=== PATIENT | female | born 1955 | race Caucasian/White ===

== ENCOUNTER 2020-12-21 21:24 | Emergency (ER) | payer OTHER, SELFPAY ==
[2020-12-21 21:35] VITALS: BP 163/69; PULSE 69; RESP 18; TEMP 36.6; O2SAT 100; BMI 36.1
[2020-12-21 22:44] LABS: COVID-19 Test Negative (Negative)
--- NOTE | 2020-12-22 01:25 | ED_ITS ---
HPI - URI/Sore Throat General Chief Complaint: Upper Respiratory Symptoms Stated Complaint: chest congestion,cough Time Seen by Provider: 12/22/20 01:17 Source: patient Mode of arrival: ambulatory Limitations: no limitations History of Present Illness HPI Narrative: Patient history of asthma using inhalers frequently gets sick post COVID-19 vaccinated complaining of increased cough and congestion for last 3 4 days no fever no chills no significant shortness of breath saturating 100% at room air on arrival Related Data Previous Rx's Medication Instructions Recorded doxycycline hyclate 100 mg tablet 100 mg PO BID #20 tab 12/22/20 prednisone 20 mg tablet 40 mg PO DAILY #10 tab 12/22/20 Allergies Allergy/AdvReac Type Severity Reaction Status Date / Time Penicillins Allergy Mild RASH Unverified 11/05/19 15:00 acetaminophen [From VICODIN] Allergy Unknown STOMACH Unverified 11/05/19 15:00 UPSET From VICODIN Allergy Unknown STOMACH Uncoded 11/05/19 15:00 UPSET Review of Systems Review of Systems: Yes all other systems are reviewed and are negative [facility] [place] Social History Social History Advance Directives: No Physical Exam Vital Signs: Vital Signs: Last Vital Signs Temp 97.8 F 12/21/20 21:35 Pulse 69 12/21/20 21:35 Resp 18 12/21/20 21:35 BP 163/69 H 12/21/20 21:35 Pulse Ox 100 12/21/20 21:35 Body Mass Index 36.1 Appearance: Alert. Oriented X3. No acute distress. Eyes: No pallor icterus ENT: Pharynx normal. Oral Mucosa moist Neck: Normal inspection. Neck supple. CVS: Normal heart rate and rhythm. Pulses normal. Respiratory: No respiratory distress. Equal air entry bilateral, no wheezing/rales/rhonchi prolonged expiration Abdomen: Soft and nontender. Bowel sounds are present, no mass palpable, no CVA tenderness Skin: Skin warm and dry. Normal skin color. Normal skin turgor. Extremities: No lower extremity edema. No calf tenderness Neuro: Oriented X 3. MDM - URI/Sore Throat MDM Narrative Medical decision making narrative: Patient has swelling bronchitis COVID-19 negative discharge patient home on prednisone doxycycline Lab Data Labs: Lab Results 12/21/20 Range/Units 22:25 COVID-19 ([facility]) Negative (Negative) COVID-19 Clin Com See Note Discharge Plan Discharge Clinical Impression: Bronchitis Patient Disposition: Home, Self-Care Instructions: Acute Bronchitis (ED) Additional Instructions: Continue your inhaler take prednisone antibiotic as prescribed follow with PCP Prescriptions: New doxycycline hyclate 100 mg tablet 100 mg PO BID Qty: 20 RF: 0 prednisone 20 mg tablet 40 mg PO DAILY Qty: 10 RF: 0
[2020-12-22] MEDS: predniSONE 20 MG TABLET 40 MG PO (01:36)
[2020-12-22 01:45] VITALS: BP 163/63; PULSE 66; RESP 18; O2SAT 99
== END 2020-12-22 01:47 | disposition home or self-care (01) ==
PROVIDERS: Emergency Provider Internal Medicine
DX: J40 Bronchitis, not specified as acute or chronic (principal); Z20.822 Contact with and (suspected) exposure to COVID-19
CPT/HCPCS: 36415; 87635; 99283; 99284

== ENCOUNTER 2021-02-21 19:41 | Emergency (ER) | payer OTHER, SELFPAY ==
--- NOTE | ~2021-02-21 | XR_ITS ---
EXAMINATION: XR CHEST CLINICAL INFORMATION: Covid 19 positive, cough, fever and chest pain. COMPARISON: Chest radiograph dated from 07/12/2012. TECHNIQUE: AP view of the chest was obtained. FINDINGS: Minimal interstitial prominence without focal airspace opacities, pleural effusions or pneumothorax. Unchanged appearance of the cardiomediastinal silhouette. No acute osseous abnormalities. Visualized upper abdomen is within normal limits. 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 XR/XR chest 1V IMPRESSION: Mild interstitial prominence, increased since 2012 which could be seen in the setting of asthma, bronchitis or atypical infections. No focal consolidation.
[2021-02-21 19:53] VITALS: BP 171/71; BP 187/64; PULSE 78; RESP 20; TEMP 37.4; O2SAT 97; O2SAT 98; BMI 36.2
--- NOTE | 2021-02-21 21:35 | ECG_ITS ---
Test Reason : NAUSEA Blood Pressure : / mmHG Vent. Rate : 085 BPM Atrial Rate : 085 BPM P-R Int : 146 ms QRS Dur : 098 ms QT Int : 352 ms P-R-T Axes : 023 -18 124 degrees QTc Int : 418 ms Normal sinus rhythm Left ventricular hypertrophy with repolarization abnormality ( R in aVL , [place] product ) Cannot rule out Septal infarct , age undetermined Abnormal ECG When compared with ECG of 12-JUL-2012 04:02, Minimal criteria for Septal infarct are now Present ST now depressed in Lateral leads Nonspecific T wave abnormality no longer evident in Inferior leads Referred By: Howard Bernard Electronically Signed By:JANET CHANG MD
--- NOTE | 2021-02-21 21:37 | ED.GENADULT ---
HPI - General Adult General Chief complaint: Nausea/Vomiting/Diarrhea Stated complaint: Chest pain/ Covid + Time Seen by Provider: 02/21/21 19:55 Source: patient Mode of arrival: EMS Limitations: no limitations History of Present Illness HPI narrative: 65-year-old female who presents emergency department for evaluation of worsening symptoms secondary to COVID-19 infection. The patient received the 2 shot Moderna COVID-19 vaccination. She states that she tested positive for COVID-19 on 02/13/2020, approximately 9 days prior to evaluation. She states that her symptoms have gotten worse over the past 3 days. She states that she has a constant, throbbing headache which is moderate to severe in intensity. She states that she has had a persistent nonproductive cough, fever and shortness of breath. She states that she has chest pain which she describes as pressure sensation located throughout her chest which is worse with coughing and with breathing. She complains of nausea and vomiting and has had multiple episodes of vomiting over the past 3 days. She has not been able to eat food she has been able to drink small amounts of fluid. She states she has severe myalgias and arthralgias. The patient states she is feeling very weak and dizzy. The patient is a kidney transplant patient. She states she had a kidney transplanted at [facility] approximately 9 years ago. Related Data Home Medications Medication Instructions Recorded Confirmed atorvastatin 40 mg tablet 1 tab PO BEDTIME 02/21/21 02/21/21 calcifediol 30 mcg capsule,24 1 cap PO DAILY 02/21/21 02/21/21 hr,extended release (Rayald) carvedilol 12.5 mg tablet 1 tab PO BID 02/21/21 02/21/21 dorzolamide 22.3 mg-timolol 6.8 1 drp OPHTHALMIC (EYE) BID 02/21/21 02/21/21 mg/mL eye drops gabapentin 100 mg capsule 100 - 300 mg PO TID PRN 02/21/21 02/21/21 insulin glargine 100 unit/mL (3 35 unit SUBCUT BEDTIME 02/21/21 02/21/21 mL) subcutaneous pen (Lantus Solostar U-100 Insulin) insulin lispro 100 unit/mL 16 unit SUBCUT TID 02/21/21 02/21/21 subcutaneous pen (Humalog KwikPen (U-100) Insulin) latanoprost 0.005 % eye drops 1 drp OPHTHALMIC (EYE) BEDTIME 02/21/21 02/21/21 losartan 50 mg tablet 1 tab PO DAILY 02/21/21 02/21/21 mycophenolate sodium 180 mg 2 tab PO BID 02/21/21 02/21/21 tablet,delayed release oxycodone-acetaminophen 5 mg-325 1 tab PO QID PRN 02/21/21 02/21/21 mg tablet pantoprazole 40 mg tablet,delayed 1 tab PO DAILY 02/21/21 02/21/21 release tacrolimus 1 mg capsule, 3 cap PO BID 02/21/21 02/21/21 immediate-release Previous Rx's Medication Instructions Recorded azithromycin 250 mg tablet See Rx Instructions .ROUTE 02/22/21 (Zithromax Z-Sunny) .COMPLEX #6 tab morphine 15 mg immediate release 15 mg PO Q4-6H PRN #10 tab 02/22/21 tablet ondansetron 4 mg disintegrating 4 mg PO Q6-8H PRN #14 tab 02/22/21 tablet Allergies Allergy/AdvReac Type Severity Reaction Status Date / Time Penicillins Allergy Mild RASH Unverified 11/05/19 15:00 acetaminophen [From VICODIN] Allergy Unknown STOMACH Unverified 11/05/19 15:00 UPSET From VICODIN Allergy Unknown STOMACH Uncoded 11/05/19 15:00 UPSET [facility] Past Medical History [facility] Narrative: Past medical history: Diabetes mellitus, hypertension, hyperlipidemia, coronary artery disease with stents placed 13 years ago, asthma, bronchitis, kidney transplant 9 years ago, diabetic neuropathy, glaucoma, pinched nerve in her neck and back. Past surgical history: Kidney transplant 9 years prior at [facility], x2. Social history: She denies tobacco alcohol and drug use. Social History Social History Advance Directives: No Advance Directives Information Provided: No Physical Exam Vital Signs: Vital Signs: Last Vital Signs Temp 99.4 F 02/21/21 19:53 Pulse 78 02/22/21 00:00 Resp 15 02/22/21 00:25 BP 172/58 H 02/22/21 00:00 Pulse Ox 96 02/22/21 00:00 BMI result Body Mass Index 36.2 Const: Other: Awake, alert, female patient, very pleasant and cooperative, very persistent dry nonproductive sending cough, appears to be in distress secondary to her cough and her body aches. Answers all questions appropriately. HENMT: Head: Yes normal to inspection, Yes normocephalic and Yes atraumatic Ears: external ears normal General nose exam: Normal external nose present Face and sinus: Yes normal facial exam Mouth: Normal oral and palatal mucosa present Throat: Yes posterior oropharynx normal Eyes: General: appearance normal, both eyes and all related structures Pupils: Equal, round and reactive pupils present Neck: Neck: Yes normal visual inspection, Yes no lymphadenopathy, Yes trachea midline and Yes supple Chest: Chest palpation & inspection: normal inspection of the chest and normal palpation of entire chest wall Resp: Effort & Inspection: normal respiratory effort and able to speak in complete sentences Auscultation: clear to auscultation bilaterally Cardio: Rate: regular rate Rhythm: regular rhythm Heart sounds: S1 normal heart sound present, S2 normal heart sound present and no murmurs GI: Inspection: Yes normal to inspection Palpation (GI): Soft to palpation, nontender and no guarding Auscultation: normal bowel sounds : General: Yes no CVA tenderness Back/Spine/Pelvis: Back: no CVA tenderness Skin: General skin exam: no rashes or lesions noted Neuro: Cranial nerves: Yes CN's II-XII intact bilaterally and Yes Equal, round and reactive pupils present Cognition (Neuro): normal cognition Motor exam (neuro): 5/5 motor strength present throughout Extrem: General: Yes normal to inspection Psych: Appearance: grossly normal Speech and movement: Normal speech and movement present Affect: normal affect Attitude: cooperative Thought process: Normal thought process present Thought content: Normal thought content present Course Course Course Narrative: 65-year-old female with multiple medical problems including renal transplant 9 years prior who tested positive for COVID-19 on 02/13/2020 (9 days prior to evaluation) who presents emergency department for evaluation of worsening symptoms including chest pain, shortness of breath, body aches, nausea, vomiting, diarrhea and increased fatigue. Initial vital signs revealed a temperature of 99.4?, pulse of 78, respiratory 20, O2 saturation of 97% on room air. The patient did have an elevated blood pressure of 187/64. Exam was otherwise unremarkable. The patient's symptoms are consistent with her COVID-19 infection. I ordered a CBC, CMP, BNP, ESR, ferritin, LDH, lactic acid, lipase, PT/INR, PTT, procalcitonin, troponin and urinalysis. I will also obtain an EKG and a chest x-ray. Patient was ordered to get morphine 4 mg IV, Zofran 4 mg IV, Tylenol 975 mg orally and normal saline x1 L. 0109: Laboratory evaluation: Anemia with an H&H of 11.3 and 34.7, this is chronic. Potassium was slightly elevated at 5.3. BUN was elevated at 25 with a normal creatinine of 1.2. Glucose was elevated 176. COVID-19 inflammatory markers were elevated (CRP 3.95, ferritin 1454, LDH 247). High sensitive troponin I was elevated at 25.7 however given the fact that she has had pain for 5 days I do not think that this represents myocardial infarction. Chest x-ray revealed very subtle increase in interstitial markings with no acute infiltrate. Twelve EKG revealed inverted T-waves in lead 1 and aVL with poor R-wave progression, the poor R-wave progression is old. At this time I believe the patient's symptoms are consistent with COVID-19 infection, she is not hypoxic and her chest x-ray revealed mild interstitial changes which could be consistent with early COVID pneumonia verses atypical pneumonia. Given fact that she is on immunosuppressant several start her on Zithromax Z-Sunny. Patient does take oxycodone at home but this is not controlling her pain. She was advised to stop taking her oxycodone she was prescribed morphine. She is also given prescription for Zofran. She was discharged home with printed and verbal instructions. Medical Decision Making Lab Data Result diagrams: 02/22/21 00:08 02/21/21 22:06 Labs: Lab Results 02/21/21 02/21/21 02/21/21 Range/Units 22:06 22:06 22:06 WBC (4.8-10.8) X10*3/uL RBC (4.20-5.50) X10*6/uL Hgb (12.0-16.0) g/dl Hct (37.0-47.0) % MCV (80.0-98.0) fL MCH (27.0-33.0) pg MCHC (31.0-35.0) g/dl RDW (11.0-16.0) % Plt Count (160-400) X10*3/uL MPV (9.4-12.3) fL Immature Gran % (Auto) (0.0-0.4) % Neut % (Auto) (45-73) % Lymph % (Auto) (20-40) % Bay % (Auto) (2-11) % Eos % (Auto) (0-4) % Baso % (Auto) (0-2) % Lymph # (Auto) (1.2-4.9) X10*3/uL Bay # (Auto) (0.1-1.2) X10*3/uL Eos # (Auto) (0.0-0.4) X10*3/uL Baso # (Auto) (0.0-0.2) X10*3/uL Abs Immat Gran (auto) (0.00-0.03) X10*3/uL Absolute Neuts (auto) (2.0-8.3) x10*3/uL Absolute Nucleated RBC (0.0-0.012) X10*3/uL Nucleated RBC % (auto) (0.0-0.2) /100WBC PT 13.5 H (9.9-13.0) SEC INR 1.2 H (0.9-1.1) APTT 32.9 (24.1-38.0) SEC Sodium 134 L (135-145) mmol/L Potassium 5.3 H (3.3-5.1) mmol/L Chloride 107 (96-108) mmol/L Carbon Dioxide 20 L (22-29) mmol/L Anion Gap 12 (12-20) BUN 25 H (9-16) mg/dL Creatinine 1.21 (0.5-1.4) mg/dL Estim Creat Clear Calc 47.7 Estimated GFR 45 Random Glucose 176 H (60-115) mg/dL Lactic Acid (0.5-2.0) mmol/L Calcium 9.9 (8.4-10.2) mg/dL Ferritin 1454 H (10-250) ng/mL Total Bilirubin 0.3 (0.0-1.0) mg/dL AST 21 (5-31) U/L ALT 24 (0-31) U/L Alkaline Phosphatase 140 H (39-117) U/L Lactate Dehydrogenase 247 H (122-220) U/L Troponin I High Sens (<3.5-17.0) ng/L C-Reactive Protein 3.95 H (< or = 0.50) mg/dL B-Natriuretic Peptide (<100) pg/mL Total Protein 7.9 (6.5-8.0) g/dL Albumin 4.6 (3.5-5.0) g/dL Lipase 23 (8-78) U/L Procalcitonin 0.07 ng/mL 02/22/21 02/22/21 02/22/21 Range/Units 00:08 00:08 00:08 WBC 5.3 (4.8-10.8) X10*3/uL RBC 3.78 L (4.20-5.50) X10*6/uL Hgb 11.3 L (12.0-16.0) g/dl Hct 34.1 L (37.0-47.0) % MCV 90.2 (80.0-98.0) fL MCH 29.9 (27.0-33.0) pg MCHC 33.1 (31.0-35.0) g/dl RDW 12.2 (11.0-16.0) % Plt Count 170 (160-400) X10*3/uL MPV 11.3 (9.4-12.3) fL Immature Gran % (Auto) 0.2 (0.0-0.4) % Neut % (Auto) 75.1 H (45-73) % Lymph % (Auto) 15.4 L (20-40) % Bay % (Auto) 9.1 (2-11) % Eos % (Auto) 0.2 (0-4) % Baso % (Auto) 0.0 (0-2) % Lymph # (Auto) 0.8 L (1.2-4.9) X10*3/uL Bay # (Auto) 0.5 (0.1-1.2) X10*3/uL Eos # (Auto) 0.0 (0.0-0.4) X10*3/uL Baso # (Auto) 0.0 (0.0-0.2) X10*3/uL Abs Immat Gran (auto) 0.01 (0.00-0.03) X10*3/uL Absolute Neuts (auto) 4.0 (2.0-8.3) x10*3/uL Absolute Nucleated RBC 0.000 (0.0-0.012) X10*3/uL Nucleated RBC % (auto) 0.0 (0.0-0.2) /100WBC PT (9.9-13.0) SEC INR (0.9-1.1) APTT (24.1-38.0) SEC Sodium (135-145) mmol/L Potassium (3.3-5.1) mmol/L Chloride (96-108) mmol/L Carbon Dioxide (22-29) mmol/L Anion Gap (12-20) BUN (9-16) mg/dL Creatinine (0.5-1.4) mg/dL Estim Creat Clear Calc Estimated GFR Random Glucose (60-115) mg/dL Lactic Acid 0.8 (0.5-2.0) mmol/L Calcium (8.4-10.2) mg/dL Ferritin (10-250) ng/mL Total Bilirubin (0.0-1.0) mg/dL AST (5-31) U/L ALT (0-31) U/L Alkaline Phosphatase (39-117) U/L Lactate Dehydrogenase (122-220) U/L Troponin I High Sens 25.7 H (<3.5-17.0) ng/L C-Reactive Protein (< or = 0.50) mg/dL B-Natriuretic Peptide 40 (<100) pg/mL Total Protein (6.5-8.0) g/dL Albumin (3.5-5.0) g/dL Lipase (8-78) U/L Procalcitonin ng/mL ECG Data Attestation: I personally reviewed and interpreted this ECG as follows: Interpretation: 03/09/2045: Normal sinus rhythm with a rate of 85, normal [place] interval, QRS duration and QTC interval, inverted T-wave in lead 1 and aVL, poor R-wave progression V2, V3 which I believe is lead placement. No ST segment elevation, no ST segment depression, no PACs, no PVCs. Discharge Plan Discharge Clinical Impression: COVID-19 virus infection, Acute dehydration, Vomiting Patient Disposition: Home, Self-Care Instructions: COVID-19 (Coronavirus Disease 2019) (ED) Additional Instructions: Your laboratory evaluation was unremarkable and your kidney function I believe his at your baseline and is normal. Your inflammatory markers are elevated but this is secondary to the COVID-19 infection. Your chest x-ray revealed very subtle early pneumonia which could be caused by the COVID-19 virus or may be secondary to a bacterial infection. I am treating you with an antibiotic called Zithromax Z-Sunny. You were given Zithromax 500 mg here in the emergency department. Take your next dose of Zithromax 250 mg, 2 pills on morning, 02/23/2021. Then take 1 pill each morning for the next 4 days. Take Tylenol (acetaminophen) 500 mg pills, 2 pills every 4-6 hours as needed for pain. For pain not relieved by Tylenol take morphine 15 mg pills, 1 pill every 4 hours as needed for pain. Do not drive or work while taking this medication since they can cause sleepiness. Morphine is a narcotic medication that can be addicting. If you are concerned about addiction you can ask the pharmacist for less pills or do not get this prescription filled. While you are taking morphine you need to stop taking your oxycodone. Do not take these 2 medications together. Follow-up with your doctor in 2 days. Please return to the emergency department if your symptoms get worse or if you develop any symptoms that are concerning to you. Prescriptions: New azithromycin [Zithromax Z-Sunny] 250 mg tablet See Rx Instructions .ROUTE .COMPLEX Qty: 6 RF: 0 morphine 15 mg tablet 15 mg PO Q4-6H PRN (Reason: pain) Qty: 10 RF: 0 ondansetron 4 mg tablet,disintegrating 4 mg PO Q6-8H PRN (Reason: nausea and vomiting) Qty: 14 RF: 0 No Action losartan 50 mg tablet 1 tab PO DAILY RF: 0 latanoprost 0.005 % drops 1 drp ophthalmic (eye) BEDTIME RF: 0 atorvastatin 40 mg tablet 1 tab PO BEDTIME RF: 0 carvedilol 12.5 mg tablet 1 tab PO BID RF: 0 oxycodone-acetaminophen 5-325 mg tablet 1 tab PO QID PRN (Reason: pain) RF: 0 pantoprazole 40 mg tablet,delayed release (DR/EC) 1 tab PO DAILY RF: 0 dorzolamide-timolol 22.3-6.8 mg/mL drops 1 drp ophthalmic (eye) BID RF: 0 gabapentin 100 mg capsule 100 - 300 mg PO TID PRN (Reason: Pain) RF: 0 tacrolimus 1 mg capsule 3 cap PO BID RF: 0 insulin lispro [Humalog KwikPen Insulin] 100 unit/mL insulin pen 16 unit subcut TID RF: 0 Lantus Solostar U-100 Insulin 100 unit/mL (3 mL) insulin pen 35 unit subcut BEDTIME RF: 0 Rayaldee 30 mcg capsule,extended release 24 hr 1 cap PO DAILY RF: 0 mycophenolate sodium 180 mg tablet,delayed release (DR/EC) 2 tab PO BID RF: 0
[2021-02-21 22:22] LABS: INTERNATIONAL NORM RATIO 1.2 (0.9-1.1); Prothrombin Time 13.5 SEC (9.9-13.0)
[2021-02-21 22:25] LABS: Partial Thromboplastin Time 32.9 SEC (24.1-38.0)
[2021-02-21] MEDS: Acetaminophen 325 MG TABLET 975 MG PO (22:28)
[2021-02-21] MEDS: 0.9 % Sodium Chloride 1,000 ML 999 ML IV (22:28)
[2021-02-21] MEDS: ondansetron HCL 4 MG/2 ML VIAL IVPUSH (22:30)
[2021-02-21] MEDS: Morphine Sulfate 4 MG/ML CARTRIDGE IVPUSH (22:32)
[2021-02-21 22:45] VITALS: PULSE 80; RESP 12; O2SAT 96
[2021-02-21 22:49] LABS: Alanine Aminotransferase 24 U/L (0-31); Albumin Level 4.6 g/dL (3.5-5.0); Alkaline Phosphatase 140 U/L (39-117); Anion Gap 12 (12-20); Aspartate Amino Transferase 21 U/L (5-31); Bilirubin Total 0.3 mg/dL (0.0-1.0); Blood Urea Nitrogen 25 mg/dL (9-16); C Reactive Protein 3.95 mg/dL (< or = 0.50); Calcium 9.9 mg/dL (8.4-10.2); Carbon Dioxide 20 mmol/L (22-29); Chloride 107 mmol/L (96-108); Creatinine Clr Calc Pharmacy 47.7; Estimated Glomerular Filt Rate 45; Glucose Random 176 mg/dL (60-115); Lipase 23 U/L (8-78); Potassium 5.3 mmol/L (3.3-5.1); Sodium 134 mmol/L (135-145); Total Protein 7.9 g/dL (6.5-8.0)
[2021-02-21 22:57] LABS: Lactate Dehydrogenase 247 U/L (122-220)
--- NOTE | 2021-02-21 23:07 | PC.NURSE ---
pt a difficult stick, phlebotomy called to obtain blood after tech and RN atttempted
[2021-02-21 23:21] LABS: Ferritin 1454 ng/mL (10-250)
[2021-02-21 23:25] LABS: Procalcitonin 0.07 ng/mL
[2021-02-22] VITALS: BP 172/58; PULSE 78; RESP 16; O2SAT 96
[2021-02-22 00:18] LABS: MANUAL DIFF FLAG NO
[2021-02-22 00:21] LABS: Eosinophils Percent Auto 0.2 % (0-4); Hematocrit 34.1 % (37.0-47.0); Hemoglobin 11.3 g/dl (12.0-16.0); Imm Gran Abs Auto 0.01 X10*3/uL (0.00-0.03); Imm Gran Pct Auto 0.2 % (0.0-0.4); Lymphocytes Absolute Auto 0.8 X10*3/uL (1.2-4.9); Lymphocytes Percent Auto 15.4 % (20-40); Mean Corpuscular HGB Conc 33.1 g/dl (31.0-35.0); Mean Corpuscular Hemoglobin 29.9 pg (27.0-33.0); Mean Corpuscular Volume 90.2 fL (80.0-98.0); Mean Platelet Volume 11.3 fL (9.4-12.3); Monocytes Absolute Auto 0.5 X10*3/uL (0.1-1.2); Monocytes Percent Auto 9.1 % (2-11); Neutrophils Percent Auto 75.1 % (45-73); Platelet Count 170 X10*3/uL (160-400); Red Blood Count 3.78 X10*6/uL (4.20-5.50); Red Cell Distribution Width 12.2 % (11.0-16.0); White Blood Count 5.3 X10*3/uL (4.8-10.8)
[2021-02-22 00:25] VITALS: RESP 15
[2021-02-22] MEDS: Morphine Sulfate 4 MG/ML CARTRIDGE IVPUSH (00:25)
[2021-02-22] MEDS: Gabapentin 300 MG CAPSULE PO (00:26)
[2021-02-22] MEDS: carvediloL 12.5 MG TABLET PO (00:26)
[2021-02-22 00:29] LABS: Lactic Acid 0.8 mmol/L (0.5-2.0)
[2021-02-22 00:40] LABS: B Type Natriuretic Peptide 40 pg/mL (<100); Troponin-I High Sensitivity 25.7 ng/L (<3.5-17.0)
[2021-02-22 01:17] LABS: Erythrocyte Sedimentation Rate 34 MM/HR (0-20)
[2021-02-22] MEDS: Azithromycin 500 MG TABLET PO (01:45)
== END 2021-02-22 01:32 | disposition home or self-care (01) ==
PROVIDERS: Emergency Provider Emergency Medicine Emergency Medical Services; PCP Internal Medicine
DX: U07.1 COVID-19 (principal); E86.0 Dehydration; R11.10 Vomiting, unspecified; R06.02 Shortness of breath
CPT/HCPCS: 36415; 71045; 80053; 82728; 83605; 83615; 83690; 83880; 84145; 84484; 85025; 85610; 85652; 85730; 86140; 87040; 93005; 96361; 96374; 96375; 96376; 99284; 99285; J2270; J2405

== ENCOUNTER 2021-03-07 15:33 | Emergency (ER) | payer OTHER, SELFPAY ==
--- NOTE | ~2021-03-07 | XR_ITS ---
EXAMINATION: XR CHEST CLINICAL INFORMATION: Chest pressure COMPARISON: 02/21/2021 and 07/12/2012 TECHNIQUE: Frontal view of the chest was obtained. FINDINGS: Compared to the prior study, there's been some worsening in appearances with some increased interstitial/nodular density seen in both lungs.. Groundglass infiltrates cannot be entirely excluded. Heart size normal. No evidence of CHF. No pleural effusions are seen. XR/XR chest 1V IMPRESSION: Increased interstitial/nodular consistent both lungs and subtle groundglass infiltrates cannot be excluded. Findings may be secondary to infection. Please correlate clinically.
--- NOTE | 2021-03-07 16:06 | ECG_ITS ---
Test Reason : cp Blood Pressure : / mmHG Vent. Rate : 079 BPM Atrial Rate : 079 BPM P-R Int : 160 ms QRS Dur : 096 ms QT Int : 376 ms P-R-T Axes : 065 -17 127 degrees QTc Int : 431 ms Normal sinus rhythm Left ventricular hypertrophy with repolarization abnormality ( R in aVL , [place] product ) Cannot rule out Septal infarct (cited on or before 21-FEB-2021) Abnormal ECG When compared with ECG of 21-FEB-2021 21:46, No significant change was found Referred By: Generic ED Physician Electronically Signed By:Bill Anders
[2021-03-07 16:43] VITALS: BP 185/53; PULSE 79; RESP 18; TEMP 36.9; O2SAT 97; BMI 38.3
== END 2021-03-07 19:20 | disposition left against medical advice (07) ==
PROVIDERS: Emergency Provider Emergency Medicine; PCP Internal Medicine
DX: R07.9 Chest pain, unspecified (principal); Z86.16 Personal history of COVID-19; I10 Essential (primary) hypertension; E78.5 Hyperlipidemia, unspecified; E11.9 Type 2 diabetes mellitus without complications; J45.909 Unspecified asthma, uncomplicated
CPT/HCPCS: 71045; 93005; 99283

== ENCOUNTER 2021-03-14 13:22 | Emergency (ER) | payer OTHER, SELFPAY ==
--- NOTE | ~2021-03-14 | XR_ITS ---
EXAMINATION: XR CHEST CLINICAL INFORMATION: Cough COMPARISON: Previous chest x-rays most recent February 21 and 03/07/2021 TECHNIQUE: 2 views of the chest were obtained. FINDINGS: The cardiac and mediastinal contours are stable. The lung volumes are low. There is increasing reticular nodular disease. This is greatest in the lower lungs, left greater than right. Findings are questionable for atypical interstitial pneumonia or interstitial lung disease. This is new from prior exam from June 2012. There is no pleural effusion or pneumothorax. There are degenerative changes of the spine. 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 XR/XR chest 2V IMPRESSION: Low lung volumes and increased reticular nodular markings. Appearance is questionable for an atypical interstitial pneumonia versus interstitial lung disease. Clinical correlation is recommended. Chest CT may be helpful.
[2021-03-14 14:02] VITALS: BP 174/68; PULSE 70; RESP 22; TEMP 37.2; O2SAT 99; BMI 33.8
[2021-03-14 14:28] LABS: COVID-19 Test Negative (Negative)
--- NOTE | 2021-03-14 14:56 | ED.URI ---
HPI - URI/Sore Throat General Chief Complaint: Upper Respiratory Symptoms Stated Complaint: cough Time Seen by Provider: 03/14/21 14:48 Source: patient Mode of arrival: ambulatory Limitations: no limitations History of Present Illness HPI Narrative: Patient comes to the emergency room complaining of cough for 2 weeks. Patient states that she is not getting any better. Patient has history of asthma, has been using her inhaler, which does help. She denies fever chills. Related Data Home Medications Medication Instructions Recorded Confirmed atorvastatin 40 mg tablet 1 tab PO BEDTIME 02/21/21 02/21/21 calcifediol 30 mcg capsule,24 1 cap PO DAILY 02/21/21 02/21/21 hr,extended release (Rayaldee) carvedilol 12.5 mg tablet 1 tab PO BID 02/21/21 02/21/21 dorzolamide 22.3 mg-timolol 6.8 1 drp OPHTHALMIC (EYE) BID 02/21/21 02/21/21 mg/mL eye drops gabapentin 100 mg capsule 100 - 300 mg PO TID PRN 02/21/21 02/21/21 insulin glargine 100 unit/mL (3 35 unit SUBCUT BEDTIME 02/21/21 02/21/21 mL) subcutaneous pen (Lantus Solostar U-100 Insulin) insulin lispro 100 unit/mL 16 unit SUBCUT TID 02/21/21 02/21/21 subcutaneous pen (Humalog KwikPen (U-100) Insulin) latanoprost 0.005 % eye drops 1 drp OPHTHALMIC (EYE) BEDTIME 02/21/21 02/21/21 losartan 50 mg tablet 1 tab PO DAILY 02/21/21 02/21/21 mycophenolate sodium 180 mg 2 tab PO BID 02/21/21 02/21/21 tablet,delayed release oxycodone-acetaminophen 5 mg-325 1 tab PO QID PRN 02/21/21 02/21/21 mg tablet pantoprazole 40 mg tablet,delayed 1 tab PO DAILY 02/21/21 02/21/21 release tacrolimus 1 mg capsule, 3 cap PO BID 02/21/21 02/21/21 immediate-release Previous Rx's Medication Instructions Recorded azithromycin 250 mg tablet See Rx Instructions .ROUTE 02/22/21 (Zithromax Z-Sunny) .COMPLEX #6 tab morphine 15 mg immediate release 15 mg PO Q4-6H PRN #10 tab 02/22/21 tablet ondansetron 4 mg disintegrating 4 mg PO Q6-8H PRN #14 tab 02/22/21 tablet albuterol sulfate 90 mcg/actuation 2 puff INHALATION Q4-6H PRN #8.5 g 03/14/21 aerosol inhaler azithromycin 250 mg tablet See Rx Instructions .ROUTE 03/14/21 .COMPLEX #6 tab prednisone 50 mg tablet 50 mg PO DAILY #5 tab 03/14/21 Allergies Allergy/AdvReac Type Severity Reaction Status Date / Time Penicillins Allergy Mild RASH Unverified 11/05/19 15:00 acetaminophen [From VICODIN] Allergy Unknown STOMACH Unverified 11/05/19 15:00 UPSET From VICODIN Allergy Unknown STOMACH Uncoded 11/05/19 15:00 UPSET Review of Systems Review of Systems: Constitutional : No Weight loss, No Fever, No Chills, No Night Sweats, No Fatigue, No Malaise ENT/Mouth : No Hearing loss, No Ear Pain, No Nasal Congestion, No Sinus Pain, No Hoarseness, No sore throat, No Rhinorrhea, No Swallowing Difficulty Eyes: No Eye Pain, No Swelling, No Redness, No Foreign Body, No Discharge, No Vision Changes Cardiovascular : No Chest Pain, No SOB, No Dyspnea on Exertion, No Orthopnea, No Edema, No Palpitations Respiratory : Complaining of dry Cough, No Sputum, intermittent Wheezing, No Smoke Exposure, No Dyspnea Gastrointestinal : No Nausea, No Vomiting, No Diarrhea, No Constipation, No abdominal Pain, No Hematochezia, No Melena Genitourinary : no irregular bleeding, No Dysuria, No Urinary Frequency, No Hematuria, No Urinary Incontinence, No Urgency, No Flank Pain, No Urinary Flow Changes, No Hesitancy Musculoskeletal : No joint pain, No Myalgias, No Joint Swelling Skin : No Skin Lesions, No rash Neuro : No Weakness, No Numbness, No Paresthesias, No Loss of Consciousness, No Dizziness, No Headache Psych : No Anxiety/Panic, No Depression, No SI/HI/AH/VH, No Social Issues, Heme/Lymph: No Bruising, No Bleeding,No Lymphadenopathy Endocrine : No Polyuria, No Polydipsia, No Temperature Intolerance [facility] Past Medical History Medical History (Updated 03/14/21 @ 14:59 by Ally Rey MD) Asthma exacerbation Bronchitis Diabetes High cholesterol HTN (hypertension) Surgical History (Updated 03/14/21 @ 14:05 by Luke Carcamo) Kidney transplant recipient Social History Social History Advance Directives: No Advance Directives Information Provided: No Patient : No Physical Exam Vital Signs: Vital Signs: Last Vital Signs Temp 99 F 03/14/21 14:02 Pulse 70 03/14/21 14:02 Resp 22 H 03/14/21 14:02 BP 174/68 H 03/14/21 14:02 Pulse Ox 99 03/14/21 14:02 BMI result Body Mass Index 33.8 Const: Other: Appearance: Alert. Oriented X3. No acute distress. Eyes: Pupils equal, round and reactive to light. ENT: Pharynx normal. Neck: Normal inspection. Neck supple. No lymph nodes noted. No crepitus CVS: Normal heart rate and rhythm. Pulses normal. Normal S1 and S2 Respiratory: No respiratory distress. Breath sounds normal. No Wheezing. Bilateral rhonchi Abdomen: Soft and nontender. No rigidity. No distention. Skin: Skin warm and dry. Normal skin color. Normal skin turgor. Extremities: No lower extremity edema. No lower extremity edema. No Lacerations. No Rash Neuro: Oriented X 3. No motor deficit. No sensory deficit. Moving all extermities. No slurred speech. Course Course Course Narrative: I discussed the physical exam and x-rays with the patient. Patient may be developing pneumonia. Patient will be started on antibiotic. COVID test negative MDM - URI/Sore Throat Lab Data Labs: Lab Results 03/14/21 Range/Units 14:09 COVID-19 ([facility]) Negative (Negative) COVID-19 Clin Com See Note Imaging Data Chest x-ray: Radiologist's impression: The cardiac and mediastinal contours are stable. The lung volumes are low. There is increasing reticular nodular disease. This is greatest in the lower lungs, left greater than right. Findings are questionable for atypical interstitial pneumonia or interstitial lung disease. This is new from prior exam from June 2012. There is no pleural effusion or pneumothorax. There are degenerative changes of the spine. 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 XR/XR chest 2V IMPRESSION: Low lung volumes and increased reticular nodular markings. Appearance is questionable for an atypical interstitial pneumonia versus interstitial lung disease. Clinical correlation is recommended. Chest CT may be helpful. Discharge Plan Discharge Clinical Impression: Pneumonia Patient Disposition: Home, Self-Care Instructions: Pneumonia (ED) Additional Instructions: Please follow-up with your primary care physician tomorrow. If you have any worsening or new symptoms, please return to the emergency room or call 911 Prescriptions: New azithromycin 250 mg tablet See Rx Instructions .ROUTE .COMPLEX Qty: 6 RF: 0 albuterol sulfate 90 mcg/actuation HFA aerosol inhaler 2 puff inhalation Q4-6H PRN (Reason: shortness of breath or wheezing) Qty: 8.5 RF: 0 prednisone 50 mg tablet 50 mg PO DAILY Qty: 5 RF: 0 No Action losartan 50 mg tablet 1 tab PO DAILY RF: 0 latanoprost 0.005 % drops 1 drp ophthalmic (eye) BEDTIME RF: 0 atorvastatin 40 mg tablet 1 tab PO BEDTIME RF: 0 carvedilol 12.5 mg tablet 1 tab PO BID RF: 0 oxycodone-acetaminophen 5-325 mg tablet 1 tab PO QID PRN (Reason: pain) RF: 0 pantoprazole 40 mg tablet,delayed release (DR/EC) 1 tab PO DAILY RF: 0 dorzolamide-timolol 22.3-6.8 mg/mL drops 1 drp ophthalmic (eye) BID RF: 0 gabapentin 100 mg capsule 100 - 300 mg PO TID PRN (Reason: Pain) RF: 0 tacrolimus 1 mg capsule 3 cap PO BID RF: 0 insulin lispro [Humalog KwikPen Insulin] 100 unit/mL insulin pen 16 unit subcut TID RF: 0 Lantus Solostar U-100 Insulin 100 unit/mL (3 mL) insulin pen 35 unit subcut BEDTIME RF: 0 Rayaldee 30 mcg capsule,extended release 24 hr 1 cap PO DAILY RF: 0 mycophenolate sodium 180 mg tablet,delayed release (DR/EC) 2 tab PO BID RF: 0 azithromycin [Zithromax Z-Sunny] 250 mg tablet See Rx Instructions .ROUTE .COMPLEX Qty: 6 RF: 0 morphine 15 mg tablet 15 mg PO Q4-6H PRN (Reason: pain) Qty: 10 RF: 0 ondansetron 4 mg tablet,disintegrating 4 mg PO Q6-8H PRN (Reason: nausea and vomiting) Qty: 14 RF: 0
== END 2021-03-14 15:05 | disposition home or self-care (01) ==
PROVIDERS: Emergency Provider Emergency Medicine; PCP Internal Medicine
DX: J18.9 Pneumonia, unspecified organism (principal); R05.9 Cough, unspecified; Z20.822 Contact with and (suspected) exposure to COVID-19; Z79.899 Other long term (current) drug therapy
CPT/HCPCS: 71046; 87635; 99283

== ENCOUNTER 2021-05-11 22:37 | Emergency (ER) | payer OTHER, SELFPAY ==
[2021-05-11 22:56] VITALS: BP 156/54; PULSE 71; RESP 16; TEMP 36.5; O2SAT 100; BMI 36.4
--- NOTE | 2021-05-12 03:50 | ED_ITS ---
HPI - General Adult General Chief complaint: General Medical Stated complaint: Ear ache/sore throat Time Seen by Provider: 05/12/21 03:30 Source: patient Mode of arrival: ambulatory Limitations: no limitations History of Present Illness HPI narrative: Patient comes emergency room complaining of a vesicular rash popping on the left side of her face. Patient states it started out very itchy but now it is very tender to touch. Patient denies fever or chills Related Data Home Medications Medication Instructions Recorded Confirmed atorvastatin 40 mg tablet 1 tab PO BEDTIME 02/21/21 02/21/21 calcifediol 30 mcg capsule,24 1 cap PO DAILY 02/21/21 02/21/21 hr,extended release (Rayaldee) carvedilol 12.5 mg tablet 1 tab PO BID 02/21/21 02/21/21 dorzolamide 22.3 mg-timolol 6.8 1 drp OPHTHALMIC (EYE) BID 02/21/21 02/21/21 mg/mL eye drops gabapentin 100 mg capsule 100 - 300 mg PO TID PRN 02/21/21 02/21/21 insulin glargine 100 unit/mL (3 35 unit SUBCUT BEDTIME 02/21/21 02/21/21 mL) subcutaneous pen (Lantus Solostar U-100 Insulin) insulin lispro 100 unit/mL 16 unit SUBCUT TID 02/21/21 02/21/21 subcutaneous pen (Humalog KwikPen (U-100) Insulin) latanoprost 0.005 % eye drops 1 drp OPHTHALMIC (EYE) BEDTIME 02/21/21 02/21/21 losartan 50 mg tablet 1 tab PO DAILY 02/21/21 02/21/21 mycophenolate sodium 180 mg 2 tab PO BID 02/21/21 02/21/21 tablet,delayed release oxycodone-acetaminophen 5 mg-325 1 tab PO QID PRN 02/21/21 02/21/21 mg tablet pantoprazole 40 mg tablet,delayed 1 tab PO DAILY 02/21/21 02/21/21 release tacrolimus 1 mg capsule, 3 cap PO BID 02/21/21 02/21/21 immediate-release Previous Rx's Medication Instructions Recorded azithromycin 250 mg tablet See Rx Instructions .ROUTE 02/22/21 (Zithromax Z-Sunny) .COMPLEX #6 tab morphine 15 mg immediate release 15 mg PO Q4-6H PRN #10 tab 02/22/21 tablet ondansetron 4 mg disintegrating 4 mg PO Q6-8H PRN #14 tab 02/22/21 tablet albuterol sulfate 90 mcg/actuation 2 puff INHALATION Q4-6H PRN #8.5 g 03/14/21 aerosol inhaler azithromycin 250 mg tablet See Rx Instructions .ROUTE 03/14/21 .COMPLEX #6 tab prednisone 50 mg tablet 50 mg PO DAILY #5 tab 03/14/21 tramadol 50 mg tablet 50 mg PO TID PRN #10 tab 05/12/21 valacyclovir 1 gram tablet 1,000 mg PO TID 7 Days #21 tab 05/12/21 Allergies Allergy/AdvReac Type Severity Reaction Status Date / Time Penicillins Allergy Mild RASH Verified 05/11/21 22:55 acetaminophen [From VICODIN] Allergy Unknown STOMACH Verified 05/11/21 22:55 UPSET From VICODIN Allergy Unknown STOMACH Uncoded 05/11/21 22:55 UPSET Review of Systems Review of Systems: Constitutional : No Weight loss, No Fever, No Chills, No Night Sweats, No Fatigue, No Malaise ENT/Mouth : No Hearing loss, No Ear Pain, No Nasal Congestion, No Sinus Pain, No Hoarseness, No sore throat, No Rhinorrhea, No Swallowing Difficulty Eyes: No Eye Pain, No Swelling, No Redness, No Foreign Body, No Discharge, No Vision Changes Cardiovascular : No Chest Pain, No SOB, No Dyspnea on Exertion, No Orthopnea, No Edema, No Palpitations Respiratory : No Cough, No Sputum, No Wheezing, No Smoke Exposure, No Dyspnea Gastrointestinal : No Nausea, No Vomiting, No Diarrhea, No Constipation, No abdominal Pain, No Hematochezia, No Melena Genitourinary : no irregular bleeding, No Dysuria, No Urinary Frequency, No Hematuria, No Urinary Incontinence, No Urgency, No Flank Pain, No Urinary Flow Changes, No Hesitancy Musculoskeletal : No joint pain, No Myalgias, No Joint Swelling Skin : Vesicular itchy and painful rash to the left side of the face Neuro : No Weakness, No Numbness, No Paresthesias, No Loss of Consciousness, No Dizziness, No Headache Psych : No Anxiety/Panic, No Depression, No SI/HI/AH/VH, No Social Issues, Heme/Lymph: No Bruising, No Bleeding,No Lymphadenopathy Endocrine : No Polyuria, No Polydipsia, No Temperature Intolerance [facility] Past Medical History Medical History Asthma exacerbation Bronchitis Diabetes High cholesterol HTN (hypertension) Surgical History (Updated 03/14/21 @ 14:05 by Luke Carcamo) Kidney transplant recipient Social History Social History Advance Directives: No Patient : No Physical Exam ED Vital Signs: Vital Signs - 24 hr 05/11/21 22:56 Temperature 97.7 F Pulse Rate 71 Respiratory Rate 16 Blood Pressure 156/54 H Pulse Oximetry 100 BMI result Body Mass Index 36.4 Const Other: Appearance: Alert. Oriented X3. No acute distress. Eyes: Pupils equal, round and reactive to light. ENT: Pharynx normal. Bilateral tympanic membranes and ear canals within normal limits. No oropharyngeal vesicles, rash Neck: Normal inspection. Neck supple. No lymph nodes noted. No crepitus CVS: Normal heart rate and rhythm. Pulses normal. Normal S1 and S2 Respiratory: No respiratory distress. Breath sounds normal. No Wheezing. No rales Abdomen: Soft and nontender. No rigidity. No distention. Skin: Skin warm and dry. Normal skin color. Normal skin turgor. Patient has vesicular rash tender to touch on the left side of the face, not involving the nose or the eye Extremities: No lower extremity edema. No Lacerations. No Rash Neuro: Oriented X 3. No motor deficit. No sensory deficit. Moving all extremities. No slurred speech. CN 2 through 12 grossly intact Psych: calm, cooperative, normal affect Course Course Course Narrative: I discussed with the patient that she likely has shingles. Patient states that she has had shingles in the past. She has not been immunized. Patient was given 1 dose of 1000 mg valacyclovir and tramadol Discharge Plan Discharge Clinical Impression: Shingles Patient Disposition: Home, Self-Care Instructions: Shingles (ED) Additional Instructions: Please follow-up with your primary care physician tomorrow. If you have any worsening or new symptoms, please return to the emergency room or call 911 Prescriptions: New valacyclovir 1 gram tablet 1,000 mg PO TID 7 Days Qty: 21 0RF tramadol 50 mg tablet 50 mg PO TID PRN (Reason: pain) Qty: 10 0RF No Action losartan 50 mg tablet 1 tab PO DAILY 0RF latanoprost 0.005 % drops 1 drp ophthalmic (eye) BEDTIME 0RF atorvastatin 40 mg tablet 1 tab PO BEDTIME 0RF carvedilol 12.5 mg tablet 1 tab PO BID 0RF oxycodone-acetaminophen 5-325 mg tablet 1 tab PO QID PRN (Reason: pain) 0RF pantoprazole 40 mg tablet,delayed release (DR/EC) 1 tab PO DAILY 0RF dorzolamide-timolol 22.3-6.8 mg/mL drops 1 drp ophthalmic (eye) BID 0RF gabapentin 100 mg capsule 100 - 300 mg PO TID PRN (Reason: Pain) 0RF tacrolimus 1 mg capsule 3 cap PO BID 0RF insulin lispro [Humalog KwikPen Insulin] 100 unit/mL insulin pen 16 unit subcut TID 0RF Lantus Solostar U-100 Insulin 100 unit/mL (3 mL) insulin pen 35 unit subcut BEDTIME 0RF Rayaldee 30 mcg capsule,extended release 24 hr 1 cap PO DAILY 0RF mycophenolate sodium 180 mg tablet,delayed release (DR/EC) 2 tab PO BID 0RF azithromycin [Zithromax Z-Sunny] 250 mg tablet See Rx Instructions .ROUTE .COMPLEX Qty: 6 0RF Rx Instructions: take 500 mg today (day 1), then 250 mg for 4 days (days 2-5) morphine 15 mg tablet 15 mg PO Q4-6H PRN (Reason: pain) Qty: 10 0RF Rx Instructions: The patient may ask for partial fill ondansetron 4 mg tablet,disintegrating 4 mg PO Q6-8H PRN (Reason: nausea and vomiting) Qty: 14 0RF azithromycin 250 mg tablet See Rx Instructions .ROUTE .COMPLEX Qty: 6 0RF Rx Instructions: For 250 mg dose pack: take 500 mg today (day 1), then 250 mg for 4 days (days 2-5) albuterol sulfate 90 mcg/actuation HFA aerosol inhaler 2 puff inhalation Q4-6H PRN (Reason: shortness of breath or wheezing) Qty: 8.5 0RF prednisone 50 mg tablet 50 mg PO DAILY Qty: 5 0RF
[2021-05-12 04:00] VITALS: BP 179/71; PULSE 63; RESP 18; O2SAT 100
[2021-05-12] MEDS: traMADoL HCL 50 MG TABLET PO (04:14)
[2021-05-12] MEDS: valACYclovir HCL 1,000 MG TABLET 1000 MG PO (04:14)
== END 2021-05-12 04:24 | disposition home or self-care (01) ==
PROVIDERS: Emergency Provider Emergency Medicine; PCP Internal Medicine
DX: B02.9 Zoster without complications (principal); E11.9 Type 2 diabetes mellitus without complications; I10 Essential (primary) hypertension; E78.5 Hyperlipidemia, unspecified; Z79.02 Long term (current) use of antithrombotics/antiplatelets; Z79.4 Long term (current) use of insulin
CPT/HCPCS: 99283; 99284

== ENCOUNTER 2021-08-30 08:49 | Outpatient (REF) | payer OTHER, SELFPAY ==
[2021-08-30 09:20] LABS: COVID-19 Test Negative (Negative)
== END 2021-08-30 08:50 | disposition home or self-care (01) ==
LOC: HO.LAB 08:49
PROVIDERS: Visit Provider Internal Medicine
DX: Z20.822 Contact with and (suspected) exposure to COVID-19 (principal)
CPT/HCPCS: 87635; C9803

== ENCOUNTER 2021-11-23 18:09 | Emergency (ER) | payer OTHER, SELFPAY ==
[2021-11-23 19:11] VITALS: BP 164/60; PULSE 69; RESP 20; TEMP 36.6; O2SAT 98; BMI 37.2
== END 2021-11-24 00:54 | disposition left against medical advice (07) ==
LOC: HO.ED 11-24 00:43
PROVIDERS: Emergency Provider Emergency Medicine; PCP Internal Medicine
DX: M79.604 Pain in right leg (principal); E11.22 Type 2 diabetes mellitus with diabetic chronic kidney disease; I12.9 Hypertensive chronic kidney disease with stage 1 through stage 4 chronic kidney disease, or unspecified chronic kidney disease; N18.9 Chronic kidney disease, unspecified; Z94.0 Kidney transplant status
CPT/HCPCS: 99281

== ENCOUNTER 2021-12-03 02:45 | Inpatient (IN) | payer OTHER, SELFPAY ==
[2021-12-03] VITALS (8 sets, daily range): BP systolic 119–180; BP diastolic 56–79; PULSE 58–78; RESP 13–18; TEMP 36.2–37.1; O2SAT 96–100; BMI 35.9
--- NOTE | 2021-12-03 | ECG_ITS ---
Test Reason : hyperk Blood Pressure : / mmHG Vent. Rate : 061 BPM Atrial Rate : 061 BPM P-R Int : 162 ms QRS Dur : 114 ms QT Int : 400 ms P-R-T Axes : 006 -20 117 degrees QTc Int : 402 ms Normal sinus rhythm Left ventricular hypertrophy with repolarization abnormality ( R in aVL , Geoffrey product ) Intra-ventricular conduction delay Abnormal ECG When compared with ECG of 03-DEC-2021 03:39, Premature atrial complexes are no longer Present Referred By: Shakir Alejandro Electronically Signed By:WARREN ESQUIVEL MD
--- NOTE | ~2021-12-03 | CT_ITS ---
EXAMINATION: CT ABDOMEN AND PELVIS WITHOUT CONTRAST CLINICAL INFORMATION: Left lower quadrant pain COMPARISON: 10/14/2009 TECHNIQUE: Multidetector volumetric imaging was performed from the superior aspect of the liver through the pubic symphysis. Sagittal and coronal reformatted images were obtained on the technologist's workstation. This CT examination was performed using dose optimization techniques as appropriate, variously including the following: *Automated exposure control *Adjustment of mA and/or kV according to patient size (this includes techniques or standardized protocols for targeted exams where dose is matched to indication/reason for exam; i.e. extremities or head) *Use of iterative reconstruction technique DLP: 661 mGy-cm FINDINGS: LUNG BASES: The visualized lung bases are unremarkable. LIVER, GALLBLADDER, AND BILIARY TREE: The liver is normal in size, shape, and attenuation. No focal hepatic lesion or biliary ductal dilatation is identified. The gallbladder is unremarkable with no evidence of radiopaque gallstones, gallbladder wall thickening, or obvious pericholecystic inflammatory changes. PANCREAS: Unremarkable. SPLEEN: Unremarkable. ADRENAL GLANDS: Unremarkable. KIDNEYS AND URETERS: [place] kidneys are atrophic without hydronephrosis. Lateral right renal cyst noted; no follow-up recommended. There is a right lower quadrant transplant kidney without hydronephrosis. A couple renal transplant cysts are present; no follow-up recommended. BLADDER: Unremarkable. GASTROINTESTINAL TRACT: No evidence of bowel obstruction or significant wall thickening. Moderate to large volume of stool throughout the colon. No free fluid or free air is seen. ABDOMINAL WALL: No significant hernia is appreciated. LYMPH NODES: Normal. VASCULAR: Extensive vascular calcifications. PELVIC VISCERA: Unremarkable. OSSEOUS STRUCTURES: Degenerative changes are noted in the spine. CT/CT abdomen pelvis wo IV con IMPRESSION: No acute findings identified in the abdomen/pelvis. Moderate to large volume of stool. Transplant kidney in the right lower quadrant.
--- NOTE | 2021-12-03 03:15 | ECG_ITS ---
Test Reason : abd pain Blood Pressure : / mmHG Vent. Rate : 062 BPM Atrial Rate : 062 BPM P-R Int : 170 ms QRS Dur : 114 ms QT Int : 412 ms P-R-T Axes : 018 -16 120 degrees QTc Int : 418 ms Sinus rhythm with Premature atrial complexes Left ventricular hypertrophy with repolarization abnormality ( R in aVL , Geoffrey product ) Intra-ventricular conduction delay Abnormal ECG When compared with ECG of 07-MAR-2021 16:38, Premature atrial complexes are now Present Minimal criteria for Septal infarct are no longer Present Referred By: Leilani Kern Electronically Signed By:WARREN ESQUIVEL MD
--- NOTE | 2021-12-03 03:21 | ED.ABDPAIN ---
HPI - Abdominal Pain General Chief Complaint: Abdominal Pain Stated Complaint: extremity pain Time Seen by Provider: 12/03/21 03:04 Source: patient and family Mode of arrival: ambulatory Limitations: no limitations History of Present Illness HPI narrative: 66 yo female with hx of DM, asthma, HLD, HTN, GERD, s/p renal transplant 10 years ago recently treated for UTI on 11/27 with bactrim comes in with LLQ pain x 5 days with mild nausea. She denies any other symptoms with it. MD elicited complaint: abdominal pain Pertinent past history: past UTI Onset (ago): day(s) (5) Pain Consistency: constant Location: LLQ Severity: moderate Quality: aching Radiation: none Migration to: no migration Exacerbating factors: movement Relieving factors: nothing Associated symptoms: nausea Related Data Home Medications Medication Instructions Recorded Confirmed atorvastatin 40 mg tablet 1 tab PO BEDTIME 02/21/21 02/21/21 calcifediol 30 mcg capsule,24 1 cap PO DAILY 02/21/21 02/21/21 hr,extended release (Rayaldee) carvedilol 12.5 mg tablet 1 tab PO BID 02/21/21 02/21/21 dorzolamide 22.3 mg-timolol 6.8 1 drp ophthalmic (eye) BID 02/21/21 02/21/21 mg/mL eye drops gabapentin 100 mg capsule 100 - 300 mg PO TID PRN Pain 02/21/21 02/21/21 insulin glargine 100 unit/mL (3 35 unit subcut BEDTIME 02/21/21 02/21/21 mL) subcutaneous pen (Lantus Solostar U-100 Insulin) insulin lispro 100 unit/mL 16 unit subcut TID 02/21/21 02/21/21 subcutaneous pen (Humalog KwikPen (U-100) Insulin) latanoprost 0.005 % eye drops 1 drp ophthalmic (eye) BEDTIME 02/21/21 02/21/21 losartan 50 mg tablet 1 tab PO DAILY 02/21/21 02/21/21 mycophenolate sodium 180 mg 2 tab PO BID 02/21/21 02/21/21 tablet,delayed release oxycodone-acetaminophen 5 mg-325 1 tab PO QID PRN pain 02/21/21 02/21/21 mg tablet pantoprazole 40 mg tablet,delayed 1 tab PO DAILY 02/21/21 02/21/21 release tacrolimus 1 mg capsule, 3 cap PO BID 02/21/21 02/21/21 immediate-release Previous Rx's Medication Instructions Recorded azithromycin 250 mg tablet See Rx Instructions PO .COMPLEX #6 02/22/21 (Zithromax Z-Sunny) tabs morphine 15 mg immediate release 15 mg PO Q4-6H PRN pain #10 tabs 02/22/21 tablet ondansetron 4 mg disintegrating 4 mg PO Q6-8H PRN nausea and 02/22/21 tablet vomiting #14 tabs albuterol sulfate 90 mcg/actuation 2 puff inhalation Q4-6H PRN 03/14/21 aerosol inhaler shortness of breath or wheezing #8.5 grams azithromycin 250 mg tablet See Rx Instructions PO .COMPLEX #6 03/14/21 tabs prednisone 50 mg tablet 50 mg PO DAILY #5 tabs 03/14/21 tramadol 50 mg tablet 50 mg PO TID PRN pain #10 tabs 05/12/21 valacyclovir 1 gram tablet 1,000 mg PO TID 7 days #21 tabs 05/12/21 Allergies Allergy/AdvReac Type Severity Reaction Status Date / Time Penicillins Allergy Mild RASH Verified 12/03/21 03:08 hydrocodone [From Vicodin] Allergy Stomach Verified 12/03/21 03:08 Upset Review of Systems Review of Systems Constitutional : No Weight loss, No Fever, No Chills ENT/Mouth : No sore throat, No Rhinorrhea Eyes: No Swelling, No Redness Cardiovascular : No Chest Pain, No SOB, NoEdema Respiratory : No Cough, No Sputum, No Wheezing Gastrointestinal : Positive Nausea, no Vomiting, no Diarrhea, positive abdominal Pain, No Hematochezia, No Melena Genitourinary : No Dysuria, No Urinary Frequency, No Hematuria, No Urgency Musculoskeletal : No joint pain, No Myalgias, No Joint Swelling Skin : No Skin Lesions, No rash Neuro : No Weakness, No Numbness, No Dizziness, No Headache Psych : No Anxiety/Panic, No Depression Heme/Lymph: No Bruising, No Lymphadenopathy Endocrine : No Polyuria, No Polydipsia All other systems reviewed and are negative. [facility] Past Medical History Attestation statement: The following information was validated with the patient. Medical History (Updated 12/03/21 @ 06:36 by Suhas Tovar MD) Asthma exacerbation Bronchitis Diabetes High cholesterol HTN (hypertension) Surgical History (Updated 12/03/21 @ 06:36 by Suhas Tovar MD) Kidney transplant recipient Social History Social History Alcohol intake: never Patient Tobacco Use Status: Never used Tobacco Use of substances other than those prescribed or required for medical reasons: No Advance Directives: No Patient : No Physical Exam ED Vital Signs: Vital Signs - 24 hr 12/03/21 03:08 12/03/21 04:51 12/03/21 05:24 Temperature 98.8 F 98.3 F Pulse Rate 66 78 62 Respiratory Rate 17 18 17 Blood Pressure 170/57 H 179/65 H 180/65 H Pulse Oximetry 100 100 Oxygen Delivery Method Room Air Room Air Room Air BMI result Body Mass Index 35.9 Appearance: Alert. Oriented X3. No acute distress. Eyes: Pupils equal, round and reactive to light. ENT: Pharynx normal. Neck: Normal inspection. Neck supple. CVS: Normal heart rate and rhythm. Pulses normal. Respiratory: No respiratory distress. Breath sounds normal. Abdomen: Soft and mild LLQ ttp no rebound or guarding Skin: Skin warm and dry. pale skin color. Normal skin turgor. Extremities: 1+ pitting bilateral lower extremity edema. No calf ttp Neuro: Oriented X 3. No motor deficit. No sensory deficit. Course Course Course Narrative: Cr 1.4 on 11/21 today's is much higher Dr. Acevedo personal investment adviser for nephrology 630AM. - pending call back Dr. Conner to speak to Dr. Acevedo 735am. MDM - Abdominal Pain MDM Narrative Medical decision making narrative: 66 yo female with hx of DM, asthma, HLD, HTN, GERD, s/p renal transplant 10 years ago recently treated for UTI on 11/27 with bactrim comes in with c/o LLQ pain x 5 days recent treatment for UTI - at this time will need labs, repeat UA, CT scan for renal colic/diverticulitis, IV Morphine for pain. Dispo per results and findings. Lab Data Result diagrams: 12/03/21 03:30 12/03/21 03:30 Labs: Lab Results 12/03/21 12/03/2122 Range/Units 03:25 03:30 03:30 WBC 4.7 L (4.8-10.8) X10*3/uL RBC 3.60 L (4.20-5.50) X10*6/uL Hgb 10.5 L (12.0-16.0) g/dl Hct 32.8 L (37.0-47.0) % MCV 91.1 (80.0-98.0) fL MCH 29.2 (27.0-33.0) pg MCHC 32.0 (31.0-35.0) g/dl RDW 12.3 (11.0-16.0) % Plt Count 178 (160-400) X10*3/uL MPV 11.5 (9.4-12.3) fL Immature Gran % (Auto) 0.2 (0.0-0.4) % Neut % (Auto) 51.1 (45-73) % Lymph % (Auto) 33.9 (20-40) % [place] % (Auto) 12.0 H (2-11) % Eos % (Auto) 2.4 (0-4) % Baso % (Auto) 0.4 (0-2) % Lymph # (Auto) 1.6 (1.2-4.9) X10*3/uL [place] # (Auto) 0.6 (0.1-1.2) X10*3/uL Eos # (Auto) 0.1 (0.0-0.4) X10*3/uL Baso # (Auto) 0.0 (0.0-0.2) X10*3/uL Abs Immat Gran (auto) 0.01 (0.00-0.03) X10*3/uL Absolute Neuts (auto) 2.4 (2.0-8.3) x10*3/uL Absolute Nucleated RBC 0.000 (0.0-0.012) X10*3/uL Nucleated RBC % (auto) 0.0 (0.0-0.2) /100WBC Sodium 137 (135-145) mmol/L Potassium 5.5 H (3.3-5.1) mmol/L Chloride 107 (96-108) mmol/L Carbon Dioxide 20 L (22-29) mmol/L Anion Gap 16 (12-20) BUN 43 H D (9-16) mg/dL Creatinine 2.36 H (0.5-1.4) mg/dL Estim Creat Clear Calc 24.0 Estimated GFR 21 Random Glucose 144 H (60-115) mg/dL Calcium 9.8 (8.4-10.2) mg/dL Magnesium 2.1 (1.6-2.6) mg/dL Total Bilirubin 0.2 (0.0-1.0) mg/dL Direct Bilirubin < 0.2 (0.0-0.5) mg/dL AST 19 (5-31) U/L ALT 16 (0-31) U/L Alkaline Phosphatase 103 D (39-117) U/L Total Creatine Kinase 573 H (26-140) U/L B-Natriuretic Peptide (<100) pg/mL Total Protein 7.6 (6.5-8.0) g/dL Albumin 4.5 (3.5-5.0) g/dL Lipase 28 (8-78) U/L Urine Color Urine Appearance Urine pH (5.0-9.0) Ur Specific [place] (1.005-1.025) Urine Protein (Neg-Trace) mg/dL Urine Glucose (UA) (Negative) mg/dL Urine Ketones (Negative) mg/dL Urine Blood (Negative) Urine Nitrite (Negative) Ur Leukocyte Esterase (Negative) Ur Random Sodium mmol/L Urine Creatinine mg/dL COVID-19 (VICTORIANO) Negative (Negative) COVID-19 Clin Com See Note 12/03/21 12/03/21 12/03/21 Range/Units 03:30 04:53 04:53 WBC (4.8-10.8) X10*3/uL RBC (4.20-5.50) X10*6/uL Hgb (12.0-16.0) g/dl Hct (37.0-47.0) % MCV (80.0-98.0) fL MCH (27.0-33.0) pg MCHC (31.0-35.0) g/dl RDW (11.0-16.0) % Plt Count (160-400) X10*3/uL MPV (9.4-12.3) fL Immature Gran % (Auto) (0.0-0.4) % Neut % (Auto) (45-73) % Lymph % (Auto) (20-40) % [place] % (Auto) (2-11) % Eos % (Auto) (0-4) % Baso % (Auto) (0-2) % Lymph # (Auto) (1.2-4.9) X10*3/uL [place] # (Auto) (0.1-1.2) X10*3/uL Eos # (Auto) (0.0-0.4) X10*3/uL Baso # (Auto) (0.0-0.2) X10*3/uL Abs Immat Gran (auto) (0.00-0.03) X10*3/uL Absolute Neuts (auto) (2.0-8.3) x10*3/uL Absolute Nucleated RBC (0.0-0.012) X10*3/uL Nucleated RBC % (auto) (0.0-0.2) /100WBC Sodium (135-145) mmol/L Potassium (3.3-5.1) mmol/L Chloride (96-108) mmol/L Carbon Dioxide (22-29) mmol/L Anion Gap (12-20) BUN (9-16) mg/dL Creatinine (0.5-1.4) mg/dL Estim Creat Clear Calc Estimated GFR Random Glucose (60-115) mg/dL Calcium (8.4-10.2) mg/dL Magnesium (1.6-2.6) mg/dL Total Bilirubin (0.0-1.0) mg/dL Direct Bilirubin (0.0-0.5) mg/dL AST (5-31) U/L ALT (0-31) U/L Alkaline Phosphatase (39-117) U/L Total Creatine Kinase (26-140) U/L B-Natriuretic Peptide 123 H (<100) pg/mL Total Protein (6.5-8.0) g/dL Albumin (3.5-5.0) g/dL Lipase (8-78) U/L Urine Color Yellow Urine Appearance Clear Urine pH 7.5 (5.0-9.0) Ur Specific [place] 1.010 (1.005-1.025) Urine Protein Negative (Neg-Trace) mg/dL Urine Glucose (UA) 500 H (Negative) mg/dL Urine Ketones Negative (Negative) mg/dL Urine Blood Negative (Negative) Urine Nitrite Negative (Negative) Ur Leukocyte Esterase Negative (Negative) Ur Random Sodium 64.0 mmol/L Urine Creatinine 34.01 mg/dL COVID-19 (VICTORIANO) (Negative) COVID-19 Clin Com ECG Data Attestation: I personally reviewed and interpreted this ECG as follows: ECG interpretation date: 12/03/21 ECG interpretation time: 03:47 Interpretation: Rate: 62 Rhythm: NSR with PACS [place]: left, LVH Normal P waves. Normal SUDHEER. Normal QRS complex. ST T wave : inverted in I and aVL (LVH) no INÉS qTC: normal prior studies: unchanged from priors The study has been interpreted contemporaneously by me. . Discharge Plan Discharge Clinical Impression: MARIAM (acute kidney injury) Abdominal pain Qualifiers: Abdominal location: left lower quadrant Qualified Code(s): R10.32 - Left lower quadrant pain Constipation Qualifiers: Constipation type: unspecified constipation type Qualified Code(s): K59.00 - Constipation, unspecified Patient Disposition: Admitted As Inpatient
[2021-12-03] MEDS: Morphine Sulfate 4 MG/ML CARTRIDGE IVPUSH (03:32)
[2021-12-03] MEDS: ondansetron HCL 4 MG/2 ML VIAL IVPUSH (03:32)
[2021-12-03 03:40] LABS: MANUAL DIFF FLAG NO
[2021-12-03 03:42] LABS: Basophils Percent Auto 0.4 % (0-2); Eosinophils Absolute Auto 0.1 X10*3/uL (0.0-0.4); Eosinophils Percent Auto 2.4 % (0-4); Hematocrit 32.8 % (37.0-47.0); Hemoglobin 10.5 g/dl (12.0-16.0); Imm Gran Abs Auto 0.01 X10*3/uL (0.00-0.03); Imm Gran Pct Auto 0.2 % (0.0-0.4); Lymphocytes Absolute Auto 1.6 X10*3/uL (1.2-4.9); Lymphocytes Percent Auto 33.9 % (20-40); Mean Corpuscular Hemoglobin 29.2 pg (27.0-33.0); Mean Corpuscular Volume 91.1 fL (80.0-98.0); Mean Platelet Volume 11.5 fL (9.4-12.3); Monocytes Absolute Auto 0.6 X10*3/uL (0.1-1.2); Neutrophils Absolute Auto 2.4 x10*3/uL (2.0-8.3); Neutrophils Percent Auto 51.1 % (45-73); Platelet Count 178 X10*3/uL (160-400); Red Cell Distribution Width 12.3 % (11.0-16.0); White Blood Count 4.7 X10*3/uL (4.8-10.8)
[2021-12-03 03:59] LABS: COVID-19 Test Negative (Negative)
[2021-12-03 04:02] LABS: Alanine Aminotransferase 16 U/L (0-31); Albumin Level 4.5 g/dL (3.5-5.0); Alkaline Phosphatase 103 U/L (39-117); Anion Gap 16 (12-20); Aspartate Amino Transferase 19 U/L (5-31); Bilirubin Direct < 0.2 mg/dL (0.0-0.5); Bilirubin Total 0.2 mg/dL (0.0-1.0); Blood Urea Nitrogen 43 mg/dL (9-16); Calcium 9.8 mg/dL (8.4-10.2); Carbon Dioxide 20 mmol/L (22-29); Chloride 107 mmol/L (96-108); Estimated Glomerular Filt Rate 21; Glucose Random 144 mg/dL (60-115); Lipase 28 U/L (8-78); Magnesium 2.1 mg/dL (1.6-2.6); Potassium 5.5 mmol/L (3.3-5.1); Sodium 137 mmol/L (135-145); Total Protein 7.6 g/dL (6.5-8.0)
[2021-12-03 04:05] LABS: B Type Natriuretic Peptide 123 pg/mL (<100)
[2021-12-03 04:59] LABS: Appearance Urine Clear; Color Urine Yellow; Glucose Urine UA 500 mg/dL (Negative); Leukocyte Esterase Urine Negative (Negative); Nitrite Urine Negative (Negative); PH 7.5 (5.0-9.0); Urine Blood Negative (Negative); Urine Ketones Negative (Negative); Urine Protein Negative (Neg-Trace)
[2021-12-03] MEDS: Sodium Zirconium Cyclosilicate 5 GM POWD.PACK PO (05:13)
[2021-12-03] MEDS: Calcium Gluconate/NaCl,Iso-Osm 2 GM/100 ML PLAST..BAG IV (05:14)
[2021-12-03] MEDS: 0.9 % Sodium Chloride 1,000 ML 100 ML IVCONT ×2 (05:15→23:29)
--- NOTE | 2021-12-03 06:31 | PM.IMHP ---
History of Present Illness Date of Service: 12/03/21 Chief Complaint: Abdominal pain This is a 66-year-old female with pertinent history of insulin-dependent diabetes mellitus, essential hypertension, gastroesophageal reflux disease, status post renal transplant, asthma presents to the emergency department for evaluation of abdominal pain and was found to have MARIAM. Patient states she had been having increasing urinary frequency and was recently treated with Bactrim. Presents today for evaluation of left-sided abdominal pain which comes in waves, nonprogressive, nonradiating and without any relieving or aggravating factors. Patient denies fever, chills, chest discomfort, palpitations, changes in urinary habits. In the emergency department, CT abdomen/pelvis was without any acute abnormalities however she was found to have an acute kidney injury. Nephrology was consulted from the ER. Review of Systems Review of Systems: All 13 review of systems are negative except as noted in [facility] Medical History (Updated 12/03/21 @ 06:36 by Suhas Tovar MD) Asthma exacerbation Bronchitis Diabetes High cholesterol HTN (hypertension) Surgical History (Updated 12/03/21 @ 06:36 by Suhas Tovar MD) Kidney transplant recipient Social History Alcohol intake: never Patient Tobacco Use Status: Never used Tobacco Use of substances other than those prescribed or required for medical reasons: No Advance Directives: No Patient : No Meds Allergies Allergy/AdvReac Type Severity Reaction Status Date / Time Penicillins Allergy Mild RASH Verified 12/03/21 03:08 hydrocodone [From Vicodin] Allergy Stomach Verified 12/03/21 03:08 Upset Active Medications: Current Medications Acetaminophen (Acetaminophen 325 Mg Tablet) 650 mg PO Q6H PRN PRN Reason: Pain, Mild (Pain Scale 1-3) Dextrose (Dextrose 50 % 25 Gm/50 Ml Syringe) 25 gm IVPUSH Q15M PRN; Protocol PRN Reason: per Hypoglycemia Standing Ord. Enoxaparin Sodium (Enoxaparin Sodium 30 Mg/0.3 Ml Syringe) 30 mg SUBCUT Q24H HENRIQUE Glucose (Glucose Gel 15 Gm Gel..Gram.) 15 gm PO Q15M PRN; Protocol PRN Reason: per Hypoglycemia Standing Ord. Sodium Chloride (Ns) 1,000 mls @ 100 mls/hr IVCONT .Q10H HENRIQUE Last Admin: 12/03/21 05:15 Dose: 100 mls/hr Insulin Human Lispro (Insulin Lispro 100 Unit/Ml 3 Ml Vial) 0 unit SUBCUT QIDACHS REPLACED BY [facility]; Protocol Stop: 12/04/21 06:30 Melatonin (Melatonin 3 Mg Tablet) 6 mg PO BEDTIME PRN PRN Reason: Insomnia Ondansetron HCl (Ondansetron Hcl 4 Mg/2 Ml Vial) 4 mg IVPUSH Q8H PRN PRN Reason: Nausea and Vomiting Sodium Chloride (0.9 % Sodium Chloride Flush 3 Ml Syringe) 3 ml IVFLUSH QSHIFT REPLACED BY [facility] Home Medications Medication Instructions Recorded Confirmed Last Taken Type atorvastatin 40 mg tablet 1 tab PO BEDTIME 02/21/21 02/21/21 Unknown History calcifediol 30 mcg capsule,24 1 cap PO DAILY 02/21/21 02/21/21 Unknown History hr,extended release (Rayaldee) carvedilol 12.5 mg tablet 1 tab PO BID 02/21/21 02/21/21 Unknown History dorzolamide 22.3 mg-timolol 6.8 1 drp ophthalmic (eye) BID 02/21/21 02/21/21 Unknown History mg/mL eye drops gabapentin 100 mg capsule 100 - 300 mg PO TID PRN Pain 02/21/21 02/21/21 Unknown History insulin glargine 100 unit/mL (3 35 unit subcut BEDTIME 02/21/21 02/21/21 Unknown History mL) subcutaneous pen (Lantus Solostar U-100 Insulin) insulin lispro 100 unit/mL 16 unit subcut TID 02/21/21 02/21/21 Unknown History subcutaneous pen (Humalog KwikPen (U-100) Insulin) latanoprost 0.005 % eye drops 1 drp ophthalmic (eye) BEDTIME 02/21/21 02/21/21 Unknown History losartan 50 mg tablet 1 tab PO DAILY 02/21/21 02/21/21 Unknown History mycophenolate sodium 180 mg 2 tab PO BID 02/21/21 02/21/21 Unknown History tablet,delayed release oxycodone-acetaminophen 5 mg-325 1 tab PO QID PRN pain 02/21/21 02/21/21 Unknown History mg tablet pantoprazole 40 mg tablet,delayed 1 tab PO DAILY 02/21/21 02/21/21 Unknown History release tacrolimus 1 mg capsule, 3 cap PO BID 02/21/21 02/21/21 Unknown History immediate-release Physical Exam Vital Signs and Narrative: Vital Signs: Last Vital Signs Temp 98.3 F 12/03/21 04:51 Pulse 62 12/03/21 05:24 Resp 17 12/03/21 05:24 BP 180/65 H 12/03/21 05:24 Pulse Ox 100 12/03/21 05:24 O2 Del Method 12/03/21 05:24 BMI result Body Mass Index 35.9 Middle-aged female lying in bed in no distress Neck supple, no JVD Regular rate and rhythm, S1-S2 heard Regular breath sounds bilaterally, no wheezing or crackles appreciated Abdomen soft nontender, no guarding, no rigidity, no rebound tenderness, no CVA tenderness Patient is awake, alert and oriented to self, place, time and person ; no focal motor deficit Psych: Normal mood No pedal edema Results Labs CBC and Chem 7: 12/03/21 03:30 12/03/21 03:30 Labs: Laboratory Results - last 24 hr 12/03/21 12/03/21 12/03/21 03:25 03:30 03:30 MCV 91.1 MCH 29.2 MCHC 32.0 RDW 12.3 Plt Count 178 MPV 11.5 Immature Gran % (Auto) 0.2 Neut % (Auto) 51.1 Lymph % (Auto) 33.9 [place] % (Auto) 12.0 H Eos % (Auto) 2.4 Baso % (Auto) 0.4 Lymph # (Auto) 1.6 [place] # (Auto) 0.6 Eos # (Auto) 0.1 Baso # (Auto) 0.0 Abs Immat Gran (auto) 0.01 Absolute Neuts (auto) 2.4 Absolute Nucleated RBC 0.000 Nucleated RBC % (auto) 0.0 Anion Gap 16 Estim Creat Clear Calc 24.0 Estimated GFR 21 Random Glucose 144 H Calcium 9.8 Magnesium 2.1 Total Bilirubin 0.2 Direct Bilirubin < 0.2 AST 19 ALT 16 Alkaline Phosphatase 103 D Total Creatine Kinase 573 H B-Natriuretic Peptide Total Protein 7.6 Albumin 4.5 Lipase 28 Urine Color Urine Appearance Urine pH Ur Specific [place] Urine Protein Urine Glucose (UA) Urine Ketones Urine Blood Urine Nitrite Ur Leukocyte Esterase COVID-19 ([facility]IANO) Negative COVID-19 Clin Com See Note 12/03/21 12/03/21 03:30 04:53 MCV MCH MCHC RDW Plt Count MPV Immature Gran % (Auto) Neut % (Auto) Lymph % (Auto) [place] % (Auto) Eos % (Auto) Baso % (Auto) Lymph # (Auto) [place] # (Auto) Eos # (Auto) Baso # (Auto) Abs Immat Gran (auto) Absolute Neuts (auto) Absolute Nucleated RBC Nucleated RBC % (auto) Anion Gap Estim Creat Clear Calc Estimated GFR Random Glucose Calcium Magnesium Total Bilirubin Direct Bilirubin AST ALT Alkaline Phosphatase Total Creatine Kinase B-Natriuretic Peptide 123 H Total Protein Albumin Lipase Urine Color Yellow Urine Appearance Clear Urine pH 7.5 Ur Specific [place] 1.010 Urine Protein Negative Urine Glucose (UA) 500 H Urine Ketones Negative Urine Blood Negative Urine Nitrite Negative Ur Leukocyte Esterase Negative COVID-19 (VICTORIANO) COVID-19 Clin Com Imaging Radiologist's Impressions: Impressions Abdomen/Pelvis CT 12/03/21 04:05 IMPRESSION: No acute findings identified in the abdomen/pelvis. Moderate to large volume of stool. Transplant kidney in the right lower quadrant. Assessment and Plan (1) MARIAM (acute kidney injury): Status: Acute (2) Constipation: Qualifiers: Constipation type: unspecified constipation type Qualified Code(s): K59.00 - Constipation, unspecified Status: Acute (3) Abdominal pain: Qualifiers: Abdominal location: left lower quadrant Qualified Code(s): R10.32 - Left lower quadrant pain Status: Acute (4) Renal transplant recipient: Status: Acute (5) HTN (hypertension): Status: Acute (6) Diabetes: Status: Acute Plan This is a 66-year-old female with pertinent history of insulin-dependent diabetes mellitus, essential hypertension, gastroesophageal reflux disease, status post renal transplant, asthma presents to the emergency department for evaluation of abdominal pain and was found to have MARIAM. #. Acute kidney injury, nonoliguric in a patient with: #. Renal transplant -unclear etiology, does have recent Bactrim use. Obtaining urine sodium/urea and urine creatinine. Kidney without hydronephrosis on imaging. Patient received crystalloid in the ER. Nephrology was consulted from the ER, appreciate assistance. Avoid nephrotoxins -continue immunosuppressants. Tacrolimus levels pending #. Hyperkalemia due to acute kidney injury -received lokelma and calcium gluconate in the ER. #. Left-sided abdominal pain, intermittent -CT abdomen without acute findings however does show moderate to large amount of stool which may be ?contributing to discomfort. Initiate stool motility agents and osmotic laxative #. Elevated blood pressure in a patient with hypertension -hold losartan in the setting of MARIAM. Continue Coreg #. Insulin-dependent diabetes mellitus -reduce basal bolus regimen while in the hospital. #. Chronic normocytic anemia DVT prophylaxis: Lovenox 30 mg daily Diet: Diabetic diet Full code Patient will require two night minimum hospital stay for evaluation and management of acute kidney injury in a patient with renal transplant on immunosuppressive therapy. Quality Stroke Does the patient have a stroke diagnosis?: No VTE Prior VTE?: No VTE Risk Level:: Medical - moderate - high VTE Device Contraindication: Treatment Not Indicated VTE Drug Contraindication: N/A - Med Ordered
[2021-12-03 06:59] LABS: Creatinine Urine 34.01 mg/dL
[2021-12-03 07:05] LABS: Glucose, Whole Blood 132 mg/dL (60-115)
[2021-12-03 07:32] LABS: Estimated Average Glucose 126 mg/dL
[2021-12-03 07:46] LABS: Blood Urea Nitrogen 43 mg/dL (9-16); Calcium 10.4 mg/dL (8.4-10.2); Creatinine Clr Calc Pharmacy 26.8; Estimated Glomerular Filt Rate 24; Glucose Random 140 mg/dL (60-115)
[2021-12-03] MEDS: Acetaminophen 325 MG TABLET 650 MG PO ×2 (07:51→17:29)
--- NOTE | 2021-12-03 07:56 | PC.NURSE ---
PT AWAKENS EASILY TO VOICE, ADMITTED FOR INCREASED RENAL FUNCTION/PAIN. HAS BACK PAIN, STS CHRONIC BACK PAIN. GIVEN PRN TYLENOL W PENDING EFFECT, PT REQUESTING PRN OXYCODONE, HOSPITALIST AWARE.
[2021-12-03 08:17] LABS: Anion Gap 17 (12-20); Carbon Dioxide 18 mmol/L (22-29); Chloride 111 mmol/L (96-108); Potassium 6.2 mmol/L (3.3-5.1); Sodium 140 mmol/L (135-145)
--- NOTE | 2021-12-03 09:33 | PC.NURSE ---
CONTINUING TO AWAIT MEDICATION ORDERS TO BE VERIFIED BY PHARMACY, PHARMACIST DOWN IN ED TO COMPLETE MED REC W PT.
[2021-12-03] MEDS: Albuterol Sulfate 7.5 MG, Albuterol Sulfate (0.083%) 2.5 MG 10 MG INHALE (09:46)
[2021-12-03] MEDS: Lactulose 20 GM/30 ML SOLUTION PO (10:21)
[2021-12-03] MEDS: bisacodyL 10 MG SUPP.RECT PR (10:21)
[2021-12-03] MEDS: Dextrose 50 % 25 GM/50 ML SYRINGE IVPUSH (10:21)
[2021-12-03] MEDS: Insulin Regular, Human 100 UNIT/ML 3 ML VIAL 10 UNIT IVPUSH (10:21)
[2021-12-03] MEDS: hydrALAZINE HCl 20 MG/ML VIAL 10 MG IVPUSH (10:23)
[2021-12-03] MEDS: Calcium Gluconate/NaCl,Iso-Osm 1 GM/50 ML PLAST..BAG IV (10:41)
[2021-12-03] MEDS: oxyCODONE HCl Immed Release 5 MG TABLET PO ×2 (10:41→21:35)
--- NOTE | 2021-12-03 10:43 | PC.NURSE ---
PT MEDICATED PER EMAR, PT STILL HAS UNVERIFIED MEDICATION ORDERS. PHARMACY AWARE. PT GIVEN MEDICATIONS FOR POTASSIUM SHIFT WELL MEDICATION FOR PAIN. TOLERATING PO.
--- NOTE | 2021-12-03 11:01 | PM.PNNEP ---
Subjective Subjective Date of Service: 12/03/21 Interval history: seen and examined Physical Exam Vital Signs: Vital Signs: Last Vital Signs Temp 98.3 F 12/03/21 04:51 Pulse 63 12/03/21 09:47 Resp 16 12/03/21 09:47 BP 167/59 H 12/03/21 06:46 Pulse Ox 100 12/03/21 06:46 O2 Del Method 12/03/21 06:46 BMI result Body Mass Index 35.9 Objective Data Labs CBC & Chem 7: 12/03/21 03:30 12/03/21 07:08 Labs: Laboratory Results - last 24 hr 12/03/21 12/03/21 12/03/21 03:25 03:30 03:30 WBC 4.7 L RBC 3.60 L Hgb 10.5 L Hct 32.8 L MCV 91.1 MCH 29.2 MCHC 32.0 RDW 12.3 Plt Count 178 MPV 11.5 Immature Gran % (Auto) 0.2 Neut % (Auto) 51.1 Lymph % (Auto) 33.9 [place] % (Auto) 12.0 H Eos % (Auto) 2.4 Baso % (Auto) 0.4 Lymph # (Auto) 1.6 [place] # (Auto) 0.6 Eos # (Auto) 0.1 Baso # (Auto) 0.0 Abs Immat Gran (auto) 0.01 Absolute Neuts (auto) 2.4 Absolute Nucleated RBC 0.000 Nucleated RBC % (auto) 0.0 Sodium 137 Potassium 5.5 H Chloride 107 Carbon Dioxide 20 L Anion Gap 16 BUN 43 H D Creatinine 2.36 H Estim Creat Clear Calc 24.0 Estimated GFR 21 POC Glucose Random Glucose 144 H Estimat Average Glucose Hemoglobin A1c % Calcium 9.8 Magnesium 2.1 Total Bilirubin 0.2 Direct Bilirubin < 0.2 AST 19 ALT 16 Alkaline Phosphatase 103 D Total Creatine Kinase 573 H B-Natriuretic Peptide Total Protein 7.6 Albumin 4.5 Lipase 28 Urine Color Urine Appearance Urine pH Ur Specific [place] Urine Protein Urine Glucose (UA) Urine Ketones Urine Blood Urine Nitrite Ur Leukocyte Esterase Ur Random Sodium Urine Creatinine COVID-19 ([facility]) Negative COVID-19 Clin Com See Note 12/03/21 12/03/21 12/03/21 03:30 04:53 04:53 WBC RBC Hgb Hct MCV MCH MCHC RDW Plt Count MPV Immature Gran % (Auto) Neut % (Auto) Lymph % (Auto) [place] % (Auto) Eos % (Auto) Baso % (Auto) Lymph # (Auto) [place] # (Auto) Eos # (Auto) Baso # (Auto) Abs Immat Gran (auto) Absolute Neuts (auto) Absolute Nucleated RBC Nucleated RBC % (auto) Sodium Potassium Chloride Carbon Dioxide Anion Gap BUN Creatinine Estim Creat Clear Calc Estimated GFR POC Glucose Random Glucose Estimat Average Glucose Hemoglobin A1c % Calcium Magnesium Total Bilirubin Direct Bilirubin AST ALT Alkaline Phosphatase Total Creatine Kinase B-Natriuretic Peptide 123 H Total Protein Albumin Lipase Urine Color Yellow Urine Appearance Clear Urine pH 7.5 Ur Specific [place] 1.010 Urine Protein Negative Urine Glucose (UA) 500 H Urine Ketones Negative Urine Blood Negative Urine Nitrite Negative Ur Leukocyte Esterase Negative Ur Random Sodium 64.0 Urine Creatinine 34.01 COVID-19 ([facility]) COVIDWhitevector 12/03/21 12/03/21 12/03/21 06:45 07:08 07:08 WBC RBC Hgb Hct MCV MCH MCHC RDW Plt Count MPV Immature Gran % (Auto) Neut % (Auto) Lymph % (Auto) [place] % (Auto) Eos % (Auto) Baso % (Auto) Lymph # (Auto) [place] # (Auto) Eos # (Auto) Baso # (Auto) Abs Immat Gran (auto) Absolute Neuts (auto) Absolute Nucleated RBC Nucleated RBC % (auto) Sodium 140 Potassium 6.2 H* Chloride 111 H Carbon Dioxide 18 L Anion Gap 17 BUN 43 H Creatinine 2.11 H Estim Creat Clear Calc 26.8 Estimated GFR 24 POC Glucose 132 H Random Glucose 140 H Estimat Average Glucose 126 Hemoglobin A1c % 6.0 Calcium 10.4 H D Magnesium Total Bilirubin Direct Bilirubin AST ALT Alkaline Phosphatase Total Creatine Kinase B-Natriuretic Peptide Total Protein Albumin Lipase Urine Color Urine Appearance Urine pH Ur Specific [place] Urine Protein Urine Glucose (UA) Urine Ketones Urine Blood Urine Nitrite Ur Leukocyte Esterase Ur Random Sodium Urine Creatinine COVID-19 ([facility]) COVID-19 [facility] Procedures Date of Service Date of Service: 12/03/21 Assessment & Plan Assessment and plan (1) MARIAM (acute kidney injury): Status: Acute (2) Hyperkalemia: Status: Acute (3) Renal transplant recipient: Status: Acute (4) CKD (chronic kidney disease): Status: Acute Plan MARIAM due to renal hypoperfusion and Bactrim effect other less likely CT scan abdomen negative for obstruction elevated potassium due to MARIAM and Bactrim h/o LUKT known CKD baseline Scr 1.6 mg/dl REC IVF sodium zirconium 10 g bid avoid Bactrim continue mycophenolate 360 mg bid continue tacrolimus 3 mg bid follow tacrolimus level follow OMNIGRAF at office follow kidney function and electrolytes Time Spent With Patient Time: Total time spent is greater than 50% in coordination of care (as documented) at patient's floor/unit and/or counseling patient: Progress Note: Quality Stroke Does the patient have a stroke diagnosis?: No
[2021-12-03 11:39] LABS: Glucose, Whole Blood 159 mg/dL (60-115)
--- NOTE | 2021-12-03 12:43 | PHA.MEDREC ---
Pharmacy Consult ? Medication Reconciliation Pharmacy has completed the medication reconciliation. Patient does not take losartan (reports dizziness and headaches when taking). Patient admits that they take omega 3, however they cannot remember the name for it
--- NOTE | 2021-12-03 13:00 | PHA.MEDREC ---
med rec complete, no issues Pharmacy Consult ? Medication Reconciliation Pharmacy has completed the medication reconciliation.
--- NOTE | 2021-12-03 13:02 | PM.EVENT ---
Event Note Date of Service: 12/03/21 Event Note: day hospitalist update S abd pain improved O Temp Pulse Resp BP Pulse Ox O2 Del Method 98.3 F 63 16 167/59 H 100 12/03/21 04:51 12/03/21 09:47 12/03/21 09:47 12/03/21 06:46 12/03/21 06:46 12/03/21 06:46 gen- NAD lungs- CTAB CV- RRR no m/r/g abd- soft, obese, NT ext- no edema neuro- nonfocal labs: K 5.5->6.2, SCr 2.36->2.11, FENa 3.2% CT A/P: No acute findings identified in the abdomen/pelvis. Moderate to large volume of stool. Transplant kidney in the right lower quadrant.? A/P d#1 66yo F s/p renal transplant with DM2, HTN presenting with abd pain and found to have MARIAM + hyperK # hyperK - Ca gluconate x1g, insulin/D50, albuterol 10 mg, SZC 10 mg bid, recheck BMP at 13:00 today - due to MARIAM + TMP/SMX # MARIAM - due to TMP/SMX + hypoperfusion, Nephrology consulted, continue IV fluids, avoid nephrotoxins, d/c TMP/SMX, hold losartan, repeat BMP in AM # renal transplant - continue MMF + tacrolimus [level pending] # LLQ pain - suspected constipation- will give MiraLax # HTN - hold losartan, continue carvedilol # DM2 - basal/bolus insulin # VTE ppx: LMWH In my clinical judgment, the patient requires continued hospitalization for the following reasons: MARIAM, hyperK
[2021-12-03 13:59] LABS: Anion Gap 16 (12-20); Blood Urea Nitrogen 41 mg/dL (9-16); Calcium 10.8 mg/dL (8.4-10.2); Carbon Dioxide 20 mmol/L (22-29); Chloride 109 mmol/L (96-108); Creatinine Clr Calc Pharmacy 28.7; Estimated Glomerular Filt Rate 26; Glucose Random 169 mg/dL (60-115); Potassium 5.7 mmol/L (3.3-5.1); Sodium 139 mmol/L (135-145)
[2021-12-03] MEDS: Sodium Zirconium Cyclosilicate 10 GM POWD.PACK PO ×2 (14:01→21:22)
[2021-12-03] MEDS: Insulin Lispro 100 UNIT/ML 3 ML VIAL SUBCUT ×3 (14:01→21:24)
[2021-12-03] MEDS: Insulin Lispro 100 UNIT/ML 3 ML VIAL 10 UNIT SUBCUT ×3 (14:01→21:23)
[2021-12-03] MEDS: Tacrolimus 1 MG CAPSULE 3 MG PO ×2 (14:45→21:21)
[2021-12-03] MEDS: Brimonidine Tartrate 0.2% Oph 5 ML BOTTLE 1 DROP EYE-RIGHT ×2 (14:47→21:19)
[2021-12-03 17:18] LABS: Glucose, Whole Blood 180 mg/dL (60-115)
[2021-12-03 19:08] LABS: Creatinine Urine 28.36 mg/dL
[2021-12-03 20:10] LABS: Glucose, Whole Blood 160 mg/dL (60-115)
[2021-12-03] MEDS: Dorzolamide/Timolo 2.23%/0.68% 10 ML DRBTL 1 DROP EYE-BOTH (21:20)
[2021-12-03] MEDS: Pregabalin 150 MG CAPSULE PO (21:21)
[2021-12-03] MEDS: Mycophenolate Sodium 180 MG TABLET.DR 360 MG PO (21:21)
[2021-12-03] MEDS: carvediloL 25 MG TABLET PO (21:21)
[2021-12-03] MEDS: Insulin Glargine,Hum.rec.anlog 100 UNIT/ML 10 ML VIAL 25 UNIT SUBCUT (21:23)
[2021-12-03] MEDS: 0.9 % Sodium Chloride Flush 3 ML SYRINGE IVFLUSH (21:24)
[2021-12-03] MEDS: Latanoprost 0.005 % Ophth Sol 2.5 ML DROPS 1 DROP EYE-BOTH (22:31)
[2021-12-03] MEDS: diphenhydrAMINE HCL 25 MG TABLET 12.5 MG PO (22:31)
[2021-12-04 03:12] VITALS: BP 127/62; PULSE 60; RESP 16; TEMP 36; O2SAT 98
--- NOTE | 2021-12-04 03:36 | CONS_ITS ---
DATE OF SERVICE: HISTORY OF PRESENT ILLNESS: This is a 66-year-old patient with a history of living unrelated kidney transplant, who presented to the hospital with abdominal pain, noted to have elevated serum creatinine above her baseline. The patient presented with abdominal pain, stating also that she has been having an increasing urinary frequency. The patient was treated apparently with Bactrim as well. She denies any chest pain or shortness of breath. There is no report of fever or chills. No vomiting or diarrhea, although she has been complaining of nausea. She had a CT scan of the abdomen, which showed no acute abnormality, although she had moderate to large amount of stools. PAST MEDICAL HISTORY: Remarkable for chronic kidney disease, diabetes mellitus, hypertension, asthma, bronchitis, GERD. PAST SURGICAL HISTORY: Notable for kidney transplant. MEDICATIONS: As an outpatient reviewed and included tacrolimus 3 mg twice a day, mycophenolate 180 mg 2 tablets twice a day, losartan 50 mg daily, pantoprazole, insulin, gabapentin, carvedilol, atorvastatin. ALLERGIES: SHE IS ALLERGIC TO HYDROCODONE. SOCIAL HISTORY: Does not smoke. FAMILY HISTORY: Negative for kidney disease. REVIEW OF SYSTEMS: 10-point review of systems negative except pertinent in the History Of Present Illness. PHYSICAL EXAMINATION: VITAL SIGNS: Blood pressure is 167/59, heart rate 61, respiratory rate 14, and temperature 98.3. CONSTITUTIONAL: Looks her stated age, in no acute distress. NEUROLOGIC: Alert and awake. HEENT: Head is atraumatic and normocephalic. NECK: Supple. LUNGS: Good air entry bilaterally. CARDIOVASCULAR: S1 and S2. No rub. ABDOMEN: Soft, obese, and nontender. EXTREMITIES: No peripheral edema. LABORATORY DATA: Showed white count 4.7, hemoglobin 10.5, platelet count is 178. Sodium 140, potassium 6.2, chloride 111, CO2 of 18, BUN 43, creatinine 2.11, and calcium 10.4. Tacrolimus level is pending. Urinalysis, negative leukocyte esterase. Urine sodium of 54. IMPRESSION: 1. Acute kidney injury. 2. Hyperkalemia. 3. History of kidney transplant. 4. Chronic kidney disease. This patient's acute kidney injury is most likely due to renal hypoperfusion and also due to recent administration of Bactrim which can block tubular secretion of creatinine resulting in worsening kidney function. Other causes are less likely but will still need to be ruled out. She has a history of living unrelated kidney transplant and recently had OmniGraf test. The serum potassium is elevated due to Bactrim effect. She has underlying chronic kidney disease with baseline serum creatinine ratio of 1.6 mg/dL. RECOMMENDATIONS: 1. Urine sodium. 2. Tacrolimus level. 3. Continue tacrolimus 3 mg twice a day. 4. Continue mycophenolate 360 mg twice a day. 5. Avoid Bactrim. 6. Sodium zirconium 10 g. 7. IV fluid. 8. Follow OmniGraf test. 9. Follow kidney function. Thank you for allowing me to participate in the care of the patient. Leonie Jansen MD GF/MODL / [phone]
[2021-12-04] MEDS: diphenhydrAMINE HCL 25 MG CAPSULE 50 MG PO (03:37)
[2021-12-04 07:07] LABS: Anion Gap 15 (12-20); Blood Urea Nitrogen 39 mg/dL (9-16); Calcium 9.5 mg/dL (8.4-10.2); Carbon Dioxide 18 mmol/L (22-29); Chloride 111 mmol/L (96-108); Creatinine Clr Calc Pharmacy 35.2; Estimated Glomerular Filt Rate 32; Glucose Random 109 mg/dL (60-115); Sodium 139 mmol/L (135-145)
[2021-12-04 07:30] LABS: EOS Counted 0 CELLS; EOS QC POS YES; EOS Stain Quality OK YES; WBC, Counted 0 CELLS
[2021-12-04 07:36] LABS: Glucose, Whole Blood 93 mg/dL (60-115)
[2021-12-04 07:42] VITALS: BP 170/74; PULSE 59; RESP 17; TEMP 36.3; O2SAT 97
[2021-12-04 08:05] VITALS: PULSE 63
[2021-12-04] MEDS: 0.9 % Sodium Chloride 1,000 ML 100 ML IVCONT ×2 (08:11→20:15)
[2021-12-04] MEDS: Sodium Zirconium Cyclosilicate 10 GM POWD.PACK PO ×2 (08:12→20:17)
[2021-12-04] MEDS: Aspirin Enteric Coated 81 MG TABLET.DR PO (08:12)
[2021-12-04] MEDS: carvediloL 25 MG TABLET PO ×2 (08:12→20:16)
[2021-12-04] MEDS: Tacrolimus 1 MG CAPSULE 3 MG PO ×2 (08:12→20:16)
[2021-12-04] MEDS: Mycophenolate Sodium 180 MG TABLET.DR 360 MG PO ×2 (08:12→20:16)
[2021-12-04] MEDS: Famotidine 20 MG TABLET PO (08:12)
[2021-12-04] MEDS: Pregabalin 150 MG CAPSULE PO ×2 (08:12→20:16)
[2021-12-04] MEDS: Brimonidine Tartrate 0.2% Oph 5 ML BOTTLE 1 DROP EYE-RIGHT ×3 (08:16→20:15)
[2021-12-04] MEDS: Dorzolamide/Timolo 2.23%/0.68% 10 ML DRBTL 1 DROP EYE-BOTH ×2 (08:16→20:15)
--- NOTE | 2021-12-04 09:39 | MHC.CM.PN ---
Meet with patient for CM assessment. Lives @ home, has [facility] services 2.5 hours daily. PCP Verified. Vax'd w/ Moderna & 1 booster. Has transportation @ D/C from family. Open to VNA as appropriate. D/C plan- home w/ resumption of [employer].
--- NOTE | 2021-12-04 10:08 | HO.PM.IMPN ---
Subjective Subjective Date of Service: 12/04/21 Interval History: This history was taken in [place] from the patient. c/o itching/no rash abd pain resolved no N/V Review of Systems Review of Systems: Yes all other systems are reviewed and are negative Physical Exam Vital Signs: Vital Signs: Last Vital Signs Temp 97.4 F 12/04/21 07:42 Pulse 63 12/04/21 08:05 Resp 17 12/04/21 07:42 BP 170/74 H 12/04/21 07:42 Pulse Ox 97 12/04/21 07:42 O2 Del Method 12/04/21 07:42 BMI result Body Mass Index 35.9 Gen: in no acute distress HEENT: sclera anicteric, moist mucus membranes Neck: supple Lungs: clear to auscultation bilaterally Heart: regular rate and rhythm, no murmurs Abd: soft, non-tender, non-distended, obese Ext: no edema Skin: warm/well-perfused Neuro: alert and oriented x3, no focal findings Psych: appropriate affect Objective Data Active Medications Acetaminophen (Acetaminophen 325 Mg Tablet) 650 mg PO Q6H PRN PRN Reason: Pain, Mild (Pain Scale 1-3) Last Admin: 12/03/21 17:29 Dose: 650 mg Documented By: JENNIFER Albuterol Sulfate (Albuterol Sulfate 90 Mcg 8 Gm Inhaler) 2 puff INHALE Q4H PRN PRN Reason: shortness of breath or wheezing Aspirin (Aspirin Enteric Coated 81 Mg Tablet.Dr) 81 mg PO DAILY [facility] Last Admin: 12/04/21 08:12 Dose: 81 mg Documented By: KAROLINE Brimonidine Tartrate (Brimonidine Tartrate 0.2% Oph 5 Ml Bottle) 1 drop EYE-RIGHT TID [facility] Last Admin: 12/04/21 08:16 Dose: 1 drop Documented By: KAROLINE Carvedilol (Carvedilol 25 Mg Tablet) 25 mg PO BID [facility]; Protocol Last Admin: 12/04/21 08:12 Dose: 25 mg Documented By: KAROLINE Dextrose (Dextrose 50 % 25 Gm/50 Ml Syringe) 25 gm IVPUSH Q15M PRN; Protocol PRN Reason: per Hypoglycemia Standing Ord. Dorzolamide/Timolol (Dorzolamide/Timolo 2.23%/0.68% 10 Ml Drbtl) 1 drop EYE-BOTH BID [facility] Last Admin: 12/04/21 08:16 Dose: 1 drop Documented By: KAROLINE Enoxaparin Sodium (Enoxaparin Sodium 30 Mg/0.3 Ml Syringe) 30 mg SUBCUT Q24H [facility] Last Admin: 12/04/21 08:16 Dose: Not Given Documented By: KAROLINE Non-Admin Reason: Patient Refused Famotidine (Famotidine 20 Mg Tablet) 20 mg PO DAILY [facility] Last Admin: 12/04/21 08:12 Dose: 20 mg Documented By: KAROLINE Glucose (Glucose Gel 15 Gm Gel..Gram.) 15 gm PO Q15M PRN; Protocol PRN Reason: per Hypoglycemia Standing Ord. Sodium Chloride (Ns) 1,000 mls @ 100 mls/hr IVCONT .Q10H [facility] Last Admin: 12/04/21 09:28 Dose: Not Given Documented By: KAROLINE Non-Admin Reason: IV Running Insulin Glargine (Insulin Glargine,Hum.Rec.Anlog 100 Unit/Ml 10 Ml Vial) 25 unit SUBCUT BEDTIME [facility] Last Admin: 12/03/21 21:23 Dose: 25 unit Documented By: MARGARETH Insulin Human Lispro (Insulin Lispro 100 Unit/Ml 3 Ml Vial) 0 unit SUBCUT QIDACHS [facility]; Protocol Latanoprost (Latanoprost 0.005 % Ophth [place] 2.5 Ml Drops) 1 drop EYE-BOTH BEDTIME [facility] Last Admin: 12/03/21 22:31 Dose: 1 drop Documented By: MARGARETH Melatonin (Melatonin 3 Mg Tablet) 6 mg PO BEDTIME PRN PRN Reason: Insomnia Mycophenolate Sodium (Mycophenolate Sodium 180 Mg Tablet.Dr) 360 mg PO BID [facility] Last Admin: 12/04/21 08:12 Dose: 360 mg Documented By: KAROLINE Ondansetron HCl (Ondansetron Hcl 4 Mg/2 Ml Vial) 4 mg IVPUSH Q8H PRN PRN Reason: Nausea and Vomiting Oxycodone HCl (Oxycodone Hcl Immed Release 5 Mg Tablet) 5 mg PO Q6H PRN PRN Reason: severe pain Last Admin: 12/03/21 21:35 Dose: 5 mg Documented By: MARGARETH Polyethylene Glycol (Polyethylene Glycol 3350 17 Gm Powd.Pack) 17 gm PO DAILY [facility] Last Admin: 12/04/21 08:17 Dose: Not Given Documented By: KAROLINE Non-Admin Reason: Patient Refused Pregabalin (Pregabalin 150 Mg Capsule) 150 mg PO BID [facility] Last Admin: 12/04/21 08:12 Dose: 150 mg Documented By: KAROLINE Sodium Chloride (0.9 % Sodium Chloride Flush 3 Ml Syringe) 3 ml IVFLUSH QSHIFT [facility] Last Admin: 12/04/21 08:07 Dose: Not Given Documented By: KAROLINE Non-Admin Reason: IV Running Sodium Zirconium Cyclosilicate (Sodium Zirconium Cyclosilicate 10 Gm Powd.Pack) 10 gm PO BID [facility] Stop: 12/05/21 21:01 Last Admin: 12/04/21 08:12 Dose: 10 gm Documented By: KAROLINE Tacrolimus (Tacrolimus 1 Mg Capsule) 3 mg PO BEDTIME [facility] Last Admin: 12/03/21 21:21 Dose: 3 mg Documented By: MARGARETH Tacrolimus (Tacrolimus 1 Mg Capsule) 3 mg PO DAILY [facility] Last Admin: 12/04/21 08:12 Dose: 3 mg Documented By: KAROLINE Labs CBC & Chem 7: 12/03/21 03:30 12/04/21 06:01 Labs: Laboratory Results - last 24 hr 12/03/21 12/03/21 12/03/21 11:33 13:32 17:10 Anion Gap 16 Estim Creat Clear Calc 28.7 Estimated GFR 26 POC Glucose 159 H 180 H Random Glucose 169 H Calcium 10.8 H Urine Eosinophils % Ur Random Sodium Urine Creatinine 12/03/21 12/03/21 12/03/21 18:10 18:10 20:05 Anion Gap Estim Creat Clear Calc Estimated GFR POC Glucose 160 H Random Glucose Calcium Urine Eosinophils % 0.0 Ur Random Sodium 94.0 Urine Creatinine 28.36 12/04/21 12/04/21 06:01 07:20 Anion Gap 15 Estim Creat Clear Calc 35.2 Estimated GFR 32 POC Glucose 93 Random Glucose 109 Calcium 9.5 D Urine Eosinophils % Ur Random Sodium Urine Creatinine Assessment and Plan (1) MARIAM (acute kidney injury): Status: Acute (2) CKD (chronic kidney disease): Status: Acute (3) Hyperkalemia: Status: Acute Plan d#2 66yo F s/p renal transplant with DM2, HTN presenting with abd pain and found to have MARIAM + hyperK after recent course of SMX/TMP # hyperK - resolved s/p Ca gluconate x1g, insulin/D50, albuterol 10 mg, on SZC 10 mg bid, recheck BMP tomorrow - due to MARIAM + TMP/SMX # MARIAM - due to TMP/SMX + hypoperfusion; FENa 3.4%;; Nephrology consulted, continue IV fluids, avoid nephrotoxins, d/c'edTMP/SMX, held losartan, repeat BMP in AM # renal transplant - continue MMF + tacrolimus [level pending] #? LLQ pain - likely constipation; continue MiraLax # HTN - hold losartan, continue carvedilol # DM2 - basal/bolus insulin # VTE ppx: LMWH In my clinical judgment, the patient requires continued hospitalization for the following reasons: MARIAM requiring IV fluids + monitoring Quality Stroke Does the patient have a stroke diagnosis?: No VTE Prior VTE?: No VTE Risk Level:: Medical - moderate - high VTE Device Contraindication: Treatment Not Indicated VTE Drug Contraindication: N/A - Med Ordered
[2021-12-04] MEDS: diphenhydrAMINE HCL 25 MG CAPSULE PO ×2 (10:29→20:16)
[2021-12-04 11:27] VITALS: BP 150/65; PULSE 58; RESP 17; TEMP 36.1; O2SAT 98
[2021-12-04 11:28] LABS: Glucose, Whole Blood 265 mg/dL (60-115)
[2021-12-04] MEDS: oxyCODONE HCl Immed Release 5 MG TABLET PO ×2 (12:01→20:16)
[2021-12-04] MEDS: Insulin Lispro 100 UNIT/ML 3 ML VIAL SUBCUT ×2 (12:01→16:33)
--- NOTE | 2021-12-04 14:27 | P.CDIC_ITS ---
CDI Concurrent Query Documentation Clarification: PHYSICIAN'S DOCUMENTATION REQUEST Date of Query: 12/04/21 1428 Patient Name: Marjorie Hensley Admit Date: 12/03/21 Dear Doctor, A review of the medical record indicates additional documentation may be needed. Please review below and update the documentation accordingly. Clinical Indicators: Is there a diagnosis that correlates with the findings below: Risk Factors/Clinical Indicators/Treatments -Nephrology note on 12/03: known CKD baseline Scr 1.6 mg/dl -LABS: GFR on admission 12/03: 21 GFR on 12/04: 32 Creatinine on admission 12/03: 2.36 Creatinine on 12/04: 1.61 Please clarify which of the following accurately represents the patient's renal status: * CKD, please provide stage - see criteria * Other (please specify) * Unable to determine Stages of Chronic Kidney Disease* Level Description GFR G1 Normal or High > 90 G2 Mildly decreased 60 ? 89 G3a Mildly to moderately decreased 45 ? 59 G3b Moderately to severely decreased 30 - 44 G4 Severely decreased 15 ? 29 G5 Kidney failure < 15 *Source: Kidney Disease: Improving Global Outcomes (KDIGO) 2012 Use of terms such as suspected, likely, concern for, or probable (associated with a specific diagnosis that is being evaluated, monitored, or treated as if it exists) are acceptable and can be coded in the inpatient setting, when documented at the time of discharge. Thank you, Kia Wilson MS, RN, CCRN Extension: [phone] Please use your independent medical judgment in providing your response. THIS QUERY IS PART OF THE PERMANENT MEDICAL RECORD Provider Response: Other Other Diagnosis: [id number]
[2021-12-04 14:43] LABS: Tacrolimus Prograf 8.5 mcg/L
[2021-12-04 15:21] VITALS: BP 160/82; PULSE 56; RESP 18; TEMP 37; O2SAT 95
[2021-12-04 16:17] LABS: Glucose, Whole Blood 164 mg/dL (60-115)
[2021-12-04 20:00] VITALS: BP 156/67; PULSE 62; RESP 17; TEMP 36; O2SAT 98
[2021-12-04 20:13] LABS: Glucose, Whole Blood 142 mg/dL (60-115)
[2021-12-04] MEDS: Latanoprost 0.005 % Ophth Sol 2.5 ML DROPS 1 DROP EYE-BOTH (20:15)
[2021-12-04] MEDS: Insulin Glargine,Hum.rec.anlog 100 UNIT/ML 10 ML VIAL 25 UNIT SUBCUT (20:17)
[2021-12-05] VITALS (7 sets, daily range): BP systolic 124–180; BP diastolic 60–78; PULSE 58–65; RESP 16–20; TEMP 36–36.5; O2SAT 97–100
[2021-12-05] MEDS: diphenhydrAMINE HCL 25 MG CAPSULE PO ×4 (00:43→23:47)
[2021-12-05 06:49] LABS: Anion Gap 16 (12-20); Blood Urea Nitrogen 38 mg/dL (9-16); Calcium 9.2 mg/dL (8.4-10.2); Carbon Dioxide 17 mmol/L (22-29); Chloride 111 mmol/L (96-108); Creatinine Clr Calc Pharmacy 38.8; Estimated Glomerular Filt Rate 36; Glucose Random 158 mg/dL (60-115); Potassium 4.9 mmol/L (3.3-5.1); Sodium 139 mmol/L (135-145)
[2021-12-05 07:41] LABS: Glucose, Whole Blood 146 mg/dL (60-115)
[2021-12-05] MEDS: Mycophenolate Sodium 180 MG TABLET.DR 360 MG PO ×2 (07:52→21:32)
[2021-12-05] MEDS: polyethylene glycoL 3350 17 GM POWD.PACK PO (07:52)
[2021-12-05] MEDS: Tacrolimus 1 MG CAPSULE 3 MG PO ×2 (07:52→21:34)
[2021-12-05] MEDS: 0.9 % Sodium Chloride Flush 3 ML SYRINGE IVFLUSH ×2 (07:52→21:35)
[2021-12-05] MEDS: Pregabalin 150 MG CAPSULE PO ×2 (07:52→21:33)
[2021-12-05] MEDS: Sodium Zirconium Cyclosilicate 10 GM POWD.PACK PO ×2 (07:52→21:34)
[2021-12-05] MEDS: carvediloL 25 MG TABLET PO ×2 (07:53→21:33)
[2021-12-05] MEDS: Aspirin Enteric Coated 81 MG TABLET.DR PO (07:53)
[2021-12-05] MEDS: Famotidine 20 MG TABLET PO (07:54)
[2021-12-05] MEDS: Brimonidine Tartrate 0.2% Oph 5 ML BOTTLE 1 DROP EYE-RIGHT ×3 (07:54→21:36)
[2021-12-05] MEDS: Dorzolamide/Timolo 2.23%/0.68% 10 ML DRBTL 1 DROP EYE-BOTH ×2 (07:54→21:36)
[2021-12-05] MEDS: 0.9 % Sodium Chloride 1,000 ML 125 ML IVCONT ×2 (08:02→15:45)
--- NOTE | 2021-12-05 11:16 | P.PNIM_ITS ---
Subjective Subjective Date of Service: 12/05/21 Interval History: no abd pain no N/V SCr improving Review of Systems Review of Systems: Yes all other systems are reviewed and are negative Physical Exam Vital Signs: Vital Signs: Last Vital Signs Temp 96.8 F 12/05/21 07:28 Pulse 60 12/05/21 07:28 Resp 20 12/05/21 07:28 BP 155/60 H 12/05/21 07:42 Pulse Ox 99 12/05/21 07:28 O2 Del Method 12/05/21 07:28 BMI result Body Mass Index 35.9 Gen: in no acute distress HEENT: sclera anicteric, moist mucus membranes Neck: supple Lungs: clear to auscultation bilaterally Heart: regular rate and rhythm, no murmurs Abd: soft, non-tender, non-distended, obese Ext: no edema Skin: warm/well-perfused Neuro: alert and oriented x3, no focal findings Psych: appropriate affect Objective Data Active Medications Acetaminophen (Acetaminophen 325 Mg Tablet) 650 mg PO Q6H PRN PRN Reason: Pain, Mild (Pain Scale 1-3) Last Admin: 12/03/21 17:29 Dose: 650 mg Documented By: JENNIFER Albuterol Sulfate (Albuterol Sulfate 90 Mcg 8 Gm Inhaler) 2 puff INHALE Q4H PRN PRN Reason: shortness of breath or wheezing Aspirin (Aspirin Enteric Coated 81 Mg Tablet.Dr) 81 mg PO DAILY [facility] Last Admin: 12/05/21 07:53 Dose: 81 mg Documented By: KAROLINE Brimonidine Tartrate (Brimonidine Tartrate 0.2% Oph 5 Ml Bottle) 1 drop EYE- RIGHT TID [facility] Last Admin: 12/05/21 07:54 Dose: 1 drop Documented By: KAROLINE Carvedilol (Carvedilol 25 Mg Tablet) 25 mg PO BID [facility]; Protocol Last Admin: 12/05/21 07:53 Dose: 25 mg Documented By: KAROLINE Dextrose (Dextrose 50 % 25 Gm/50 Ml Syringe) 25 gm IVPUSH Q15M PRN; Protocol PRN Reason: per Hypoglycemia Standing Ord. Diphenhydramine HCl (Diphenhydramine Hcl 25 Mg Capsule) 25 mg PO Q4H PRN PRN Reason: itching Last Admin: 12/05/21 00:43 Dose: 25 mg Documented By: MARGARETH Dorzolamide/Timolol (Dorzolamide/Timolo 2.23%/0.68% 10 Ml Drbtl) 1 drop EYE- BOTH BID [facility] Last Admin: 12/05/21 07:54 Dose: 1 drop Documented By: KAROLINE Enoxaparin Sodium (Enoxaparin Sodium 30 Mg/0.3 Ml Syringe) 30 mg SUBCUT Q24H [facility] Last Admin: 12/05/21 07:45 Dose: Not Given Documented By: KAROLINE Non-Admin Reason: Patient Refused Famotidine (Famotidine 20 Mg Tablet) 20 mg PO DAILY [facility] Last Admin: 12/05/21 07:54 Dose: 20 mg Documented By: KAROLINE Glucose (Glucose Gel 15 Gm Gel..Gram.) 15 gm PO Q15M PRN; Protocol PRN Reason: per Hypoglycemia Standing Ord. Sodium Chloride (Ns) 1,000 mls @ 125 mls/hr IVCONT .Q8H [facility] Stop: 12/05/21 23:59 Last Admin: 12/05/21 08:02 Dose: 125 mls/hr Documented By: KAROLINE Insulin Glargine (Insulin Glargine,Hum.Rec.Anlog 100 Unit/Ml 10 Ml Vial) 25 unit SUBCUT BEDTIME [facility] Last Admin: 12/04/21 20:17 Dose: 25 unit Documented By: MARGARETH Insulin Human Lispro (Insulin Lispro 100 Unit/Ml 3 Ml Vial) 0 unit SUBCUT QIDACHS [facility]; Protocol Last Admin: 12/05/21 07:44 Dose: Not Given Documented By: KAROLINE Non-Admin Reason: No Insulin Coverage Latanoprost (Latanoprost 0.005 % Ophth [place] 2.5 Ml Drops) 1 drop EYE-BOTH BEDTIME [facility] Last Admin: 12/04/21 20:15 Dose: 1 drop Documented By: MARGARETH Melatonin (Melatonin 3 Mg Tablet) 6 mg PO BEDTIME PRN PRN Reason: Insomnia Mycophenolate Sodium (Mycophenolate Sodium 180 Mg Tablet.Dr) 360 mg PO BID [facility] Last Admin: 12/05/21 07:52 Dose: 360 mg Documented By: KAROLINE Ondansetron HCl (Ondansetron Hcl 4 Mg/2 Ml Vial) 4 mg IVPUSH Q8H PRN PRN Reason: Nausea and Vomiting Oxycodone HCl (Oxycodone Hcl Immed Release 5 Mg Tablet) 5 mg PO Q6H PRN PRN Reason: severe pain Last Admin: 12/04/21 20:16 Dose: 5 mg Documented By: MARGARETH Polyethylene Glycol (Polyethylene Glycol 3350 17 Gm Powd.Pack) 17 gm PO DAILY [facility] Last Admin: 12/05/21 07:52 Dose: 17 gm Documented By: KAROLINE Pregabalin (Pregabalin 150 Mg Capsule) 150 mg PO BID [facility] Last Admin: 12/05/21 07:52 Dose: 150 mg Documented By: KAROLINE Sodium Chloride (0.9 % Sodium Chloride Flush 3 Ml Syringe) 3 ml IVFLUSH QSHIFT [facility] Last Admin: 12/05/21 07:52 Dose: 3 ml Documented By: KAROLINE Sodium Zirconium Cyclosilicate (Sodium Zirconium Cyclosilicate 10 Gm Powd.Pack) 10 gm PO BID [facility] Stop: 12/05/21 21:01 Last Admin: 12/05/21 07:52 Dose: 10 gm Documented By: KAROLINE Tacrolimus (Tacrolimus 1 Mg Capsule) 3 mg PO BEDTIME [facility] Last Admin: 12/04/21 20:16 Dose: 3 mg Documented By: MARGARETH Tacrolimus (Tacrolimus 1 Mg Capsule) 3 mg PO DAILY [facility] Last Admin: 12/05/21 07:52 Dose: 3 mg Documented By: KAROLINE Labs CBC & Chem 7: 12/03/21 03:30 12/05/21 05:04 Labs: Laboratory Results - last 24 hr 12/03/21 12/04/21 12/04/21 07:08 11:12 15:23 Anion Gap Estim Creat Clear Calc Estimated GFR POC Glucose 265 H 164 H Random Glucose Calcium Tacrolimus 8.5 12/04/21 12/05/21 12/05/21 20:09 05:04 07:33 Anion Gap 16 Estim Creat Clear Calc 38.8 Estimated GFR 36 POC Glucose 142 H 146 H Random Glucose 158 H Calcium 9.2 Tacrolimus Assessment and Plan (1) MARIAM (acute kidney injury): Status: Acute (2) CKD (chronic kidney disease): Status: Acute (3) Hyperkalemia: Status: Acute Plan d#3 66yo F s/p renal transplant with DM2, HTN presenting with abd pain and found to have MARIAM + hyperK after recent course of SMX/TMP # hyperK - resolved s/p Ca gluconate x1g, insulin/D50, albuterol 10 mg, on SZC 10 mg bid, recheck BMP tomorrow - due to MARIAM + TMP/SMX # MARIAM-CKD3 - due to TMP/SMX + hypoperfusion; FENa 3.4%;; Nephrology consulted, continue IV fluids, avoid nephrotoxins, d/c'edTMP/SMX, held losartan, repeat BMP in AM, SCr improving # renal transplant - continue MMF + tacrolimus #?LLQ pain - resolved, was likely constipation; continue MiraLax # HTN - hold losartan, continue carvedilol # DM2 - basal/bolus insulin # VTE ppx: LMWH In my clinical judgment, the patient requires continued hospitalization for the following reasons: MARIAM requiring IV fluids + monitoring Quality Stroke Does the patient have a stroke diagnosis?: No VTE Prior VTE?: No VTE Risk Level:: Medical - moderate - high VTE Device Contraindication: Treatment Not Indicated VTE Drug Contraindication: N/A - Med Ordered
[2021-12-05 11:24] LABS: Glucose, Whole Blood 202 mg/dL (60-115)
[2021-12-05] MEDS: Insulin Lispro 100 UNIT/ML 3 ML VIAL SUBCUT ×2 (11:45→16:45)
[2021-12-05 16:12] LABS: Glucose, Whole Blood 183 mg/dL (60-115)
[2021-12-05 16:51] LABS: Urea, Random Urine 327 mg/dL
[2021-12-05] MEDS: oxyCODONE HCl Immed Release 5 MG TABLET PO (18:22)
[2021-12-05 20:05] LABS: Glucose, Whole Blood 142 mg/dL (60-115)
[2021-12-05] MEDS: Insulin Glargine,Hum.rec.anlog 100 UNIT/ML 10 ML VIAL 25 UNIT SUBCUT (21:33)
[2021-12-05] MEDS: Latanoprost 0.005 % Ophth Sol 2.5 ML DROPS 1 DROP EYE-BOTH (21:43)
[2021-12-06] VITALS: BP 160/56
[2021-12-06 00:49] VITALS: BP 160/56; PULSE 73; RESP 18; TEMP 36.8; O2SAT 99
[2021-12-06 03:28] VITALS: BP 164/52; PULSE 59; RESP 18; TEMP 36.3; O2SAT 98
[2021-12-06 06:07] LABS: Anion Gap 14 (12-20); Blood Urea Nitrogen 26 mg/dL (9-16); Calcium 9.2 mg/dL (8.4-10.2); Carbon Dioxide 19 mmol/L (22-29); Chloride 114 mmol/L (96-108); Creatinine Clr Calc Pharmacy 48.4; Estimated Glomerular Filt Rate 47; Glucose Random 126 mg/dL (60-115); Potassium 4.5 mmol/L (3.3-5.1); Sodium 142 mmol/L (135-145)
[2021-12-06 07:31] LABS: Glucose, Whole Blood 117 mg/dL (60-115)
[2021-12-06 07:34] VITALS: BP 178/76; PULSE 63; RESP 17; TEMP 36.3; O2SAT 98
[2021-12-06] MEDS: 0.9 % Sodium Chloride Flush 3 ML SYRINGE IVFLUSH (08:11)
[2021-12-06] MEDS: Pregabalin 150 MG CAPSULE PO (08:12)
[2021-12-06] MEDS: polyethylene glycoL 3350 17 GM POWD.PACK PO (08:12)
[2021-12-06] MEDS: Tacrolimus 1 MG CAPSULE 3 MG PO (08:12)
[2021-12-06] MEDS: carvediloL 25 MG TABLET PO (08:12)
[2021-12-06] MEDS: Famotidine 20 MG TABLET PO (08:12)
[2021-12-06] MEDS: Mycophenolate Sodium 180 MG TABLET.DR 360 MG PO (08:12)
[2021-12-06] MEDS: Aspirin Enteric Coated 81 MG TABLET.DR PO (08:12)
[2021-12-06] MEDS: Dorzolamide/Timolo 2.23%/0.68% 10 ML DRBTL 1 DROP EYE-BOTH (08:13)
[2021-12-06] MEDS: Brimonidine Tartrate 0.2% Oph 5 ML BOTTLE 1 DROP EYE-RIGHT (08:14)
--- NOTE | 2021-12-06 10:36 | PM.DS ---
DS: Providers Provider Date of Service: 12/06/21 Date of admission: 12/03/21 06:27 Date of discharge: 12/06/21 Primary care physician: Alvaro Augustine III, MD Consults: 12/03/21 06:13 Consult to Nephrology Routine Consulting Provider: Thao Acevedo Reason for consultation: MARIAM with renal transplant Has provider been notified: Yes DS: Diagnosis Discharge Diagnosis (1) MARIAM (acute kidney injury): Status: Acute (2) Hyperkalemia: Status: Acute (3) CKD (chronic kidney disease) stage 3, GFR 30-59 ml/min: Status: Acute (4) Abdominal pain: Status: Acute (5) Constipation: Status: Acute DS: Summary Hospital Course Hospital Course: from admission H+P by hospitalist Eleuterio Tovar, 12/03/21: This is a 66-year-old female with pertinent history of insulin-dependent diabetes mellitus, essential hypertension, gastroesophageal reflux disease, status post renal transplant, asthma presents to the emergency department for evaluation of abdominal pain and was found to have MARIAM.? Patient states she had been having increasing urinary frequency and was recently treated with Bactrim.? Presents today for evaluation of left-sided abdominal pain which comes in waves, nonprogressive, nonradiating and without any relieving or aggravating factors.? Patient denies fever, chills, chest discomfort, palpitations, changes in urinary habits. In the emergency department, CT abdomen/pelvis was without any acute abnormalities however she was found to have an acute kidney injury.? Nephrology was consulted from the ER. 66yo F s/p renal transplant with DM2 and HTN presenting with abd pain and found to have MARIAM + hyperK after a recent course of SMX/TMP. FENa 3.4%. MARIAM attributed to SMX/TMP and hypoperfusion. Given IV fluids and losartan held. Creatinine returned to baseline. Hyperkalemia was treated with calcium gluconate, insulin, albuterol, and SZC; K normalized as MARIAM resolved. Abdominal pain resolved with treatment of constipation. She was discharged home and instructed to repeat BMP in 1 week and to follow-up with Nephrology and Primary Care in 1-2 weeks. Time Spent with Patient Time attestation: Total time spent providing and/or coordinating discharge services: 35 Discharge coordination time: Greater than 30 minutes Quality: Safe Use of Opioids Does Pt have an Active Cancer Diagnosis on the Problem List?: No Quality: Stroke Does the patient have a stroke diagnosis?: No Physical Exam Vital Signs: Vital Signs: Last Vital Signs Temp 97.4 F 12/06/21 07:34 Pulse 63 12/06/21 07:34 Resp 17 12/06/21 07:34 BP 178/76 H 12/06/21 07:34 Pulse Ox 98 12/06/21 07:34 O2 Del Method 12/06/21 07:34 O2 Flow Rate 98 12/06/21 00:49 FiO2 91 12/05/21 16:00 BMI result Body Mass Index 35.9 Gen: in no acute distress HEENT: sclera anicteric, moist mucus membranes Neck: supple Lungs: clear to auscultation bilaterally Heart: regular rate and rhythm, no murmurs Abd: soft, non-tender, non-distended, obese Ext: no edema Skin: warm/well-perfused Neuro: alert and oriented x3, no focal findings Psych: appropriate affect DS: Data Data Completed and Pending Completed studies during hospitalization [Text1]: Laboratory Results WBC 4.7 X10*3/uL (4.8-10.8) L 12/03/21 03:30 RBC 3.60 X10*6/uL (4.20-5.50) L 12/03/21 03:30 Hgb 10.5 g/dl (12.0-16.0) L 12/03/21 03:30 Hct 32.8 % (37.0-47.0) L 12/03/21 03:30 MCV 91.1 fL (80.0-98.0) 12/03/21 03:30 MCH 29.2 pg (27.0-33.0) 12/03/21 03:30 MCHC 32.0 g/dl (31.0-35.0) 12/03/21 03:30 RDW 12.3 % (11.0-16.0) 12/03/21 03:30 Plt Count 178 X10*3/uL (160-400) 12/03/21 03:30 MPV 11.5 fL (9.4-12.3) 12/03/21 03:30 Immature Gran % (Auto) 0.2 % (0.0-0.4) 12/03/21 03:30 Neut % (Auto) 51.1 % (45-73) 12/03/21 03:30 Lymph % (Auto) 33.9 % (20-40) 12/03/21 03:30 [place] % (Auto) 12.0 % (2-11) H 12/03/21 03:30 Eos % (Auto) 2.4 % (0-4) 12/03/21 03:30 Baso % (Auto) 0.4 % (0-2) 12/03/21 03:30 Lymph # (Auto) 1.6 X10*3/uL (1.2-4.9) 12/03/21 03:30 [place] # (Auto) 0.6 X10*3/uL (0.1-1.2) 12/03/21 03:30 Eos # (Auto) 0.1 X10*3/uL (0.0-0.4) 12/03/21 03:30 Baso # (Auto) 0.0 X10*3/uL (0.0-0.2) 12/03/21 03:30 Abs Immat Gran (auto) 0.01 X10*3/uL (0.00-0.03) 12/03/21 03:30 Absolute Neuts (auto) 2.4 x10*3/uL (2.0-8.3) 12/03/21 03:30 Absolute Nucleated RBC 0.000 X10*3/uL (0.0-0.012) 12/03/21 03:30 Nucleated RBC % (auto) 0.0 /100WBC (0.0-0.2) 12/03/21 03:30 Sodium 142 mmol/L (135-145) 12/06/21 05:36 Potassium 4.5 mmol/L (3.3-5.1) 12/06/21 05:36 Chloride 114 mmol/L (96-108) H 12/06/21 05:36 Carbon Dioxide 19 mmol/L (22-29) L 12/06/21 05:36 Anion Gap 14 (12-20) 12/06/21 05:36 BUN 26 mg/dL (9-16) H 12/06/21 05:36 Creatinine 1.17 mg/dL (0.5-1.4) 12/06/21 05:36 Estim Creat Clear Calc 48.4 12/06/21 05:36 Estimated GFR 47 12/06/21 05:36 POC Glucose 117 mg/dL (60-115) H 12/06/21 07:20 Random Glucose 126 mg/dL (60-115) H 12/06/21 05:36 Estimat Average Glucose 126 mg/dL 12/03/21 07:08 Hemoglobin A1c % 6.0 % 12/03/21 07:08 Calcium 9.2 mg/dL (8.4-10.2) 12/06/21 05:36 Magnesium 2.1 mg/dL (1.6-2.6) 12/03/21 03:30 Total Bilirubin 0.2 mg/dL (0.0-1.0) 12/03/21 03:30 Direct Bilirubin < 0.2 mg/dL (0.0-0.5) 12/03/21 03:30 AST 19 U/L (5-31) 12/03/21 03:30 ALT 16 U/L (0-31) 12/03/21 03:30 Alkaline Phosphatase 103 U/L (39-117) D 12/03/21 03:30 Total Creatine Kinase 573 U/L (26-140) H 12/03/21 03:30 B-Natriuretic Peptide 123 pg/mL (<100) H 12/03/21 03:30 Total Protein 7.6 g/dL (6.5-8.0) 12/03/21 03:30 Albumin 4.5 g/dL (3.5-5.0) 12/03/21 03:30 Lipase 28 U/L (8-78) 12/03/21 03:30 Urine Color Yellow 12/03/21 04:53 Urine Appearance Clear 12/03/21 04:53 Urine pH 7.5 (5.0-9.0) 12/03/21 04:53 Ur Specific [place] 1.010 (1.005-1.025) 12/03/21 04:53 Urine Protein Negative mg/dL (Neg-Trace) 12/03/21 04:53 Urine Glucose (UA) 500 mg/dL (Negative) H 12/03/21 04:53 Urine Ketones Negative mg/dL (Negative) 12/03/21 04:53 Urine Blood Negative (Negative) 12/03/21 04:53 Urine Nitrite Negative (Negative) 12/03/21 04:53 Ur Leukocyte Esterase Negative (Negative) 12/03/21 04:53 Urine Eosinophils % 0.0 % 12/03/21 18:10 Ur Random Sodium 94.0 mmol/L 12/03/21 18:10 Ur Random Urea 327 mg/dL 12/03/21 18:10 Urine Creatinine 28.36 mg/dL 12/03/21 18:10 Tacrolimus 8.5 mcg/L 12/03/21 07:08 COVID-19 ([facility]) Negative (Negative) 12/03/21 03:25 COVID-19 Clin Com See Note 12/03/21 03:25 Impressions Abdomen/Pelvis CT 12/03/21 04:05 IMPRESSION: No acute findings identified in the abdomen/pelvis. Moderate to large volume of stool. Transplant kidney in the right lower quadrant. Discharge Plan Discharge Anticipated Discharge Date/Time: 12/06/21 10:28 Patient Disposition: Home, Self-Care Discharge Diagnosis: # hyperK # MARIAM-CKD3 Referrals: Alvaro Augustine III, MD [Primary Care Provider] - 1 Week Thao Acevedo MD [Physician] - 1 Week Discharge Medications: Continued latanoprost 0.005 % drops 1 drp ophthalmic (eye) BEDTIME atorvastatin 40 mg tablet 1 tab PO BEDTIME oxycodone-acetaminophen 5-325 mg tablet 1 tab PO QID PRN (Reason: pain) dorzolamide-timolol 22.3-6.8 mg/mL drops 1 drp ophthalmic (eye) BID tacrolimus 1 mg capsule 3 cap PO BEDTIME insulin lispro [Humalog KwikPen Insulin] 100 unit/mL insulin pen 16 unit subcut TID Rx Instructions: with meals insulin glargine [Lantus Solostar U-100 Insulin] 100 unit/mL (3 mL) insulin pen 35 unit subcut DAILY mycophenolate sodium 180 mg tablet,delayed release (DR/EC) 2 tab PO BID albuterol sulfate 90 mcg/actuation HFA aerosol inhaler 2 puff inhalation Q4-6H PRN (Reason: shortness of breath or wheezing) Qty: 8.5 0RF carvedilol 25 mg tablet 1 tab PO BID Rx Instructions: administer with meals famotidine 40 mg tablet 1 tab PO BID brimonidine 0.2 % drops 1 drp ophthalmic-Right TID tacrolimus 1 mg capsule 3 mg PO DAILY pregabalin 150 mg capsule 1 cap PO BID Jardiance 25 mg tablet 1 tab PO DAILY furosemide 40 mg tablet 1 tab PO DAILY aspirin 81 mg Tablet,Delayed Release (Dr/Ec) 81 mg PO DAILY omega-3 fatty acids Capsule 1,000 mg PO DAILY Discontinued sulfamethoxazole-trimethoprim 400-80 mg tablet 1 tab PO BID Discharge Orders: Discharge Order (Routine); Ordered 12/06/21 Ordered By: Shakir Alejandro Diet: Diabetic diet Activity on Discharge: As tolerated Stand Alone Forms: Patient Portal Discharge page Other Ambulatory Orders: Basic Metabolic Panel (Routine) Timeframe: 1 Week Facility: [facility] - Location: Laboratory Ordered By: Shakir Alejandro Care Plan Goals: renal health Health Concerns: # hyperK # MARIAM-CKD3 Plan of Treatment: resume prior medications avoid Bactrim [Septra, TMP-SMX] recheck labs on 12/11/21: basic metabolic panel see your kidney doctor within 1-2 weeks Please follow up with your primary care doctor within 1 week. Return to the hospital if you experience recurrent or worsening symptoms. Assessment: See Discharge Summary.
[2021-12-06 11:15] LABS: Glucose, Whole Blood 249 mg/dL (60-115)
[2021-12-06 11:16] VITALS: BP 188/79; PULSE 63; RESP 17; TEMP 36; O2SAT 98
[2021-12-06] MEDS: Insulin Lispro 100 UNIT/ML 3 ML VIAL SUBCUT (11:47)
--- NOTE | 2021-12-06 12:37 | MHC.CM.PN ---
HOME - SELF CARE RN AWARE OF PLAN
== END 2021-12-06 12:46 | disposition home or self-care (01) | DRG 466 ==
LOC: HO.ED 06:13 → HO.EDOVER 06:31 → HO.S3 15:22
PROVIDERS: Admitting Provider Student in an Organized Health Care Education/Training Program; Emergency Provider Emergency Medicine; PCP Internal Medicine; Visit Provider Family Medicine
DX: T86.12 Kidney transplant failure (principal); N17.9 Acute kidney failure, unspecified; D63.1 Anemia in chronic kidney disease; D84.821 Immunodeficiency due to drugs; E11.22 Type 2 diabetes mellitus with diabetic chronic kidney disease; E87.5 Hyperkalemia; K59.00 Constipation, unspecified; I12.9 Hypertensive chronic kidney disease with stage 1 through stage 4 chronic kidney disease, or unspecified chronic kidney disease; N18.30 Chronic kidney disease, stage 3 unspecified; J45.909 Unspecified asthma, uncomplicated; T36.8X5A Adverse effect of other systemic antibiotics, initial encounter; Z20.822 Contact with and (suspected) exposure to COVID-19; Z87.440 Personal history of urinary (tract) infections; Z88.0 Allergy status to penicillin; Z88.8 Allergy status to other drugs, medicaments and biological substances; Z79.4 Long term (current) use of insulin; Z79.82 Long term (current) use of aspirin; Z79.621 Long term (current) use of calcineurin inhibitor; Z79.899 Other long term (current) drug therapy
CPT/HCPCS: 36415; 74176; 80048; 80076; 80197; 81003; 82550; 82947; 83036; 83690; 83735; 83880; 84300; 84540; 85025; 87635; 89190; 93005; 94640; 99285; J0610; J1650; J2270; J2405; Q0163

== ENCOUNTER 2021-12-13 10:41 | Outpatient (REF) | payer OTHER, SELFPAY ==
[2021-12-13 12:17] LABS: Anion Gap 15 (12-20); Blood Urea Nitrogen 28 mg/dL (9-16); Calcium 9.8 mg/dL (8.4-10.2); Carbon Dioxide 21 mmol/L (22-29); Chloride 109 mmol/L (96-108); Estimated Glomerular Filt Rate 39; Glucose Random 126 mg/dL (60-115); Potassium 5.2 mmol/L (3.3-5.1); Sodium 140 mmol/L (135-145)
== END 2021-12-13 10:42 | disposition home or self-care (01) ==
LOC: HO.LAB 10:41
PROVIDERS: PCP Internal Medicine; Visit Provider Family Medicine
DX: N17.9 Acute kidney failure, unspecified (principal); N18.9 Chronic kidney disease, unspecified
CPT/HCPCS: 36415; 80048

== ENCOUNTER 2023-08-14 14:34 | Emergency (ER) | payer MEDICARE, MEDICAID, SELFPAY ==
--- NOTE | ~2023-08-14 | CT_ITS ---
EXAMINATION: CT ABDOMEN AND PELVIS WITHOUT CONTRAST CLINICAL INFORMATION: Right lower quadrant pain and tenderness for 6 days. Renal transplant. COMPARISON: 12/03/2021 TECHNIQUE: Multidetector volumetric imaging was performed from the superior aspect of the liver through the pubic symphysis. Sagittal and coronal reformatted images were obtained on the technologist's workstation. This CT examination was performed using dose optimization techniques as appropriate, variously including the following: *Automated exposure control *Adjustment of mA and/or kV according to patient size (this includes techniques or standardized protocols for targeted exams where dose is matched to indication/reason for exam; i.e. extremities or head) *Use of iterative reconstruction technique DLP: 826 mGy-cm FINDINGS: LUNG BASES: The visualized lung bases are unremarkable. Coronary artery calcifications present LIVER, GALLBLADDER, AND BILIARY TREE: The liver is of low attenuation due to hepatic steatosis and heterogeneous. The gallbladder is unremarkable with no evidence of radiopaque gallstones, gallbladder wall thickening, or obvious pericholecystic inflammatory changes. PANCREAS: Unremarkable. SPLEEN: Unremarkable. ADRENAL GLANDS: Unremarkable. KIDNEYS AND URETERS: Negative kidneys are atrophic with vascular calcifications and there is an exophytic low-attenuation lesion most likely cyst in right kidney, measured 2.6 x 2.1 cm. Transplanted kidney in the right iliac fossa revealed cortical cysts stable since previous study and measured 1.6 x 2.1 cm, 2.2 x 2.0 cm. There is no perinephric stranding or hydronephrosis. BLADDER: Unremarkable. GASTROINTESTINAL TRACT: The small and large bowel are unremarkable. The appendix is unremarkable. ABDOMINAL WALL: There is fat-containing small umbilical hernia LYMPH NODES: Normal. VASCULAR: Extensive vascular calcifications present PELVIC VISCERA: Unremarkable. OSSEOUS STRUCTURES: There is diffuse osteopenia and multilevel degenerative changes in lumbar spine without compression deformities or fractures CT/CT abdomen pelvis wo IV con IMPRESSION: 1. No explanation for right lower quadrant pain. 2. Hepatic steatosis. 3. Atrophic [facility] kidneys and transplanted kidney in the right iliac fossa. 4. Extensive vascular calcifications. 5. Small fat-containing umbilical hernia. Fleischner guidelines were followed.
[2023-08-14 15:00] VITALS: BP 142/55; PULSE 63; RESP 18; TEMP 36.9; O2SAT 97; BMI 35.9
--- NOTE | 2023-08-14 15:00 | ED.GENADULT ---
[facility] - General Adult General Chief complaint: Abdominal Pain Stated complaint: Pain R side down to leg Time Seen by Provider: 08/14/23 15:31 History of Present Illness ED Provider: Nelson CORDOBA narrative: The patient is a 67-year-old woman who has a kidney transplant. She has had a kidney transplant for approximately 11 years. She comes to the emergency room for evaluation of pain in her right lower abdomen. Apparently the patient has had the pain for about 6 or 7 days. She says it was gradual in onset. She indicates the pain is in her very right lower quadrant near the right groin. She says that she also feels it in her lower back, her buttock and down her right leg. She denies any injury. She says that she is felt chilled but has had no definite fever. She says that she saw her kidney doctor 5 days ago on Saturday when she was having the onset of this pain. She says that she had blood work and urine done on Saturday that she was told was unremarkable. She was advised that if she is worse she should come to the emergency room. No dysuria. No vomiting. No diarrhea. Related Data Home Medications ?Medication ?Instructions ?Recorded ?Confirmed atorvastatin 40 mg tablet 1 tab PO BEDTIME 02/21/21 12/03/21 dorzolamide 22.3 mg-timolol 6.8 1 drp ophthalmic (eye) BID 02/21/21 12/03/21 mg/mL eye drops insulin glargine 100 unit/mL (3 35 unit subcut DAILY 02/21/21 12/03/21 mL) subcutaneous pen (Lantus Solostar U-100 Insulin) insulin lispro 100 unit/mL 16 unit subcut TID 02/21/21 12/03/21 subcutaneous pen (Humalog KwikPen (U-100) Insulin) latanoprost 0.005 % eye drops 1 drp ophthalmic (eye) BEDTIME 02/21/21 12/03/21 mycophenolate sodium 180 mg 2 tab PO BID 02/21/21 12/03/21 tablet,delayed release oxycodone-acetaminophen 5 mg-325 1 tab PO QID PRN pain 02/21/21 12/03/21 mg tablet tacrolimus 1 mg capsule, 3 cap PO BEDTIME 02/21/21 12/03/21 immediate-release aspirin 81 mg tablet,delayed 81 mg PO DAILY 12/03/21 12/03/21 release brimonidine 0.2 % eye drops 1 drp ophthalmic-Right TID 12/03/21 12/03/21 carvedilol 25 mg tablet 1 tab PO BID 12/03/21 12/03/21 empagliflozin 25 mg tablet 1 tab PO DAILY 12/03/21 12/03/21 (Jardiance) famotidine 40 mg tablet 1 tab PO BID 12/03/21 12/03/21 furosemide 40 mg tablet 1 tab PO DAILY 12/03/21 12/03/21 omega-3 fatty acids 1,000 mg PO DAILY 12/03/21 12/03/21 pregabalin 150 mg capsule 1 cap PO BID 12/03/21 12/03/21 tacrolimus 1 mg capsule, 3 mg PO DAILY 12/03/21 12/03/21 immediate-release Previous Rx's ?Medication ?Instructions ?Recorded albuterol sulfate 90 mcg/actuation 2 puff inhalation Q4-6H PRN 03/14/21 aerosol inhaler shortness of breath or wheezing #8.5 grams Allergies Allergy/AdvReac Type Severity Reaction Status Date / Time Penicillins Allergy Mild RASH Verified 08/14/23 15:04 hydrocodone [From Vicodin] Allergy Stomach Verified 08/14/23 15:04 Upset losartan AdvReac Intermediate Headache,Di Verified 08/14/23 15:04 zziness Review of Systems Review of Systems: Yes all other systems are reviewed and are negative PMFSH Past Medical History Medical History (Updated 08/14/23 @ 18:37 by Darius Damon MD) CKD (chronic kidney disease) Asthma exacerbation High cholesterol Diabetes HTN (hypertension) Bronchitis Surgical History (Updated 12/14/21 @ 00:02 by Anne Burden) Renal transplant recipient Kidney transplant recipient Social History Social History Household Members: Family Housing: House Do you presently have visiting nurse or other home services: No Alcohol intake: never Patient Tobacco Use Status: Never used Tobacco Advance Directives: No Advance Directives Information Provided: Yes Do you have a plan to hurt others: No Plan service: No Current occupational status: unemployed Physical Exam ED Vital Signs: Vital Signs - 24 hr 08/14/23 15:00 08/14/23 16:58 08/14/23 18:24 Temperature 98.5 F Pulse Rate 63 63 61 Respiratory Rate 18 12 12 Blood Pressure 142/55 H 182/72 H 202/76 H Pulse Oximetry 97 100 98 Oxygen Delivery Method Room Air Room Air Room Air 08/14/23 19:13 Temperature 98.5 F Pulse Rate 85 Respiratory Rate 16 Blood Pressure 180/67 H Pulse Oximetry 98 Oxygen Delivery Method Room Air BMI result Body Mass Index 35.9 Const Other: The patient is awake and alert. She looks somewhat chronically ill but not obviously acutely ill. HENMT Other: Face is symmetrical. Mucous membranes moist. Eyes Other: Pupils are round equal, conjunctivae clear Neck Other: No JVD, moving her neck easily Resp Effort & Inspection: normal respiratory effort Auscultation: clear to auscultation bilaterally Cardio Rate: regular rate Rhythm: regular rhythm Heart sounds: S1 normal heart sound present and S2 normal heart sound present GI Other: The patient has right lower quadrant tenderness quite low down in the right lower quadrant. There is some mild guarding. General: Yes no CVA tenderness Back/Spine/Pelvis Back: no CVA tenderness Skin Other: Skin is pale and dry Neuro Other: The patient is awake and alert. Cranial nerves are grossly intact. She moves her extremities symmetrically. Extrem Other: No peripheral edema Course Course Course Narrative: This is a Rapid Medical Examination (RME) performed by Tito Choi PA-C in triage. Full HPI, ROS, assessment and treatment plan per primary provider in the Main ED. 67 yo female hx of DM, asthma, HLD, HTN, GERD, s/p renal transplant 10 years ago here for eval of right sided abdominal pain x5 days. reports pain began in her right groin and has now moved up to right abdomen. followed up to financial systems director 6 days ago and reports unremarkable renal work up. was advised to come to the ED for further evaluation. denies fever, chills, dysuria, hematuria. denies hx of VTE. not on AC. Obese abdomen, nondistended slightly tender to palpation of right lower quadrant without rebound tenderness or guarding. Normoactive bowel sounds x4. No CVAT bilaterally. No calf tenderness. No lower extremity swelling. Plan: labs, UA, Medications Administered Discontinued Medications Generic Name Dose Route Start Last Admin Trade Name Freq PRN Reason Stop Dose Admin Acetaminophen 975 mg 08/14/23 17:27 08/14/23 18:08 Acetaminophen 325 Mg Tablet PO 08/14/23 17:28 975 mg ONCE ONE Administration Sodium Chloride 1,000 mls @ 999 mls/hr 08/14/23 16:00 08/14/23 16:39 Ns IV 08/14/23 17:00 999 mls/hr .Q1H1M HENRIQUE Administration Oxycodone HCl 5 mg 08/14/23 16:52 08/14/23 18:09 Oxycodone Hcl Immed Release 5 Mg Tablet PO 08/14/23 16:53 5 mg ONCE ONE Administration Medical Decision Making Medical Decision Making [facility] Narrative: The patient is a 67-year-old woman with a history of kidney transplant presents for evaluation of right lower abdominal pain. She also seems to indicate that the pain is in the region of the right buttock, the right hip, the right groin, and radiating down the right leg. She was tender in the right lower quadrant. She seemed chilled but had no fever. Vital signs are unremarkable (mild hypertension). She is on tacrolimus and mycophenolate. She was seen by her financial systems director 5 days ago on Saturday. Apparently her financial systems director did not feel the pain was related to her kidney transplant. Today we have done a CT of the abdomen and pelvis that shows no concerning findings related to right lower quadrant abdominal pain. Her labs do not suggest any acute infectious process. White blood count is 4.5. Differential shows 38.5 neutrophils and 47.8 lymphocytes. CRP is normal. Urine shows no signs of infection. The patient was given a L of IV normal saline. She was given oxycodone and acetaminophen for pain. I suspect this is probably more of a musculoskeletal pain. She will be discharged to follow up with the regular doctors. Lab Data 08/14/23 15:27 08/14/23 15:27 Labs: Lab Results 08/14/23 08/14/23 08/14/23 Range/Units 15:27 16:24 17:43 WBC 4.5 L (4.8-10.8) X10*3/uL RBC 3.76 L (4.20-5.50) X10*6/uL Hgb 11.2 L (12.0-16.0) g/dl Hct 34.4 L (37.0-47.0) % MCV 91.5 (80.0-98.0) fL MCH 29.8 (27.0-33.0) pg MCHC 32.6 (31.0-35.0) g/dl RDW 13.0 (11.0-16.0) % Plt Count 171 (160-400) X10*3/uL MPV 11.8 (9.4-12.3) fL Immature Gran % (Auto) 0.4 (0.0-0.4) % Neut % (Auto) 38.5 L (45-73) % Lymph % (Auto) 47.8 H (20-40) % Desha % (Auto) 9.6 (2-11) % Eos % (Auto) 3.3 (0-4) % Baso % (Auto) 0.4 (0-2) % Lymph # (Auto) 2.1 (1.2-4.9) X10*3/uL Desha # (Auto) 0.4 (0.1-1.2) X10*3/uL Eos # (Auto) 0.2 (0.0-0.4) X10*3/uL Baso # (Auto) 0.0 (0.0-0.2) X10*3/uL Abs Immat Gran (auto) 0.02 (0.00-0.03) X10*3/uL Absolute Neuts (auto) 1.7 L (2.0-8.3) x10*3/uL Absolute Nucleated RBC 0.000 (0.0-0.012) X10*3/uL Nucleated RBC % (auto) 0.0 (0.0-0.2) /100WBC Sodium 137 (135-145) mmol/L Potassium 5.2 H (3.3-5.1) mmol/L Chloride 108 (96-108) mmol/L Carbon Dioxide 20 L (22-29) mmol/L Anion Gap 14 (12-20) BUN 34 H (9-16) mg/dL Creatinine 1.57 H (0.5-1.4) mg/dL Estim Creat Clear Calc 35.6 Estimated GFR 33 Random Glucose 198 H (60-115) mg/dL Calcium 9.3 (8.4-10.2) mg/dL Magnesium 1.8 (1.6-2.6) mg/dL Total Bilirubin 0.3 (0.0-1.0) mg/dL AST 19 (5-31) U/L ALT 15 (0-31) U/L Alkaline Phosphatase 116 (39-117) U/L C-Reactive Protein 0.45 (< or = 0.50) mg/dL Total Protein 7.6 (6.5-8.0) g/dL Albumin 4.0 (3.5-5.0) g/dL Lipase 19 (8-78) U/L Urine Color Yellow Urine Appearance Clear Urine pH 6.0 (5.0-9.0) Ur Specific Colbert 1.015 (1.005-1.025) Urine Protein Negative (Neg-Trace) mg/dL Urine Glucose (UA) >=1000 H (Negative) mg/dL Urine Ketones Negative (Negative) mg/dL Urine Blood Negative (Negative) Urine Nitrite Negative (Negative) Ur Leukocyte Esterase Negative (Negative) Urine RBC 0-2 (0-2) /HPF Urine WBC 0-5 (0-5) /HPF Ur Squamous Epith Cells 0-2 (0-2) /HPF Urine Bacteria None Seen (None Seen) Hyaline Casts 0-2 (0-2) /LPF Influenza Type A (PCR) NEGATIVE (Negative) Influenza Type B (PCR) NEGATIVE (Negative) RSV RNA Qual (PCR) NEGATIVE (Negative) SARS-CoV-2 RNA (RT-PCR) NEGATIVE (Negative) Discharge Plan Discharge Clinical Impression: Right lower quadrant abdominal pain, Right groin pain Patient Disposition: Home, Self-Care Additional Instructions: Your testing in the emergency room today does not reveal any explanation for your pain. This makes me think your pain might be muscular pain. Please rest and take it easy and avoid activities which make the pain worse. You may take 2 extra-strength acetaminophen (Tylenol) up to 3 times a day as needed for the pain. Follow up soon with your regular doctor for a second opinion. Return to the emergency room if you feel significantly worse. Prescriptions: No Action latanoprost 0.005 % drops 1 drp ophthalmic (eye) BEDTIME atorvastatin 40 mg tablet 1 tab PO BEDTIME oxycodone-acetaminophen 5-325 mg tablet 1 tab PO QID PRN (Reason: pain) dorzolamide-timolol 22.3-6.8 mg/mL drops 1 drp ophthalmic (eye) BID tacrolimus 1 mg capsule 3 cap PO BEDTIME insulin lispro [Humalog KwikPen Insulin] 100 unit/mL insulin pen 16 unit subcut TID Rx Instructions: with meals insulin glargine [Lantus Solostar U-100 Insulin] 100 unit/mL (3 mL) insulin pen 35 unit subcut DAILY mycophenolate sodium 180 mg tablet,delayed release (DR/EC) 2 tab PO BID albuterol sulfate 90 mcg/actuation HFA aerosol inhaler 2 puff inhalation Q4-6H PRN (Reason: shortness of breath or wheezing) Qty: 8.5 0RF carvedilol 25 mg tablet 1 tab PO BID Rx Instructions: administer with meals famotidine 40 mg tablet 1 tab PO BID brimonidine 0.2 % drops 1 drp ophthalmic-Right TID tacrolimus 1 mg capsule 3 mg PO DAILY pregabalin 150 mg capsule 1 cap PO BID Jardiance 25 mg tablet 1 tab PO DAILY furosemide 40 mg tablet 1 tab PO DAILY aspirin 81 mg Tablet,Delayed Release (Dr/Ec) 81 mg PO DAILY omega-3 fatty acids Capsule 1,000 mg PO DAILY Interventions: ED Discharge Assessment Last Done: 08/14/23 19:13 Discharge Date/Time: 08/14/23 19:15 Print Language: [place]
[2023-08-14 15:30] LABS: MANUAL DIFF FLAG NO
[2023-08-14 15:32] LABS: Basophils Percent Auto 0.4 % (0-2); Eosinophils Absolute Auto 0.2 X10*3/uL (0.0-0.4); Eosinophils Percent Auto 3.3 % (0-4); Hematocrit 34.4 % (37.0-47.0); Hemoglobin 11.2 g/dl (12.0-16.0); Imm Gran Abs Auto 0.02 X10*3/uL (0.00-0.03); Imm Gran Pct Auto 0.4 % (0.0-0.4); Lymphocytes Absolute Auto 2.1 X10*3/uL (1.2-4.9); Lymphocytes Percent Auto 47.8 % (20-40); Mean Corpuscular HGB Conc 32.6 g/dl (31.0-35.0); Mean Corpuscular Hemoglobin 29.8 pg (27.0-33.0); Mean Corpuscular Volume 91.5 fL (80.0-98.0); Mean Platelet Volume 11.8 fL (9.4-12.3); Monocytes Absolute Auto 0.4 X10*3/uL (0.1-1.2); Monocytes Percent Auto 9.6 % (2-11); Neutrophils Absolute Auto 1.7 x10*3/uL (2.0-8.3); Neutrophils Percent Auto 38.5 % (45-73); Platelet Count 171 X10*3/uL (160-400); Red Blood Count 3.76 X10*6/uL (4.20-5.50); White Blood Count 4.5 X10*3/uL (4.8-10.8)
[2023-08-14 15:47] LABS: Alanine Aminotransferase 15 U/L (0-31); Alkaline Phosphatase 116 U/L (39-117); Anion Gap 14 (12-20); Aspartate Amino Transferase 19 U/L (5-31); Bilirubin Total 0.3 mg/dL (0.0-1.0); Blood Urea Nitrogen 34 mg/dL (9-16); Calcium 9.3 mg/dL (8.4-10.2); Carbon Dioxide 20 mmol/L (22-29); Chloride 108 mmol/L (96-108); Creatinine Clr Calc Pharmacy 35.6; Estimated Glomerular Filt Rate 33; Glucose Random 198 mg/dL (60-115); Lipase 19 U/L (8-78); Magnesium 1.8 mg/dL (1.6-2.6); Potassium 5.2 mmol/L (3.3-5.1); Sodium 137 mmol/L (135-145); Total Protein 7.6 g/dL (6.5-8.0)
[2023-08-14 16:31] LABS: Appearance Urine Clear; Color Urine Yellow; Glucose Urine UA >=1000 mg/dL (Negative); Leukocyte Esterase Urine Negative (Negative); Nitrite Urine Negative (Negative); Specific Gravity - Urine 1.015 (1.005-1.025); UMIC TRIGGER UACC YES; Urine Blood Negative (Negative); Urine Ketones Negative (Negative); Urine Protein Negative (Neg-Trace)
[2023-08-14] MEDS: 0.9 % Sodium Chloride 1,000 ML 999 ML IV (16:39)
--- NOTE | 2023-08-14 16:40 | PC.NURSE ---
pt reports 09/27 pian from r groin radiates to rlq abd. abd is firm and tender with no discoloration noted. pt appears to be in mild discomfort is requesting analgesic. no bruit noted. pt is in nsr on monitor. awaiting lab results
[2023-08-14 16:44] LABS: C Reactive Protein 0.45 mg/dL (< or = 0.50)
[2023-08-14 16:48] LABS: Bacteria Urine None Seen (None Seen); Hyaline Casts Urine 0-2 /LPF (0-2); RBC Urine 0-2 /HPF (0-2); Squamous Epithelial Cell Urine 0-2 /HPF (0-2); WBC Urine 0-5 /HPF (0-5)
[2023-08-14 16:58] VITALS: BP 182/72; PULSE 63; RESP 12; O2SAT 100
[2023-08-14] MEDS: Acetaminophen 325 MG TABLET 975 MG PO (18:08)
[2023-08-14] MEDS: oxyCODONE HCl Immed Release 5 MG TABLET PO (18:09)
[2023-08-14 18:24] VITALS: BP 202/76; PULSE 61; RESP 12; O2SAT 98
[2023-08-14 18:31] LABS: Influenza A PCR NEGATIVE (Negative); Influenza B PCR NEGATIVE (Negative); Resp Syncy Virus RNA Qual PCR NEGATIVE (Negative); SARS COV2 PCR INHOUSE NEGATIVE (Negative)
[2023-08-14 19:13] VITALS: BP 180/67; PULSE 85; RESP 16; TEMP 36.9; O2SAT 98
== END 2023-08-14 19:15 | disposition home or self-care (01) ==
PROVIDERS: Physician Assistant Medical; Emergency Provider Emergency Medicine; PCP Internal Medicine
DX: R10.31 Right lower quadrant pain (principal); E11.22 Type 2 diabetes mellitus with diabetic chronic kidney disease; I12.9 Hypertensive chronic kidney disease with stage 1 through stage 4 chronic kidney disease, or unspecified chronic kidney disease; N18.9 Chronic kidney disease, unspecified; Z03.818 Encounter for observation for suspected exposure to other biological agents ruled out
CPT/HCPCS: 0241U; 36415; 74176; 80053; 81001; 83690; 83735; 85025; 86140; 99284

== ENCOUNTER 2023-11-18 22:02 | Inpatient (IN) | payer MEDICARE, MEDICAID, SELFPAY ==
--- NOTE | ~2023-11-18 | CT_ITS ---
EXAMINATION: CT ABDOMEN AND PELVIS WITHOUT CONTRAST CLINICAL INFORMATION: Severe abdominal pain. COMPARISON: CT abdomen and pelvis 08/14/2023. TECHNIQUE: Multidetector volumetric imaging was performed from the superior aspect of the liver through the pubic symphysis. Sagittal and coronal reformatted images were obtained on the technologist's workstation. This CT examination was performed using dose optimization techniques as appropriate, variously including the following: *Automated exposure control *Adjustment of mA and/or kV according to patient size (this includes techniques or standardized protocols for targeted exams where dose is matched to indication/reason for exam; i.e. extremities or head) *Use of iterative reconstruction technique DLP: 1087 mGy-cm FINDINGS: LUNG BASES: The visualized lung bases are unremarkable. LIVER, GALLBLADDER, AND BILIARY TREE: The liver is normal in size, shape, and attenuation. No focal hepatic lesion or biliary ductal dilatation is present. The gallbladder is unremarkable with no evidence of radiopaque gallstones, gallbladder wall thickening, or obvious pericholecystic inflammatory changes. PANCREAS: Unremarkable. SPLEEN: Unremarkable. ADRENAL GLANDS: Unremarkable. KIDNEYS AND URETERS: Marked diffuse [place] renal atrophy. The right lower quadrant transplant kidney is identified contains several rounded well-circumscribed low-density foci most consistent with benign, simple renal cyst requiring no additional imaging follow-up. BLADDER: Physiologically distended. GASTROINTESTINAL TRACT: No intestinal dilatation or mural thickening. Normal appearance of the appendix. No free intraperitoneal fluid or gas collections. Normal sigmoid mesentery and small bowel mesentery. ABDOMINAL WALL: Focal reticulation of the subcutaneous fat within the left lower abdominal quadrant similar findings present 08/14/2023. LYMPH NODES: Normal. VASCULAR: Marked diffuse vascular calcifications. PELVIC VISCERA: Atrophic uterus. No adnexal lesions. OSSEOUS STRUCTURES: The T7 vertebral body is partially included in the image field of view. Partial visualization is made of erosion and irregularity of the inferior endplate of T7. Erosion and focal lysis of the superior endplate of T8 is noted. Prominent paraspinous soft tissue density is noted along the left and right lateral aspect and anterior aspect of the T7-T8 intervertebral disc space multilevel chronic appearing facet and endplate osteophytosis is present elsewhere in the visualized thoracic and lumbar spine. CT/CT abdomen pelvis wo IV con Impression: 1. Findings suspicious for T7-T8 discitis-osteomyelitis. Partial visualization of endplate erosion and paraspinous soft tissue inflammatory changes adjacent to the T7-T8 intervertebral disc space. These findings are only partially included in the image field of view and extends beyond the superior margin of the field of view. 2. Right lower quadrant transplant kidney without evidence of hydronephrosis or perinephric fluid collections. Marked atrophy of the [place] kidneys. Electronically signed by: Liborio Feng MD 11/19/2023 03:30 AM EDT RP
--- NOTE | ~2023-11-18 | XR_ITS ---
EXAMINATION: XR CHEST CLINICAL INFORMATION: Chest pain. COMPARISON: November 18, 2023. TECHNIQUE: Portable AP view of the chest was obtained. FINDINGS: The study is limited by portable technique, low lung volumes, and patient body habitus. Mild diffuse interstitial prominence. It is uncertain whether this represents artifactual crowding of the interstitium related to suboptimal inspiration versus true infiltrate. Small patchy and hazy bibasilar density suggesting pleural fluid, atelectasis, and/or infiltrates, grossly similar compared with November 18, 2023. The cardiac silhouette is suboptimally evaluated. Severe degenerative changes of the right glenohumeral joint, with possible avascular necrosis. Mild degenerative changes of the spine. Tip of right upper extremity venous line projects over the right axilla. Partially imaged right upper extremity surgical clips. XR/XR chest 1V IMPRESSION: Findings as above. Electronically signed by: Raphael Sandhu MD 11/20/2023 07:21 AM EDT
--- NOTE | ~2023-11-18 | XR_ITS ---
EXAMINATION: XR CHEST CLINICAL INFORMATION: Rule out free air under diaphragm. COMPARISON: CT abdomen and pelvis 08/14/2023. TECHNIQUE: Frontal view of the chest was obtained. FINDINGS: The right upper extremity PICC terminates in projection with the right atrium. Low lung volumes are noted. The cardiac silhouette is normal in size. Moderate aortic calcific atherosclerosis. Horizontally oriented coarse reticular opacities within the left and right lung base is most suspicious for platelike atelectasis. No definitive effusions or pneumothoraces. No focal pulmonary consolidation. No subphrenic free intraperitoneal gas identified. Advanced arthropathic changes of the right humeral head visualized. XR/XR chest 1V IMPRESSION: *No subphrenic free intraperitoneal gas identified. *Low lung volumes and bibasilar platelike atelectasis. *Right upper extremity PICC terminating within the right atrium. Electronically signed by: Liborio Feng MD 11/19/2023 12:11 AM EDT
[2023-11-18 22:22] VITALS: BP 136/78; PULSE 75; O2SAT 96
[2023-11-18 22:24] VITALS: PULSE 66; RESP 18; TEMP 36.9; O2SAT 97; BMI 37.8
--- NOTE | 2023-11-18 22:28 | PC.NURSE ---
pt was 86-88% on RA, pt placed on O2/2L/NC sats went up to 99 %
[2023-11-18 22:34] VITALS: BP 157/83
--- NOTE | 2023-11-18 22:43 | ECG_ITS ---
Test Reason : ABD PAIN Blood Pressure : / mmHG Vent. Rate : 071 BPM Atrial Rate : 071 BPM P-R Int : 146 ms QRS Dur : 114 ms QT Int : 380 ms P-R-T Axes : 016 -28 113 degrees QTc Int : 412 ms Poor data quality, interpretation may be adversely affected Normal sinus rhythm Left ventricular hypertrophy with repolarization abnormality ( R in aVL , [place] product ) Abnormal ECG When compared with ECG of 03-DEC-2021 08:30, No significant change was found Referred By: Ally Rey Electronically Signed By:SUE CATHERINE
--- NOTE | 2023-11-18 22:55 | ED.ABDPAIN ---
HPI - Abdominal Pain General Chief Complaint: Abdominal Pain Stated Complaint: 11/27 ab pain, distention, hx of diabetic gastropa Time Seen by Provider: 11/18/23 22:38 Source: patient, family and EMS Mode of arrival: EMS Limitations: no limitations History of Present Illness ED Provider: Dr. Ally Rey HPI narrative: Patient comes to the emergency room via ambulance from home. Patient complaining of severe abdominal pain and swelling. Patient states that the pain has been present for about 2 weeks, today noticed that there is a lump growing in her abdomen. Patient states that less than a week ago, patient was discharged from [facility], patient was admitted for 2 days and then discharged. Patient can not fully describe what she was treated for, seems that it was gastroparesis? Patient denies any abdominal surgeries other than previous C-sections. Patient states that she has been trying to throw up but she can not. Denies diarrhea, complaining of constipation. Per EMS, patient received 300 mcg of fentanyl IV. Related Data Home Medications ?Medication ?Instructions ?Recorded ?Confirmed atorvastatin 40 mg tablet 1 tab PO BEDTIME 02/21/21 12/03/21 dorzolamide 22.3 mg-timolol 6.8 1 drp ophthalmic (eye) BID 02/21/21 12/03/21 mg/mL eye drops insulin glargine 100 unit/mL (3 35 unit subcut DAILY 02/21/21 12/03/21 mL) subcutaneous pen (Lantus Solostar U-100 Insulin) insulin lispro 100 unit/mL 16 unit subcut TID 02/21/21 12/03/21 subcutaneous pen (Humalog KwikPen (U-100) Insulin) latanoprost 0.005 % eye drops 1 drp ophthalmic (eye) BEDTIME 02/21/21 12/03/21 mycophenolate sodium 180 mg 2 tab PO BID 02/21/21 12/03/21 tablet,delayed release oxycodone-acetaminophen 5 mg-325 1 tab PO QID PRN pain 02/21/21 12/03/21 mg tablet tacrolimus 1 mg capsule, 3 cap PO BEDTIME 02/21/21 12/03/21 immediate-release aspirin 81 mg tablet,delayed 81 mg PO DAILY 12/03/21 12/03/21 release brimonidine 0.2 % eye drops 1 drp ophthalmic-Right TID 12/03/21 12/03/21 carvedilol 25 mg tablet 1 tab PO BID 12/03/21 12/03/21 empagliflozin 25 mg tablet 1 tab PO DAILY 12/03/21 12/03/21 (Jardiance) famotidine 40 mg tablet 1 tab PO BID 12/03/21 12/03/21 furosemide 40 mg tablet 1 tab PO DAILY 12/03/21 12/03/21 omega-3 fatty acids 1,000 mg PO DAILY 12/03/21 12/03/21 pregabalin 150 mg capsule 1 cap PO BID 12/03/21 12/03/21 tacrolimus 1 mg capsule, 3 mg PO DAILY 12/03/21 12/03/21 immediate-release Previous Rx's ?Medication ?Instructions ?Recorded albuterol sulfate 90 mcg/actuation 2 puff inhalation Q4-6H PRN 03/14/21 aerosol inhaler shortness of breath or wheezing #8.5 grams Allergies Allergy/AdvReac Type Severity Reaction Status Date / Time Penicillins Allergy Mild RASH Verified 11/18/23 22:26 hydrocodone [From Vicodin] Allergy Stomach Verified 11/18/23 22:26 Upset losartan AdvReac Intermediate Headache,Di Verified 11/18/23 22:26 zziness Review of Systems Review of Systems Constitutional : No Weight loss, No Fever, No Chills, No Night Sweats, No Fatigue, No Malaise ENT/Mouth : No Hearing loss, No Ear Pain, No Nasal Congestion, No Sinus Pain, No Hoarseness, No sore throat, No Rhinorrhea, No Swallowing Difficulty Eyes: No Eye Pain, No Swelling, No Redness, No Foreign Body, No Discharge, No Vision Changes Cardiovascular : No Chest Pain, No SOB, No Dyspnea on Exertion, No Orthopnea, No Edema, No Palpitations Respiratory : No Cough, No Sputum, No Wheezing, No Smoke Exposure, No Dyspnea Gastrointestinal : N complaining of nausea, unable to vomit, complaining of constipation, complaining of severe epigastric abdominal pain and new abdominal swelling Genitourinary : no irregular bleeding, No Dysuria, No Urinary Frequency, No Hematuria, No Urinary Incontinence, No Urgency, No Flank Pain, No Urinary Flow Changes, No Hesitancy Musculoskeletal : No joint pain, No Myalgias, No Joint Swelling Skin : No Skin Lesions, No rash Neuro : No Weakness, No Numbness, No Paresthesias, No Loss of Consciousness, No Dizziness, No Headache Psych : No Anxiety/Panic, No Depression, No SI/HI/AH/VH, No Social Issues, Heme/Lymph: No Bruising, No Bleeding,No Lymphadenopathy Endocrine : No Polyuria, No Polydipsia, No Temperature Intolerance [facility] Past Medical History Medical History CKD (chronic kidney disease) Asthma exacerbation High cholesterol Diabetes HTN (hypertension) Bronchitis Surgical History (Updated 12/14/21 @ 00:02 by Anne Burden) Renal transplant recipient Kidney transplant recipient Social History Social History Household Members: Family Housing: House Do you presently have visiting nurse or other home services: No Alcohol intake: never Patient Tobacco Use Status: Never used Tobacco Smoked in Last 30 Days: No Use of substances other than those prescribed or required for medical reasons: No Advance Directives: No Advance Directives Information Provided: No Do you have a plan to hurt others: No Plan service: No Current occupational status: unemployed Physical Exam ED Vital Signs: Vital Signs - 24 hr 11/18/23 22:24 11/18/23 22:34 11/19/23 02:34 Temperature 98.5 F 99.9 F Pulse Rate 66 82 Respiratory Rate 18 20 Blood Pressure 157/83 H 157/70 H Pulse Oximetry 97 92 Oxygen Delivery Method Nasal Cannula Room Air 11/19/23 04:21 Temperature Pulse Rate 79 Respiratory Rate 20 Blood Pressure 159/37 H Pulse Oximetry 94 Oxygen Delivery Method Room Air BMI result Body Mass Index 37.8 Const Other: Appearance: Alert. Oriented X3. Patient's seems very uncomfortable, unable to lay down due to pain Eyes: Pupils equal, round and reactive to light. ENT: Pharynx normal. Neck: Normal inspection. Neck supple. No lymph nodes noted. No crepitus CVS: Normal heart rate and rhythm. Pulses normal. Normal S1 and S2 Respiratory: No respiratory distress. Breath sounds normal. No Wheezing. No rales Abdomen: Distended, very tender to palpation in all quadrants especially upper quadrants and epigastric area Skin: Skin warm and dry. Normal skin color. Normal skin turgor. Extremities: No lower extremity edema. No Lacerations. No Rash Neuro: Oriented X 3. No motor deficit. No sensory deficit. Moving all extremities. No slurred speech. CN 2 through 12 grossly intact Psych: calm, cooperative, normal affect Course Course Course Narrative: -patient received 30 mcg of fentanyl in the ambulance -patient receiving here IV fluids, morphine, Zofran. Patient seems very uncomfortable -chest x-ray to rule out free air pending, patient also needs all the labs to be done and a CT scan. -records from [facility] have been requested, return fax pending Medical Decision Making Medical Decision Making [facility] Narrative: My interpretation of labs: No significant change in white blood cell count, patient's hemoglobin 8.9,, normal chemistry -my interpretation of CT scan: No obvious abdominal abnormality. -CT scan shows diskitis of T7/T8. -from [facility] previous records, patient has known osteomyelitis of T7 for which she is taking IV cefazolin t.i.d. through her PICC line. Patient was given a dose here in the emergency room. Now, patient has diskitis/osteomyelitis of T8 as well. -I discussed with our hospitalist Dr. Tovar, no need to add vancomycin or change antibiotic. Patient not complaining of any new back pain. -patient is still complaining of abdominal pain, unable to tolerate fluids, states that she has 10/10 pain any time that she eats or drinks anything here in the emergency room. Patient has not vomited once but is complaining of ongoing severe pain. -we tried discharging the patient multiple times but continues having abdominal pain. -I discussed the patient with Dr. Tovar, patient being admitted by the 18 Differential Diagnosis Differential Diagnoses: The differential diagnosis associated with the presentation includes (SBO, gastroparesis, pancreatitis, constipation, cholecystitis) Admission/Observation Consideration of admission/observation: Escalation of care including admission/observation considered Lab Data [facility] Lab Attestation statement: I reviewed the patient's lab results. 11/18/23 23:46 11/18/23 23:46 Labs: Lab Results 11/18/23 11/19/23 Range/Units 23:46 04:23 WBC 6.7 (4.8-10.8) X10*3/uL RBC 3.03 L (4.20-5.50) X10*6/uL Hgb 8.9 L D (12.0-16.0) g/dl Hct 28.1 L (37.0-47.0) % MCV 92.7 (80.0-98.0) fL MCH 29.4 (27.0-33.0) pg MCHC 31.7 (31.0-35.0) g/dl RDW 13.2 (11.0-16.0) % Plt Count 242 D (160-400) X10*3/uL MPV 10.9 (9.4-12.3) fL Immature Gran % (Auto) 0.3 (0.0-0.4) % Neut % (Auto) 66.6 (45-73) % Lymph % (Auto) 21.2 (20-40) % [place] % (Auto) 9.7 (2-11) % Eos % (Auto) 1.5 (0-4) % Baso % (Auto) 0.7 (0-2) % Lymph # (Auto) 1.4 (1.2-4.9) X10*3/uL [place] # (Auto) 0.7 (0.1-1.2) X10*3/uL Eos # (Auto) 0.1 (0.0-0.4) X10*3/uL Baso # (Auto) 0.1 (0.0-0.2) X10*3/uL Abs Immat Gran (auto) 0.02 (0.00-0.03) X10*3/uL Absolute Neuts (auto) 4.5 (2.0-8.3) x10*3/uL Absolute Nucleated RBC 0.000 (0.0-0.012) X10*3/uL Nucleated RBC % (auto) 0.0 (0.0-0.2) /100WBC Sodium 137 (135-145) mmol/L Potassium 4.8 (3.3-5.1) mmol/L Chloride 106 (96-108) mmol/L Carbon Dioxide 20 L (22-29) mmol/L Anion Gap 16 (12-20) BUN 35 H (9-16) mg/dL Creatinine 1.23 (0.5-1.4) mg/dL Estim Creat Clear Calc 46.8 Estimated GFR 44 Random Glucose 161 H (60-115) mg/dL Lactic Acid 0.6 (0.5-2.0) mmol/L Calcium 9.4 (8.4-10.2) mg/dL Magnesium 1.9 (1.6-2.6) mg/dL Total Bilirubin 0.3 (0.0-1.0) mg/dL Direct Bilirubin 0.2 (0.0-0.5) mg/dL AST 12 (5-31) U/L ALT < 5 (0-31) U/L Alkaline Phosphatase 118 H (39-117) U/L Troponin I High Sens 7.9 (<3.5-17.0) ng/L Total Protein 7.8 (6.5-8.0) g/dL Albumin 3.5 (3.5-5.0) g/dL Lipase 7 L (8-78) U/L Urine Color Yellow Urine Appearance Clear Urine pH 5.5 (5.0-9.0) Ur Specific [place] 1.015 (1.005-1.025) Urine Protein Trace (Neg-Trace) mg/dL Urine Glucose (UA) Negative (Negative) mg/dL Urine Ketones Negative (Negative) mg/dL Urine Blood Negative (Negative) Urine Nitrite Negative (Negative) Ur Leukocyte Esterase Negative (Negative) Independent Interpretation I performed an independent interpretation of an: CT Scan Radiology Impression Discussion of test interpretation with radiology: I have reviewed the radiologist's reading. Radiologist Impression: 1. Findings suspicious for T7-T8 discitis-osteomyelitis. Partial visualization of endplate erosion and paraspinous soft tissue inflammatory changes adjacent to the T7-T8 intervertebral disc space. These findings are only partially included in the image field of view and extends beyond the superior margin of the field of view. 2. Right lower quadrant transplant kidney without evidence of hydronephrosis or perinephric fluid collections. Marked atrophy of the [place] kidneys. Medications Administered Discontinued Medications Generic Name Dose Route Start Last Admin Trade Name Freq PRN Reason Stop Dose Admin Acetaminophen 975 mg 11/19/23 02:36 11/19/23 03:10 Acetaminophen 325 Mg Tablet PO 11/19/23 02:37 Not Given ONCE ONE Sodium Chloride 1,000 mls @ 999 mls/hr 11/18/23 22:51 11/19/23 01:49 Ns IVCONT 11/18/23 23:51 Infused .Q1H1M ONE Infusion Cefazolin Sodium/Dextrose 2 gm in 50 mls @ 100 mls/hr 11/19/23 03:43 11/19/23 04:26 Ancef IV 11/19/23 04:12 Infused ONCE ONE Infusion Morphine Sulfate 4 mg 11/18/23 22:51 11/18/23 23:07 Morphine Sulfate 4 Mg/Ml Cartridge IVPUSH 11/18/23 22:52 4 mg ONCE ONE Administration Protocol Morphine Sulfate 1 mg 11/19/23 02:54 11/19/23 03:10 Morphine Sulfate 2 Mg/Ml Cartridge IVPUSH 11/19/23 02:55 1 mg ONCE ONE Administration Protocol Ondansetron HCl 4 mg 11/18/23 22:51 11/18/23 23:07 Ondansetron Hcl 4 Mg/2 Ml Vial IVPUSH 11/18/23 22:52 4 mg ONCE ONE Administration Critical Care Time Critical Care Time Critical Care Time: Yes Total Critical Care Time: 75 Attestation: I have personally provided critical care time. Time includes review of lab data, radiology results, discussion with consultants, and monitoring for potential decompensation. Intervention performed as documented. Discharge Plan Discharge Clinical Impression: Gastroparesis, Abdominal pain Patient Disposition: Admitted As Inpatient Prescriptions: No Action latanoprost 0.005 % drops 1 drp ophthalmic (eye) BEDTIME atorvastatin 40 mg tablet 1 tab PO BEDTIME oxycodone-acetaminophen 5-325 mg tablet 1 tab PO QID PRN (Reason: pain) dorzolamide-timolol 22.3-6.8 mg/mL drops 1 drp ophthalmic (eye) BID tacrolimus 1 mg capsule 3 cap PO BEDTIME insulin lispro [Humalog KwikPen Insulin] 100 unit/mL insulin pen 16 unit subcut TID Rx Instructions: with meals insulin glargine [Lantus Solostar U-100 Insulin] 100 unit/mL (3 mL) insulin pen 35 unit subcut DAILY mycophenolate sodium 180 mg tablet,delayed release (DR/EC) 2 tab PO BID albuterol sulfate 90 mcg/actuation HFA aerosol inhaler 2 puff inhalation Q4-6H PRN (Reason: shortness of breath or wheezing) Qty: 8.5 0RF carvedilol 25 mg tablet 1 tab PO BID Rx Instructions: administer with meals famotidine 40 mg tablet 1 tab PO BID brimonidine 0.2 % drops 1 drp ophthalmic-Right TID tacrolimus 1 mg capsule 3 mg PO DAILY pregabalin 150 mg capsule 1 cap PO BID Jardiance 25 mg tablet 1 tab PO DAILY furosemide 40 mg tablet 1 tab PO DAILY aspirin 81 mg Tablet,Delayed Release (Dr/Ec) 81 mg PO DAILY omega-3 fatty acids Capsule 1,000 mg PO DAILY Print Language: Montenegrin
[2023-11-18] MEDS: 0.9 % Sodium Chloride 1,000 ML 999 ML IVCONT (23:06)
[2023-11-18] MEDS: Morphine Sulfate 4 MG/ML CARTRIDGE IVPUSH (23:07)
[2023-11-18] MEDS: ondansetron HCL 4 MG/2 ML VIAL IVPUSH (23:07)
--- NOTE | 2023-11-18 23:19 | PC.NURSE ---
Per Dr Ulloa's ok, may use Picc line for medication
--- NOTE | 2023-11-18 23:25 | ECG_ITS ---
Test Reason : ABD PAIN Blood Pressure : / mmHG Vent. Rate : 073 BPM Atrial Rate : 073 BPM P-R Int : 150 ms QRS Dur : 110 ms QT Int : 378 ms P-R-T Axes : 031 -28 116 degrees QTc Int : 416 ms Sinus rhythm with Premature supraventricular complexes Left ventricular hypertrophy with repolarization abnormality ( R in aVL , Geoffrey product ) Abnormal ECG When compared with ECG of 18-NOV-2023 23:24, Premature supraventricular complexes are now Present Referred By: Ally Rey Electronically Signed By:SUE CATHERINE
[2023-11-18 23:52] LABS: Basophils Absolute Auto 0.1 X10*3/uL (0.0-0.2); Basophils Percent Auto 0.7 % (0-2); Eosinophils Absolute Auto 0.1 X10*3/uL (0.0-0.4); Eosinophils Percent Auto 1.5 % (0-4); Hematocrit 28.1 % (37.0-47.0); Hemoglobin 8.9 g/dl (12.0-16.0); Imm Gran Abs Auto 0.02 X10*3/uL (0.00-0.03); Imm Gran Pct Auto 0.3 % (0.0-0.4); Lymphocytes Absolute Auto 1.4 X10*3/uL (1.2-4.9); Lymphocytes Percent Auto 21.2 % (20-40); MANUAL DIFF FLAG NO; Mean Corpuscular HGB Conc 31.7 g/dl (31.0-35.0); Mean Corpuscular Hemoglobin 29.4 pg (27.0-33.0); Mean Corpuscular Volume 92.7 fL (80.0-98.0); Mean Platelet Volume 10.9 fL (9.4-12.3); Monocytes Absolute Auto 0.7 X10*3/uL (0.1-1.2); Monocytes Percent Auto 9.7 % (2-11); Neutrophils Absolute Auto 4.5 x10*3/uL (2.0-8.3); Neutrophils Percent Auto 66.6 % (45-73); Platelet Count 242 X10*3/uL (160-400); Red Blood Count 3.03 X10*6/uL (4.20-5.50); Red Cell Distribution Width 13.2 % (11.0-16.0); White Blood Count 6.7 X10*3/uL (4.8-10.8)
[2023-11-19] VITALS (10 sets, daily range): BP systolic 157–194; BP diastolic 37–86; PULSE 69–82; RESP 14–20; TEMP 37.1–38.1; O2SAT 91–94; BMI 37.4
[2023-11-19 00:06] LABS: Lactic Acid 0.6 mmol/L (0.5-2.0)
[2023-11-19 00:15] LABS: Troponin-I High Sensitivity 7.9 ng/L (<3.5-17.0)
[2023-11-19 00:18] LABS: Alanine Aminotransferase < 5 U/L (0-31); Albumin Level 3.5 g/dL (3.5-5.0); Alkaline Phosphatase 118 U/L (39-117); Anion Gap 16 (12-20); Aspartate Amino Transferase 12 U/L (5-31); Bilirubin Direct 0.2 mg/dL (0.0-0.5); Bilirubin Total 0.3 mg/dL (0.0-1.0); Blood Urea Nitrogen 35 mg/dL (9-16); Calcium 9.4 mg/dL (8.4-10.2); Carbon Dioxide 20 mmol/L (22-29); Chloride 106 mmol/L (96-108); Creatinine Clr Calc Pharmacy 46.8; Estimated Glomerular Filt Rate 44; Glucose Random 161 mg/dL (60-115); Lipase 7 U/L (8-78); Magnesium 1.9 mg/dL (1.6-2.6); Potassium 4.8 mmol/L (3.3-5.1); Sodium 137 mmol/L (135-145); Total Protein 7.8 g/dL (6.5-8.0)
--- NOTE | 2023-11-19 02:00 | PC.NURSE ---
pt asking for water, informed pt, nothing to eat or drink, until CT scan was completed. Informed dr ibarra.
--- NOTE | 2023-11-19 02:30 | PC.NURSE ---
pt back from ct scan at this time, ct was completed
--- NOTE | 2023-11-19 02:45 | PC.NURSE ---
informed dr ibarra of pt's temp and wanting pain meds
[2023-11-19] MEDS: Morphine Sulfate 2 MG/ML CARTRIDGE 1 MG IVPUSH (03:10)
--- NOTE | 2023-11-19 03:20 | PC.NURSE ---
when asked, when was the last time, she had a BM, pt states, when I was in the hospital, they gave me an enema
[2023-11-19] MEDS: ceFAZolin Sodium/Dextrose,Iso 2 GM/50 ML PIGGYBACK IV ×3 (03:53→19:55)
[2023-11-19 04:29] LABS: Appearance Urine Clear; Color Urine Yellow; Glucose Urine UA Negative (Negative); Leukocyte Esterase Urine Negative (Negative); Nitrite Urine Negative (Negative); PH 5.5 (5.0-9.0); Specific Gravity - Urine 1.015 (1.005-1.025); Urine Blood Negative (Negative); Urine Ketones Negative (Negative); Urine Protein Trace mg/dL (Neg-Trace)
--- NOTE | 2023-11-19 06:11 | PC.NURSE ---
resting quietly on stretcher at this time, pt is not yelling, or moaning. chest rise and fall noted. pt given water to drink at this time,
--- NOTE | 2023-11-19 06:18 | PC.NURSE ---
pt drank a cup of water, and did not vomit. Pt then c/o of abd pain
--- NOTE | 2023-11-19 07:00 | PC.NURSE ---
report given to Fatimah BARRY
--- NOTE | 2023-11-19 07:30 | PC.NURSE ---
Assumed care of patient at 0700 patient in room stretcher, noted to be having 9/10 abd pain, patient noted to be febrile- pending admission. ED doctor ordered tylenol and morphine, medicated per APR. patient respirations equal and unlabored, skin dry and intact. VSS
[2023-11-19] MEDS: Morphine Sulfate 4 MG/ML CARTRIDGE IVPUSH ×2 (07:55→11:55)
[2023-11-19] MEDS: Acetaminophen 325 MG TABLET 650 MG PO (07:56)
--- NOTE | 2023-11-19 08:37 | P.HPHOSP_ITS ---
History of Present Illness Date of Service: 11/19/23 Attending physician on admission: Poli [facility] Chief Complaint: upper abd pain 67 yo F with a pmhx of IDDM, CKD s/p kidney transplant, HLD, HTN, GERD, and mild intermittent asthma, currently being treated for osteomyelitis/diskitis T7 with cefazolin TID via PICC line, with upper abd pain and constipation x2 weeks. admitted to [facility] 1 weeks ago for ?gastroparesis and constiaption given 1 enema 6 days ago, minimal result, and no BM since. very uncomfortable, generalized abd pain, more severe in RUQ. constant 8-9/10 stabbing pain, worse with movement and eating. intractable nausea with minimal bilious vomiting. no heme. heartburn and GERD worse than baseline. reports fever and chills x2 weeks and new congestion today. Review of Systems 2 Constitutional: Constitutional: Reports chills and Reports fever(s) Eyes: Eyes: Denies change in vision and Reports loss of peripheral vision ENT: Reports Normal hearing present and Reports nasal congestion Cardiovascular: Cardiovascular: Reports Abdominal Distension, Reports Epigastric Pain and Denies dyspnea Respiratory: Respiratory: Denies cough and Denies dyspnea Gastrointestinal: Gastrointestinal: Reports as per HPI, Reports abdominal pain, Reports constipation, Reports heartburn, Reports nausea and Reports vomiting Genitourinary: Genitourinary: Denies dysuria Musculoskeletal: Musculoskeletal: Reports back pain Neurologic: Reports Normal hearing present [facility] Medical History CKD (chronic kidney disease) Asthma exacerbation High cholesterol Diabetes HTN (hypertension) Bronchitis Functional capacity: independent ambulation Surgical History (Updated 12/14/21 @ 00:02 by Anne Burden) Renal transplant recipient Kidney transplant recipient Social History Household Members: Family Housing: House Do you presently have visiting nurse or other home services: No Alcohol intake: never Patient Tobacco Use Status: Never used Tobacco Smoked in Last 30 Days: No Use of substances other than those prescribed or required for medical reasons: No Advance Directives: No Advance Directives Information Provided: No Do you have a plan to hurt others: No Plan service: No Current occupational status: unemployed Meds Allergies Allergy/AdvReac Type Severity Reaction Status Date / Time Penicillins Allergy Mild RASH Verified 11/18/23 22:26 hydrocodone [From Vicodin] Allergy Stomach Verified 11/18/23 22:26 Upset losartan AdvReac Intermediate Headache,Di Verified 11/18/23 22:26 zziness Home Medications ?Medication ?Instructions ?Recorded ?Confirmed ?Last Taken ?Type atorvastatin 40 mg tablet 1 tab PO BEDTIME 02/21/21 11/19/23 12/02/21 History dorzolamide 22.3 mg-timolol 6.8 1 drp ophthalmic (eye) BID 02/21/21 11/19/23 12/02/21 History mg/mL eye drops insulin glargine 100 unit/mL (3 35 unit subcut DAILY 02/21/21 11/19/23 12/02/21 History mL) subcutaneous pen (Lantus Solostar U-100 Insulin) insulin lispro 100 unit/mL 16 unit subcut TIDAC 02/21/21 11/19/23 12/02/21 History subcutaneous pen (Humalog KwikPen (U-100) Insulin) latanoprost 0.005 % eye drops 1 drp ophthalmic (eye) BEDTIME 02/21/21 11/19/23 12/02/21 History mycophenolate sodium 180 mg 1 tab PO BID 02/21/21 11/19/23 12/02/21 History tablet,delayed release oxycodone-acetaminophen 5 mg-325 1 tab PO QID PRN pain 02/21/21 11/19/23 Unknown History mg tablet tacrolimus 1 mg capsule, 2 cap PO BEDTIME 02/21/21 11/19/23 12/02/21 History immediate-release aspirin 81 mg tablet,delayed 81 mg PO DAILY 12/03/21 11/19/23 11/18/23 History release brimonidine 0.2 % eye drops 1 drp ophthalmic-Right TID 12/03/21 11/19/23 12/02/21 History carvedilol 25 mg tablet 1 tab PO BID 12/03/21 11/19/23 12/02/21 History furosemide 40 mg tablet 1 tab PO DAILY 12/03/21 11/19/23 12/02/21 History pregabalin 150 mg capsule 1 cap PO BID 12/03/21 11/19/23 12/02/21 History tacrolimus 1 mg capsule, 3 mg PO DAILY 12/03/21 11/19/23 12/02/21 History immediate-release ammonium lactate 12 % topical cream 1 appl topical DAILY PRN foot 11/19/23 11/19/23 Unknown History infection cefazolin 2 gram solution for 2 g IV Q8H 11/19/23 11/19/23 Unknown History injection cilostazol 50 mg tablet 50 mg PO BID 11/19/23 11/19/23 Unknown History ergocalciferol (vitamin D2) 1,250 1,250 mcg PO SA 11/19/23 11/19/23 11/16/23 History mcg (50,000 unit) capsule isosorbide mononitrate 30 mg 30 mg PO DAILY 11/19/23 11/19/23 Unknown History tablet,extended release 24 hr metoclopramide HCl 5 mg tablet 5 mg PO TIDAC 11/19/23 11/19/23 Unknown History pantoprazole 40 mg tablet,delayed 40 mg PO DAILY@0630 11/19/23 11/19/23 Unknown History release silver sulfadiazine 1 % topical 1 appl topical DAILY PRN foot 11/19/23 11/19/23 Unknown History cream infection Physical Exam 2 Vital Signs and Narrative: Vital Signs: Last Vital Signs Temp 100.6 F H 11/19/23 07:27 Pulse 81 11/19/23 07:27 Resp 16 11/19/23 07:27 BP 194/71 H 11/19/23 07:27 Pulse Ox 92 11/19/23 07:27 O2 Del Method Nasal Cannula 11/19/23 07:27 O2 Flow Rate 2 11/19/23 07:27 Oxygen Flow Rate 2 11/18/23 22:24 BMI result Body Mass Index 37.8 const: A+Ox3, appears uncomfortable, vomiting small amounts during interview, feels warm cardio: RRR, no M, no LE edema pulm: CTA B/L abd: distended, tympanic throughout, tenderness throughout with light palpation Neuro: Cranial nerves: Yes Normal hearing present Results Labs 11/18/23 23:46 11/18/23 23:46 Labs: Laboratory Results - last 24 hr 11/18/23 11/19/23 23:46 04:23 MCV 92.7 MCH 29.4 MCHC 31.7 RDW 13.2 Plt Count 242 D MPV 10.9 Immature Gran % (Auto) 0.3 Neut % (Auto) 66.6 Lymph % (Auto) 21.2 [place] % (Auto) 9.7 Eos % (Auto) 1.5 Baso % (Auto) 0.7 Lymph # (Auto) 1.4 [place] # (Auto) 0.7 Eos # (Auto) 0.1 Baso # (Auto) 0.1 Abs Immat Gran (auto) 0.02 Absolute Neuts (auto) 4.5 Absolute Nucleated RBC 0.000 Nucleated RBC % (auto) 0.0 Anion Gap 16 Estim Creat Clear Calc 46.8 Estimated GFR 44 Random Glucose 161 H Lactic Acid 0.6 Calcium 9.4 Magnesium 1.9 Total Bilirubin 0.3 Direct Bilirubin 0.2 AST 12 ALT < 5 Alkaline Phosphatase 118 H Troponin I High Sens 7.9 Total Protein 7.8 Albumin 3.5 Lipase 7 L Urine Color Yellow Urine Appearance Clear Urine pH 5.5 Ur Specific [place] 1.015 Urine Protein Trace Urine Glucose (UA) Negative Urine Ketones Negative Urine Blood Negative Urine Nitrite Negative Ur Leukocyte Esterase Negative Imaging Radiologist's Impressions: Impressions Chest X-Ray 11/18/23 22:51 IMPRESSION: *No subphrenic free intraperitoneal gas identified. *Low lung volumes and bibasilar platelike atelectasis. *Right upper extremity PICC terminating within the right atrium. Electronically signed by: Liborio Feng MD 11/19/2023 12:11 AM [facility] Abdomen/Pelvis CT 11/19/23 00:00 Impression: 1. Findings suspicious for T7-T8 discitis-osteomyelitis. Partial visualization of endplate erosion and paraspinous soft tissue inflammatory changes adjacent to the T7-T8 intervertebral disc space. These findings are only partially included in the image field of view and extends beyond the superior margin of the field of view. 2. Right lower quadrant transplant kidney without evidence of hydronephrosis or perinephric fluid collections. Marked atrophy of the [place] kidneys. Electronically signed by: Liborio Feng MD 11/19/2023 03:30 AM [facility] Assessment and Plan (1) Abdominal pain: Status: Acute (2) Osteomyelitis: Status: Acute Plan 67 yo F with a pmhx of IDDM, CKD s/p kidney transplant, HLD, HTN, GERD, and mild intermittent asthma, currently being treated for osteomyelitis/diskitis T7 with cefazolin TID via PICC line, with upper abd pain and constipation x2 weeks. abd pain - generalized with nausea and vomiting ?gastroparesis and constipation. can be referred from T7-T8 diskitis - CT negative for GI findings - CBC no infection, lipase ok, LFTs normal - UA negative - enema for constipation - pt declined - GI consult- add relistor, dulcolax, continue miralax. bladder scan due to large bladder on CT. - continue zofran PRN for nausea, metoclopramine 5mg TID osteomyelitis/diskitis T7 now also T8 on CT - continue cefazolin TID IDDM - SSI - hold Lantus due to lack of PO intake - hold jardiance - diabetic diet CKD s/p transplant - continue tacrolimus and mycophenolate HTN - unable to tolerate PO meds, add hydralazine 10mg IV BID, restart carvedilol when tolerated - hold furosemide, carvedilol and losartan GERD - continue famotidine and pantoprazole when tolerated PO anemia- likely due to CKD - check iron, B12, folate full code VTE prophy: pneumoboots and lovenox. medical need for admission due to intractable pain, nausea and vomiting. Quality Stroke Does the patient have a stroke diagnosis?: No VTE Prior VTE?: No VTE Risk Level:: Medical - moderate - high VTE Device Contraindication: N/A - Device Ordered VTE Drug Contraindication: N/A - Med Ordered
[2023-11-19 08:42] LABS: Influenza A PCR NEGATIVE (Negative); Influenza B PCR NEGATIVE (Negative); Resp Syncy Virus RNA Qual PCR NEGATIVE (Negative); SARS COV2 PCR INHOUSE NEGATIVE (Negative)
--- NOTE | 2023-11-19 09:09 | PC.NURSE ---
patient noted to be afebrile. resting quietly, resp even and unlabored. report given to Raquel BARRY
--- NOTE | 2023-11-19 09:20 | MHC.CM.ED ---
Received notification from [facility] of [facility] that patient is active with their agency. Return referral made in [facility] so agency can follow for d/c needs.
--- NOTE | 2023-11-19 09:24 | PC.NURSE ---
pt currently sleeping, pt noted to be hypertensive otherwise stable vitals, rr equal/non labored, pt awaiting admit/hospitalist, call [place] within reach, will continue with plan of care.
[2023-11-19] MEDS: Enoxaparin Sodium 40 MG/0.4 ML SYRINGE SUBCUT (09:53)
--- NOTE | 2023-11-19 09:57 | PC.NURSE ---
this nurse attempted to give enema, pt refused and stated No im not doing that now will notify the provider
[2023-11-19] MEDS: polyethylene glycoL 3350 17 GM POWD.PACK PO (10:53)
[2023-11-19] MEDS: ondansetron HCL 4 MG/2 ML VIAL IVPUSH (10:53)
--- NOTE | 2023-11-19 10:53 | PHA.MEDREC ---
Addendum entered by Sejal Lopez [facility] 11/19/23 12:29: Spoke to patient's family member at bedside who had list. Stated patient no longer takes gabapentin, jardiance, or losartan. Also noted that cilostazol was 50mg BID instead of 100mg BID; patoprazole only once daily. Addendum entered by Sejal Lopez [facility] 11/19/23 11:09: Completed med rec based on claim history for time being; once sister calls back need clarification on whether or not patient takes baby aspirin and on what day of the week her vitamin D is taken. Original Note: Pharmacy Consult ? Medication Reconciliation Pharmacy has completed the medication reconciliation. Tried speaking to patient a few times this morning and patient was very sleepy and last time I went in, patient requested we come back later. I called the patient sister Lauren and she was not home at the moment but states when she gets home she will call us back to confirm if her sister is till not available to talk.
--- NOTE | 2023-11-19 10:54 | PC.NURSE ---
pt medicated per order, pt requesting pain medications, will notify provider as tylenol didnt help, will contact transport to [facility] in[facility] bed as well.
[2023-11-19] MEDS: Metoclopramide HCl 10 MG/2 ML VIAL 5 MG IVPUSH ×2 (11:55→19:55)
--- NOTE | 2023-11-19 12:02 | PC.NURSE ---
pt medicated for 10/10 pain, GI at bedside speaking with patient. family member at bedside stating they have a med list- pharmacy was called and will come get the med list
--- NOTE | 2023-11-19 12:05 | PM.GICN ---
History of Present Illness Data of Consult Service Date: 11/19/23 Requesting physician: Poli [facility] Primary Care Provider: Alvaro Augustine III, MD HPI Reason for consult: abdominal pain 67 yo F with a hx of IDDM, CKD s/p kidney transplant, HLD, HTN, GERD, remote cocaine use and mild intermittent asthma, who I am seeing for assessment of abdominal pain Patient has had burning diffuse abdominal pain 10/10 in severity radiating from her back, worse with movement and food and relieved by po pain meds. She also noted worsening abdominal distention and and constipation with last bowel habit being 1 week ago. She had just been d/c'ed from [facility] after being dx with osteomyelitis/diskitis T7 with cefazolin TID via PICC line insitu. she denies urine sx. She does admit to chronic percocet use for chronic back pain and also regal for gastroparesis. She has chronic heartburn and takes PPI. she has noted nausea. She had EGD and colonoscopy 2 yrs ago, but cant give much details. she denies using cocaine recently. Review of Systems Review of Systems: Constitutional : No Weight loss, No Fever, No Chills ENT/Mouth : No sore throat, No Rhinorrhea Eyes: No Swelling, No Redness Cardiovascular : No Chest Pain, No SOB, No Edema Respiratory : No Cough, No Sputum, No Wheezing Gastrointestinal : see HPI Genitourinary : NO Dysuria, No Urinary Frequency, No Hematuria, No Urgency Musculoskeletal : + joint pain, No Myalgias, No Joint Swelling Skin : No Skin Lesions, No rash Neuro : + Weakness, No Numbness, No Dizziness, No Headache Psych : No Anxiety/Panic, No Depression Heme/Lymph: No Bruising, No Lymphadenopathy Endocrine : No Polyuria, No Polydipsia All other systems reviewed and are negative. [facility] Past Medical History Medical History CKD (chronic kidney disease) Asthma exacerbation High cholesterol Diabetes HTN (hypertension) Bronchitis Family History Pertinent family history: no FH of colon cancer -ulcers Surgical History Surgical History (Updated 12/14/21 @ 00:02 by Anne Burden) Renal transplant recipient Kidney transplant recipient Social History Social History Household Members: Family Housing: House Do you presently have visiting nurse or other home services: No Alcohol intake: never Patient Tobacco Use Status: Never used Tobacco Smoked in Last 30 Days: No Use of substances other than those prescribed or required for medical reasons: No Advance Directives: No Advance Directives Information Provided: No Do you have a plan to hurt others: No Plan Nutrition Risks: No Nutritional Risk service: No Current occupational status: unemployed Meds Allergies Allergy/AdvReac Type Severity Reaction Status Date / Time Penicillins Allergy Mild RASH Verified 11/18/23 22:26 hydrocodone [From Vicodin] Allergy Stomach Verified 11/18/23 22:26 Upset losartan AdvReac Intermediate Headache,Di Verified 11/18/23 22:26 zziness Active Medications: Current Medications Acetaminophen (Acetaminophen 325 Mg Tablet) 650 mg PO Q6H PRN PRN Reason: Pain, Mild (Pain Scale 1-3), fever or headache Albuterol Sulfate (Albuterol Sulfate 90 Mcg 8 Gm Inhaler) 2 puff INHALE Q4-6H PRN PRN Reason: shortness of breath or wheezing Atorvastatin Calcium (Atorvastatin Calcium 40 Mg Tablet) 40 mg PO BEDTIME [facility] Brimonidine Tartrate (Brimonidine Tartrate 0.2% Oph 5 Ml Bottle) 1 drop EYE-RIGHT TID [facility] Calcium Carbonate (Calcium Carbonate 750 Mg Tab.Chew) 750 mg PO Q4H PRN PRN Reason: Heartburn Carvedilol (Carvedilol 25 Mg Tablet) 25 mg PO BID [facility]; Protocol Cilostazol (Cilostazol 100 Mg Tablet) 100 mg PO BID [facility] Dorzolamide/Timolol (Dorzolamide/Timolo 2.23%/0.68% 10 Ml Drbtl) 1 drop EYE-BOTH BID [facility] Enoxaparin Sodium (Enoxaparin Sodium 40 Mg/0.4 Ml Syringe) 40 mg SUBCUT Q24H [facility] Last Admin: 11/19/23 09:53 Dose: 40 mg Glucose (Glucose Gel 15 Gm Gel..Gram.) 15 gm PO Q15M PRN; Protocol PRN Reason: per Hypoglycemia Standing Ord. Cefazolin Sodium/Dextrose (Ancef) 2 gm in 50 mls @ 100 mls/hr IV Q8H [facility] Dextrose (D10) 250 mls @ 750 mls/hr IV Q15M PRN; Protocol PRN Reason: per Hypoglycemia Standing Ord. Isosorbide Mononitrate (Isosorbide Mononitrate 30 Mg Tab.Er.24h) 30 mg PO DAILY [facility]; Protocol Latanoprost (Latanoprost 0.005 % Ophth [place] 2.5 Ml Drops) 1 drop EYE-BOTH BEDTIME [facility] Magnesium Hydroxide (Milk Of Magnesia 30 Ml Oral.Susp) 30 ml PO DAILY PRN PRN Reason: Constipation Melatonin (Melatonin 3 Mg Tablet) 6 mg PO BEDTIME PRN PRN Reason: Insomnia Metoclopramide HCl (Metoclopramide Hcl 10 Mg/2 Ml Vial) 5 mg IVPUSH Q8H [facility] Last Admin: 11/19/23 11:55 Dose: 5 mg Morphine Sulfate (Morphine Sulfate 4 Mg/Ml Cartridge) 4 mg IVPUSH Q4H PRN; Protocol PRN Reason: Pain, Severe (Pain Scale 7-10) Last Admin: 11/19/23 11:55 Dose: 4 mg Non-Formulary Medication (Pantoprazole) 40 mg PO BID@0630,1630 [facility] Non-Formulary Medication (Mycophenolate Sodium) 1 tab PO BID [facility] Ondansetron HCl (Ondansetron Hcl 4 Mg/2 Ml Vial) 4 mg IVPUSH Q8H PRN PRN Reason: Nausea and Vomiting Last Admin: 11/19/23 10:53 Dose: 4 mg Polyethylene Glycol (Polyethylene Glycol 3350 17 Gm Powd.Pack) 17 gm PO DAILY [facility] Last Admin: 11/19/23 10:53 Dose: 17 gm Pregabalin (Pregabalin 150 Mg Capsule) 150 mg PO BID [facility] Sodium Chloride (0.9 % Sodium Chloride Flush 3 Ml Syringe) 3 ml IVFLUSH QSHIFT [facility] Tacrolimus (Tacrolimus 1 Mg Capsule) 2 mg PO BEDTIME [facility] Tacrolimus (Tacrolimus 1 Mg Capsule) 3 mg PO DAILY [facility] Home Medications ?Medication ?Instructions ?Recorded ?Confirmed ?Last Taken ?Type atorvastatin 40 mg tablet 1 tab PO BEDTIME 02/21/21 11/19/23 12/02/21 History dorzolamide 22.3 mg-timolol 6.8 1 drp ophthalmic (eye) BID 02/21/21 11/19/23 12/02/21 History mg/mL eye drops insulin glargine 100 unit/mL (3 35 unit subcut DAILY 02/21/21 11/19/23 12/02/21 History mL) subcutaneous pen (Lantus Solostar U-100 Insulin) insulin lispro 100 unit/mL 16 unit subcut TIDAC 02/21/21 11/19/23 12/02/21 History subcutaneous pen (Humalog KwikPen (U-100) Insulin) latanoprost 0.005 % eye drops 1 drp ophthalmic (eye) BEDTIME 02/21/21 11/19/23 12/02/21 History mycophenolate sodium 180 mg 1 tab PO BID 02/21/21 11/19/23 12/02/21 History tablet,delayed release oxycodone-acetaminophen 5 mg-325 1 tab PO QID PRN pain 02/21/21 11/19/23 Unknown History mg tablet tacrolimus 1 mg capsule, 2 cap PO BEDTIME 02/21/21 11/19/23 12/02/21 History immediate-release aspirin 81 mg tablet,delayed 81 mg PO DAILY 12/03/21 11/19/23 11/18/23 History release brimonidine 0.2 % eye drops 1 drp ophthalmic-Right TID 12/03/21 11/19/23 12/02/21 History carvedilol 25 mg tablet 1 tab PO BID 12/03/21 11/19/23 12/02/21 History furosemide 40 mg tablet 1 tab PO DAILY 12/03/21 11/19/23 12/02/21 History pregabalin 150 mg capsule 1 cap PO BID 12/03/21 11/19/23 12/02/21 History tacrolimus 1 mg capsule, 3 mg PO DAILY 12/03/21 11/19/23 12/02/21 History immediate-release ammonium lactate 12 % topical cream 1 appl topical DAILY PRN foot 11/19/23 11/19/23 Unknown History infection cefazolin 2 gram solution for 2 g IV Q8H 11/19/23 11/19/23 Unknown History injection cilostazol 50 mg tablet 50 mg PO BID 11/19/23 11/19/23 Unknown History ergocalciferol (vitamin D2) 1,250 1,250 mcg PO SA 11/19/23 11/19/23 11/16/23 History mcg (50,000 unit) capsule isosorbide mononitrate 30 mg 30 mg PO DAILY 11/19/23 11/19/23 Unknown History tablet,extended release 24 hr metoclopramide HCl 5 mg tablet 5 mg PO TIDAC 11/19/23 11/19/23 Unknown History pantoprazole 40 mg tablet,delayed 40 mg PO DAILY@0630 11/19/23 11/19/23 Unknown History release silver sulfadiazine 1 % topical 1 appl topical DAILY PRN foot 11/19/23 11/19/23 Unknown History cream infection Physical Exam Vital Signs: Vital Signs: Last Vital Signs Temp 99.9 F 11/19/23 09:06 Pulse 79 11/19/23 09:06 Resp 16 11/19/23 09:06 BP 192/66 H 11/19/23 09:06 Pulse Ox 92 11/19/23 09:06 O2 Del Method Room Air 11/19/23 09:06 O2 Flow Rate 2 11/19/23 07:27 Oxygen Flow Rate 2 11/18/23 22:24 BMI result Body Mass Index 37.8 EXAM: GENERAL: The patient is dishevelled VITAL SIGNS:see workflow HEENT: Nonicteric sclerae, PERRLA, EOMI. Oropharynx clear. Moist mucous membranes. Conjunctivae appear well perfused. No thyroid mass. CHEST: Chest wall is nontender. HEART: Regular rate and rhythm without murmurs. LUNGS: Clear to auscultation bilaterally. ABDOMEN: Soft, positive bowel sounds, tender diffusely, no organomegaly.no flank tenderness--distended abdomen, SKIN: No rash, no excessive bruising, petechiae, or purpura. NEUROLOGIC: Cranial nerves II-XII intact without motor/sensory deficit. Psych: normal affect tender thoracic spine Results Labs 11/18/23 23:46 11/18/23 23:46 Labs: Short CBC 11/18/23 Range/Units 23:46 WBC 6.7 (4.8-10.8) X10*3/uL Hgb 8.9 L D (12.0-16.0) g/dl Hct 28.1 L (37.0-47.0) % Plt Count 242 D (160-400) X10*3/uL BMP 11/18/23 23:46 Sodium 137 Potassium 4.8 Chloride 106 Carbon Dioxide 20 L BUN 35 H Creatinine 1.23 Calcium 9.4 Liver Function 11/18/23 Range/Units 23:46 Total Bilirubin 0.3 (0.0-1.0) mg/dL Direct Bilirubin 0.2 (0.0-0.5) mg/dL AST 12 (5-31) U/L ALT < 5 (0-31) U/L Alkaline Phosphatase 118 H (39-117) U/L Albumin 3.5 (3.5-5.0) g/dL Urine 11/19/23 Range/Units 04:23 Urine Color Yellow Urine Appearance Clear Urine pH 5.5 (5.0-9.0) Ur Specific [place] 1.015 (1.005-1.025) Urine Protein Trace (Neg-Trace) mg/dL Urine Glucose (UA) Negative (Negative) mg/dL Imaging CT scan - abdomen: Attestation: I personally reviewed and interpreted this imaging study as follows: (distended bladder, moderate constipation, atherosclerosis, atrophic kidneys, transplanted kidney ) Assessment and Plan (1) Abdominal pain: Qualifiers: Abdominal location: generalized Qualified Code(s): R10.84 - Generalized abdominal pain Status: Acute Plan 1/ Pain could be referred pain from spine and discitis given worse with movement, but she has other conditions such as constipation and gastroparesis which maybe playing a role. Stress gastritis also possible, 2/ Anemia, no overt GI bleeding probably anemia of chronic disease from CKD and discitis PLAN: 1/ Cont with reglan as doing 2/ miralax bid and add dulcolax, can consider relistor for opiate induced constipation 3/ bladder scan given distended appearance on imaging and distended abdomen 4/ check iron indices and b12, folate, tox screen to see if ongoing drug use 5/ can consider adding TCA or gabapentin for pain Procedures Date of Service Date of Service: 11/19/23
--- NOTE | 2023-11-19 12:59 | PC.NURSE ---
called pharmacy for missing medications
[2023-11-19 13:03] LABS: Glucose, Whole Blood 170 mg/dL (60-115)
[2023-11-19] MEDS: Dorzolamide/Timolo 2.23%/0.68% 10 ML DRBTL 1 DROP EYE-BOTH ×2 (13:16→22:26)
[2023-11-19 13:55] LABS: Iron 11 mcg/dL (30-160); Percent Iron Saturation 8 % (15-50); Total Iron Binding Capacity 144 mcg/dL (228-428); Unsaturated Iron Binding 133 ug/dL
[2023-11-19 14:21] LABS: Folate 12.6 ng/mL (> or = 4.0); Vitamin B12 468 pg/mL (200-900)
--- NOTE | 2023-11-19 14:35 | PC.NURSE ---
pt had large formed BM, hospitalist is aware as they were here in the ED. Also, medication that the hospitalist had me hold earlier, they have decided to have this nurse administer, called pharmacy for the medication which is not in the pyxis.
[2023-11-19] MEDS: hydrALAZINE HCl 20 MG/ML VIAL 10 MG IVPUSH ×2 (14:41→21:34)
[2023-11-19] MEDS: Brimonidine Tartrate 0.2% Oph 5 ML BOTTLE 1 DROP EYE-RIGHT ×2 (14:43→22:26)
[2023-11-19] MEDS: Tacrolimus 1 MG CAPSULE 3 MG PO (14:44)
[2023-11-19] MEDS: oxyCODONE HCl Immed Release 5 MG TABLET PO ×2 (14:56→21:40)
--- NOTE | 2023-11-19 15:29 | PC.NURSE ---
pt has been medicated for pain, pt now yelling stating she now has 10/10 back pain, this nurse tiger texted provider.
[2023-11-19] MEDS: 0.9 % Sodium Chloride Flush 3 ML SYRINGE IVFLUSH ×2 (15:37→19:56)
[2023-11-19] MEDS: HYDROmorphone HCl 2 MG/ML VIAL 1 MG IVPUSH ×2 (15:55→19:55)
--- NOTE | 2023-11-19 15:59 | PC.NURSE ---
pt medicated for 10/10 back pain per new orders
[2023-11-19 16:44] LABS: Glucose, Whole Blood 218 mg/dL (60-115)
[2023-11-19 20:18] LABS: Glucose, Whole Blood 205 mg/dL (60-115)
[2023-11-19] MEDS: Insulin Lispro 100 UNIT/ML 3 ML VIAL SUBCUT (21:39)
[2023-11-19] MEDS: carvediloL 25 MG TABLET PO (21:39)
[2023-11-19] MEDS: Atorvastatin Calcium 40 MG TABLET PO (21:41)
[2023-11-19] MEDS: bisacodyL 5 MG TABLET.DR PO (21:41)
[2023-11-19] MEDS: cilostazoL 50 MG TABLET PO (21:41)
[2023-11-19] MEDS: Pregabalin 150 MG CAPSULE PO (21:41)
[2023-11-19] MEDS: Tacrolimus 1 MG CAPSULE 2 MG PO (21:41)
[2023-11-19] MEDS: Mycophenolate Sodium 180 MG TABLET.DR PO (21:41)
[2023-11-20] VITALS (9 sets, daily range): BP systolic 119–198; BP diastolic 49–84; PULSE 63–86; RESP 18–24; TEMP 36.4–37.7; O2SAT 92–97
--- NOTE | 2023-11-20 | ECG_ITS ---
Test Reason : chest pain Blood Pressure : / mmHG Vent. Rate : 085 BPM Atrial Rate : 085 BPM P-R Int : 144 ms QRS Dur : 112 ms QT Int : 364 ms P-R-T Axes : 028 -29 111 degrees QTc Int : 433 ms Normal sinus rhythm Left ventricular hypertrophy with repolarization abnormality ( R in aVL , [place] product ) Abnormal ECG When compared with ECG of 18-NOV-2023 23:25, Premature supraventricular complexes are no longer Present Referred By: James Larsen Electronically Signed By:SUE CATHERINE
--- NOTE | 2023-11-20 | ECG_ITS ---
Test Reason : Chest pain, Elevated Troponin Blood Pressure : / mmHG Vent. Rate : 075 BPM Atrial Rate : 075 BPM P-R Int : 152 ms QRS Dur : 118 ms QT Int : 394 ms P-R-T Axes : 042 -26 110 degrees QTc Int : 439 ms Normal sinus rhythm Left ventricular hypertrophy with QRS widening and repolarization abnormality ( R in aVL , Geoffrey product ) Abnormal ECG When compared with ECG of 20-NOV-2023 04:04, No significant change was found Referred By: Poli Willams Electronically Signed By:SUE CATHERINE
--- NOTE | 2023-11-20 | ECG_ITS ---
Test Reason : Rhythm changes Blood Pressure : / mmHG Vent. Rate : 078 BPM Atrial Rate : 000 BPM P-R Int : 000 ms QRS Dur : 122 ms QT Int : 392 ms P-R-T Axes : 000 -25 111 degrees QTc Int : 446 ms Atrial fibrillation Left ventricular hypertrophy with QRS widening and repolarization abnormality ( R in aVL , Cotter product ) Abnormal ECG When compared with ECG of 20-NOV-2023 09:45, Atrial fibrillation has replaced Sinus rhythm Referred By: James Larsen Electronically Signed By:SUE CATHERINE
--- NOTE | 2023-11-20 03:42 | PC.NURSE ---
Addendum entered by Lauren Abraham RN 11/20/23 05:51: AT 0357, S[employer]IOR [employer] did a routine vitals and pt was awaken from sleep, she then started to c/o mid sternal pain going to the left side of the chest, pt started to be restless and crying, also noted with O2 sats at 78% RA, O2 started at 5L/min via NC, O2 sats slow went up to 90-93%, Dr. Toussaint was notified, coached pt with deep and slow breathing, STAT EKG done and tracing was forwarded to Dr. Toussaint, NTG 0.4 SL given x2 with no effect, STAT CXR ordered Radiology was called and came, prn Morphine IV, given and p slowly went to sleep, pt was put on school bus monitor showing SR with BBB at 70s- 80s, labs drawn through PICC, Troponin came critical at 78.2, MD was aware. Original Note: Pt was overheard at start of the shift , crying loudly c/o back pain 11/27, hypertensive, rest of vitals WNL, not due for prn Diluadid til 2200,also c/o nausea, alert and oriented, also noted with PICC line on the RUE, Dr. Toussaint was updated, Dr. Toussaint ordered to give PRN Dilaudid, PICC line ok to use as per MD, Dilaudid given with short time effect, rest of night meds given, pt slept after.
[2023-11-20] MEDS: Metoclopramide HCl 10 MG/2 ML VIAL 5 MG IVPUSH ×3 (04:01→20:36)
[2023-11-20] MEDS: ceFAZolin Sodium/Dextrose,Iso 2 GM/50 ML PIGGYBACK IV ×3 (04:02→20:35)
[2023-11-20] MEDS: Nitroglycerin 0.4 MG TAB.SUBL SUBLINGUAL ×2 (04:08→04:19)
[2023-11-20] MEDS: Morphine Sulfate 4 MG/ML CARTRIDGE IVPUSH ×5 (04:29→22:32)
--- NOTE | 2023-11-20 04:35 | PM.EVENT ---
Event Note Date of Service: 11/20/23 Event Note: 3:56 AM - Contacted by nursing to notify pt started to experience sudden onset of CP and that O2 sats dropped to 78% on RA. She was placed on 5L/min. ECG obtained stat and showed no acute ischemic changes. Nitroglycerin 0.4 mg SL X2 given without improvement. 4:25 AM - On evaluation pt was sitting in bed moaning due to pain. She is localizing her pain in the right thoracic area (lateral aspect) with radiating to the right inframammary area. Her pain started upon waking up for VS this morning. Did not report significant SOB. Mentioned she has hx of blocked artery . Cardiopulmonary exam is unremarkable. O2 flow decreased to 3L/min and keeping O2 sat of 93%. She is requesting morphine IV for pain. I do feel her pain is referred pain from her back (discitis, osteomyelitis T7-T8). Her low O2 sats are likely due to hypoventilation (possible underlying sleep apnea) as she has been getting morphine and oxycodone for pain. Blood workup including troponin is pending. Oxygen flow to be titrated until discontinuation.. Time Spent With Patient Time: Total time managing care of this patient today ____ minutes.
[2023-11-20 05:16] LABS: MANUAL DIFF FLAG NO
[2023-11-20 05:17] LABS: Basophils Absolute Auto 0.1 X10*3/uL (0.0-0.2); Basophils Percent Auto 0.6 % (0-2); Hematocrit 26.5 % (37.0-47.0); Hemoglobin 8.6 g/dl (12.0-16.0); Imm Gran Abs Auto 0.03 X10*3/uL (0.00-0.03); Imm Gran Pct Auto 0.3 % (0.0-0.4); Lymphocytes Absolute Auto 1.1 X10*3/uL (1.2-4.9); Lymphocytes Percent Auto 11.2 % (20-40); Mean Corpuscular HGB Conc 32.5 g/dl (31.0-35.0); Mean Corpuscular Hemoglobin 29.8 pg (27.0-33.0); Mean Corpuscular Volume 91.7 fL (80.0-98.0); Mean Platelet Volume 10.7 fL (9.4-12.3); Monocytes Absolute Auto 0.7 X10*3/uL (0.1-1.2); Monocytes Percent Auto 7.5 % (2-11); Neutrophils Absolute Auto 7.8 x10*3/uL (2.0-8.3); Neutrophils Percent Auto 80.4 % (45-73); Platelet Count 249 X10*3/uL (160-400); Red Blood Count 2.89 X10*6/uL (4.20-5.50); Red Cell Distribution Width 13.4 % (11.0-16.0); White Blood Count 9.7 X10*3/uL (4.8-10.8)
[2023-11-20 05:22] LABS: INTERNATIONAL NORM RATIO 1.7 (0.9-1.1); Prothrombin Time 20.4 SEC (10.9-12.4)
[2023-11-20 05:33] LABS: Anion Gap 15 (12-20); Blood Urea Nitrogen 30 mg/dL (9-16); Calcium 9.5 mg/dL (8.4-10.2); Carbon Dioxide 19 mmol/L (22-29); Chloride 106 mmol/L (96-108); Creatinine Clr Calc Pharmacy 48.5; Estimated Glomerular Filt Rate 46; Glucose Random 194 mg/dL (60-115); Potassium 4.3 mmol/L (3.3-5.1); Sodium 136 mmol/L (135-145)
[2023-11-20 05:49] LABS: Troponin-I High Sensitivity 78.2 ng/L (<3.5-17.0)
--- NOTE | 2023-11-20 07:00 | CA_ITS ---
Transthoracic Echocardiogram Patient (Last, First, Middle): Marjorie Hensley, Gender: Female Date of : 1955 Age: 67 Procedure Date: 11/20/2023 Procedure Type: Transthoracic Echocardiogram Location: S3E Height: 154.94 cm Weight: 89.36 kg BSA: 1.88 m2 Heart Rate: bpm BP: 168 / 72 mmHg Infantryman: Referring MD: Poli Willams MD Symptoms: chest pain, elevated troponin Study Quality: Adequate ECG Rhythm: Sinus Conclusions: - Normal left ventricular size and systolic function. There is severely increased left ventricular wall thickness. The visually estimated ejection fraction is between 60-65%. - Elevated filling pressures. - Normal right ventricular cavity size and systolic function. - Mildly elevated right atrial pressure. - Mild pulmonary hypertension is present. Findings Left Ventricle Normal left ventricular size and systolic function. There is severely increased left ventricular wall thickness. The visually estimated ejection fraction is between 60-65%. There is no evidence of regional wall motion abnormalities. Abnormal diastolic function is noted. Spectral Doppler is indicative of a pseudonormal filling pattern. Elevated filling pressures. Right Ventricle Normal right ventricular cavity size and systolic function. Atria The left atrium is mildly dilated. Aortic Valve Normal aortic valve structure and function. There is no aortic valve stenosis. There is no aortic valve regurgitation. Mitral Valve The mitral valve appears normal. There is trace mitral valve regurgitation. There is no mitral valve stenosis. Pulmonic Valve The pulmonic valve is normal. There is no pulmonic valve regurgitation. Tricuspid Valve Normal tricuspid valve structure. There is no tricuspid valve regurgitation. The right ventricular systolic pressure is 46 mmHg. Mildly elevated right atrial pressure. Mild pulmonary hypertension is present. Great Vessels All visible segments of the aorta are normal in size. The visualized portions of the pulmonary artery and branches are normal. Venous The inferior vena cava is dilated and collapses greater than 50% with inspiration. Pericardium/Pleural There is no evidence of pericardial effusion. Prior Study Comparison No prior study available for comparison. Measurements 2D Linear Measurements IVSd: 1.40 0.6-0.9/0.6-1.0 cm LVIDd: 3.84 3.9-5.3/4.2-5.9 cm LVIDd Index: 2.04 2.4-3.2/2.2-3.1 cm/m2 LVIDs: 2.51 2.0-3.6 cm LVPWd: 1.40 0.7-1.1 cm Ao Root: 2.80 2.1-3.5 cm LA Diam: 4.20 2.7-3.8/3.0-4.0 cm LAIDs Index: 2.23 1.5-2.3 cm/m2 LV Mass: 245.58 67-162/88-224 g LV Mass Index: 130.63 43-95/49-115 g/m2 LVOT Diam: 2.00 3.0+(-)1.3 cm Mitral Valve MV Pk E: 1.10 MV PK A: 0.73 MV Decel Time: 153.00 E/A: 1.50 E'Lateral: 6.09 E'Medial: 5.11 E/E' Med: 21.50 E/E' Lat: 18.10 PHT: 45.00 MVA PHT: 4.89 Decel Eaton: 7.16 Aortic Valve AoV Pk Yousuf: 1.74 AoV Mn Yousuf: 1.04 AoV VTI: 0.35 AoV Pk Grad: 12.00 Aov Mn Grad: 5.00 KING Cont.VTI: 2.32 LVOT LVOT Pk Yousuf: 1.14 LVOT Mn Yousuf: 0.75 LVOT VTI: 0.26 LVOT Pk Grad: 5.00 LVOT Mn Grad: 3.00 LVOT Diam: 2.00 LVOT Area: 3.14 Diastolic Function MV Pk E: 1.10 MV Pk A: 0.73 E/A: 1.50 E'Medial: 5.11 E/E' Med: 21.50 E' Laterial: 6.09 E/E' Lat: 18.10 Right Ventricle TAPSE (mm): 26.00 TVS' Yousuf: 12.00 Tricuspid Valve TR Pk Yousuf: 3.26 TR Pk Grad: 43.00 RA Press: 3.00 RVSP: 46.00 Great Vessels Aorta Ao Root-2D: 2.80 2.0-3.7 cm Ao Asc: 2.90 2.1-3.4 cm Pulmonary Valve PV Pk Yousuf: 1.14 Peak PV Grad: 5.00 Updated in Other Vendor System with Status of Final Bill Anders MD electronically signed on 11/21/2023 8:43:18 PM with status of Final
[2023-11-20] MEDS: Aspirin 81 MG TAB.CHEW 162 MG PO (07:09)
[2023-11-20 07:23] LABS: Glucose, Whole Blood 183 mg/dL (60-115)
[2023-11-20] MEDS: Insulin Lispro 100 UNIT/ML 3 ML VIAL SUBCUT ×4 (08:11→20:36)
[2023-11-20] MEDS: 0.9 % Sodium Chloride Flush 3 ML SYRINGE IVFLUSH ×3 (08:20→20:35)
[2023-11-20] MEDS: Pantoprazole Sodium 40 MG/10 ML VIAL IVPUSH (08:21)
[2023-11-20] MEDS: Tacrolimus 1 MG CAPSULE 3 MG PO (08:22)
[2023-11-20] MEDS: Enoxaparin Sodium 40 MG/0.4 ML SYRINGE SUBCUT (08:24)
[2023-11-20] MEDS: carvediloL 25 MG TABLET PO ×2 (08:25→20:37)
[2023-11-20] MEDS: Mycophenolate Sodium 180 MG TABLET.DR PO ×2 (08:25→20:38)
[2023-11-20] MEDS: cilostazoL 50 MG TABLET PO ×2 (08:25→20:38)
[2023-11-20] MEDS: Isosorbide Mononitrate 30 MG TAB.ER.24H PO (08:26)
[2023-11-20] MEDS: polyethylene glycoL 3350 17 GM POWD.PACK PO (08:26)
[2023-11-20] MEDS: hydrALAZINE HCl 20 MG/ML VIAL 10 MG IVPUSH (08:29)
[2023-11-20] MEDS: Pregabalin 150 MG CAPSULE PO ×2 (08:30→20:38)
[2023-11-20] MEDS: Calcium Carbonate 750 MG TAB.CHEW PO (08:36)
--- NOTE | 2023-11-20 08:56 | PC.NURSE ---
Pt c/o sternal pain same as throughout the night . Md Willams at bedside phlebotomy recently harvey shaheen ,medicated with morphine . will monitor
[2023-11-20] MEDS: Brimonidine Tartrate 0.2% Oph 5 ML BOTTLE 1 DROP EYE-RIGHT ×2 (09:07→16:05)
[2023-11-20] MEDS: Dorzolamide/Timolo 2.23%/0.68% 10 ML DRBTL 1 DROP EYE-BOTH (09:07)
--- NOTE | 2023-11-20 09:26 | P.PNIM_ITS ---
Subjective Subjective Date of Service: 11/20/23 Interval History: Her abdominal pain and back have improved, she had a large bm yesterday she complaint of chest pain early this morning, ECG showed no acute ischemic changes, yet troponin i was up to 78 and repeat is pending Physical Exam 2 Vital Signs: Vital Signs: Last Vital Signs Temp 99.9 F 11/20/23 07:08 Pulse 86 11/20/23 08:25 Resp 24 H 11/20/23 07:08 BP 168/72 H 11/20/23 08:29 Pulse Ox 97 11/20/23 07:08 O2 Del Method Nasal Cannula 11/20/23 07:08 O2 Flow Rate 2 11/20/23 07:08 Oxygen Flow Rate 2 11/18/23 22:24 BMI result Body Mass Index 37.4 Const: Other: General: AO X 3, no acute distress Resp: CTA bilateral CVS: S1,S2,RRR GI: +BS, NT, no distention Skin: No rash Neuro: motor grossly intact Psych: appropriate affect Objective Data Active Medications Acetaminophen (Acetaminophen 325 Mg Tablet) 650 mg PO Q6H PRN PRN Reason: Pain, Mild (Pain Scale 1-3), fever or headache Albuterol Sulfate (Albuterol Sulfate 90 Mcg 8 Gm Inhaler) 2 puff INHALE Q4H PRN PRN Reason: shortness of breath or wheezing Aspirin (Aspirin Enteric Coated 81 Mg Tablet.) 81 mg PO DAILY [facility] Last Admin: 11/20/23 08:43 Dose: Not Given Documented By: ESTHELA Non-Admin Reason: PER MD WADE Atorvastatin Calcium (Atorvastatin Calcium 40 Mg Tablet) 40 mg PO BEDTIME [facility] Last Admin: 11/19/23 21:41 Dose: 40 mg Documented By: NIMO Bisacodyl (Bisacodyl 5 Mg Tablet.) 5 mg PO BEDTIME [facility] Last Admin: 11/19/23 21:41 Dose: 5 mg Documented By: NIMO Brimonidine Tartrate (Brimonidine Tartrate 0.2% Oph 5 Ml Bottle) 1 drop EYE- RIGHT TID [facility] Last Admin: 11/20/23 09:07 Dose: 1 drop Documented By: ESTHELA Calcium Carbonate (Calcium Carbonate 750 Mg Tab.Chew) 750 mg PO Q4H PRN PRN Reason: Heartburn Last Admin: 11/20/23 08:36 Dose: 750 mg Documented By: ESTHELA Carvedilol (Carvedilol 25 Mg Tablet) 25 mg PO BID [facility]; Protocol Last Admin: 11/20/23 08:25 Dose: 25 mg Documented By: ESTHELA Cilostazol (Cilostazol 50 Mg Tablet) 50 mg PO BID [facility] Last Admin: 11/20/23 08:25 Dose: 50 mg Documented By: ESTHELA Dorzolamide/Timolol (Dorzolamide/Timolo 2.23%/0.68% 10 Ml Drbtl) 1 drop EYE- BOTH BID [facility] Last Admin: 11/20/23 09:07 Dose: 1 drop Documented By: ESTHELA Enoxaparin Sodium (Enoxaparin Sodium 40 Mg/0.4 Ml Syringe) 40 mg SUBCUT Q24H [facility] Last Admin: 11/20/23 08:24 Dose: 40 mg Documented By: ESTHELA Ergocalciferol (Ergocalciferol (Vitamin D2) 1,250 Mcg Capsule) 1,250 mcg PO [facility] Glucose (Glucose Gel 15 Gm Gel..Gram.) 15 gm PO Q15M PRN; Protocol PRN Reason: per Hypoglycemia Standing Ord. Hydralazine HCl (Hydralazine Hcl 20 Mg/Ml Vial) 10 mg IVPUSH BID [facility]; Protocol Last Admin: 11/20/23 08:29 Dose: 10 mg Documented By: ESTHELA Cefazolin Sodium/Dextrose (Ancef) 2 gm in 50 mls @ 100 mls/hr IV Q8H [facility] Last Infusion: 11/20/23 04:52 Dose: Infused Documented By: CASTILAlicja Dextrose (D10) 250 mls @ 750 mls/hr IV Q15M PRN; Protocol PRN Reason: per Hypoglycemia Standing Ord. Influenza Virus Vaccine (Flu Vacc [id number](6mos Up)/Pf 0.5 Ml Syringe) 0.5 ml IM .ONCE ONE Stop: 11/20/23 10:01 Insulin Human Lispro (Insulin Lispro 100 Unit/Ml 3 Ml Vial) 0 unit SUBCUT QIDACHS [facility]; Protocol Last Admin: 11/20/23 08:11 Dose: 2 unit Documented By: ESTHELA Isosorbide Mononitrate (Isosorbide Mononitrate 30 Mg Tab.Er.24h) 30 mg PO DAILY [facility]; Protocol Last Admin: 11/20/23 08:26 Dose: 30 mg Documented By: ESTHELA Lactic Acid (Ammonium Lactate 12 % Cream 140 Gm Tube) 1 appl TOPICAL DAILY PRN; Protocol PRN Reason: foot infection Latanoprost (Latanoprost 0.005 % Ophth Loree 2.5 Ml Drops) 1 drop EYE-BOTH BEDTIME [facility] Last Admin: 11/19/23 22:28 Dose: Not Given Documented By: NIMO Non-Admin Reason: Med Not Available Magnesium Hydroxide (Milk Of Magnesia 30 Ml Oral.Susp) 30 ml PO DAILY PRN PRN Reason: Constipation Melatonin (Melatonin 3 Mg Tablet) 6 mg PO BEDTIME PRN PRN Reason: Insomnia Methylnaltrexone [place] (Methylnaltrexone [place] 12 Mg/0.6 Ml Syringe) 12 mg SUBCUT DAILY [facility] Last Admin: 11/20/23 08:28 Dose: 12 mg Documented By: ESTHELA Metoclopramide HCl (Metoclopramide Hcl 10 Mg/2 Ml Vial) 5 mg IVPUSH Q8H [facility] Last Admin: 11/20/23 04:01 Dose: 5 mg Documented By: NIMO Morphine Sulfate (Morphine Sulfate 4 Mg/Ml Cartridge) 4 mg IVPUSH Q4H PRN; Protocol PRN Reason: Pain, Severe (Pain Scale 7-10) Last Admin: 11/20/23 08:36 Dose: 4 mg Documented By: ESTHELA Mycophenolate Sodium (Mycophenolate Sodium 180 Mg Tablet.Dr) 180 mg PO BID [facility] Last Admin: 11/20/23 08:25 Dose: 180 mg Documented By: ESTHELA Nitroglycerin (Nitroglycerin 0.4 Mg Tab.Subl) 0.4 mg SUBLINGUAL Q5MX3 PRN PRN Reason: Chest Pain Last Admin: 11/20/23 04:19 Dose: 0.4 mg Documented By: NIMO Ondansetron HCl (Ondansetron Hcl 4 Mg/2 Ml Vial) 4 mg IVPUSH Q6H PRN PRN Reason: Nausea and Vomiting Oxycodone HCl (Oxycodone Hcl Immed Release 5 Mg Tablet) 5 mg PO QID PRN PRN Reason: Pain, Moderate(Pain Scale 4-6) Last Admin: 11/19/23 21:40 Dose: 5 mg Documented By: NIMO Pantoprazole Sodium (Pantoprazole Sodium 40 Mg/10 Ml Vial) 40 mg IVPUSH DAILY@0630 [facility] Last Admin: 11/20/23 08:21 Dose: 40 mg Documented By: ESTHELA Polyethylene Glycol (Polyethylene Glycol 3350 17 Gm Powd.Pack) 17 gm PO DAILY [facility] Last Admin: 11/20/23 08:26 Dose: 17 gm Documented By: ESTHELA Pregabalin (Pregabalin 150 Mg Capsule) 150 mg PO BID [facility] Last Admin: 11/20/23 08:30 Dose: 150 mg Documented By: ESTHELA Silver Sulfadiazine (Silver Sulfadiazine 1 % Cream 20 Gm Tube) 1 appl TOPICAL DAILY PRN PRN Reason: foot infection Sodium Chloride (0.9 % Sodium Chloride Flush 3 Ml Syringe) 3 ml IVFLUSH QSHIFT [facility] Last Admin: 11/20/23 08:20 Dose: 3 ml Documented By: ESTHELA Tacrolimus (Tacrolimus 1 Mg Capsule) 2 mg PO BEDTIME [facility] Last Admin: 11/19/23 21:41 Dose: 2 mg Documented By: NIMO Tacrolimus (Tacrolimus 1 Mg Capsule) 3 mg PO DAILY [facility] Last Admin: 11/20/23 08:22 Dose: 3 mg Documented By: ESTHELA Labs 11/20/23 05:11 11/20/23 05:11 Labs: Laboratory Results - last 24 hr 11/19/23 11/19/23 11/19/23 13:00 13:12 16:40 MCV MCH MCHC RDW Plt Count MPV Immature Gran % (Auto) Neut % (Auto) Lymph % (Auto) [place] % (Auto) Eos % (Auto) Baso % (Auto) Lymph # (Auto) [place] # (Auto) Eos # (Auto) Baso # (Auto) Abs Immat Gran (auto) Absolute Neuts (auto) Absolute Nucleated RBC Nucleated RBC % (auto) PT INR Anion Gap Estim Creat Clear Calc Estimated GFR POC Glucose 170 H 218 H Random Glucose Calcium Iron 11 L TIBC 144 L % Saturation 8 L Unsat Iron Binding 133 Troponin I High Sens Vitamin B12 468 Folate 12.6 11/19/23 11/20/23 11/20/23 20:14 05:11 07:19 MCV 91.7 MCH 29.8 MCHC 32.5 RDW 13.4 Plt Count 249 MPV 10.7 Immature Gran % (Auto) 0.3 Neut % (Auto) 80.4 H Lymph % (Auto) 11.2 L [place] % (Auto) 7.5 Eos % (Auto) 0.0 Baso % (Auto) 0.6 Lymph # (Auto) 1.1 L [place] # (Auto) 0.7 Eos # (Auto) 0.0 Baso # (Auto) 0.1 Abs Immat Gran (auto) 0.03 Absolute Neuts (auto) 7.8 Absolute Nucleated RBC 0.000 Nucleated RBC % (auto) 0.0 PT 20.4 H INR 1.7 H Anion Gap 15 Estim Creat Clear Calc 48.5 Estimated GFR 46 POC Glucose 205 H 183 H Random Glucose 194 H Calcium 9.5 Iron TIBC % Saturation Unsat Iron Binding Troponin I High Sens 78.2 H* D Vitamin B12 Folate Assessment and Plan (1) Osteomyelitis: Status: Acute (2) Abdominal pain: Status: Acute (3) Gastroparesis: Status: Acute (4) CKD (chronic kidney disease) stage 3, GFR 30-59 ml/min: Status: Acute Plan 67 yo F with a pmhx of IDDM, CKD s/p kidney transplant, HLD, HTN, GERD, and mild intermittent asthma, currently being treated for osteomyelitis/diskitis T7 with cefazolin TID via PICC line, with upper abd pain and constipation x2 weeks. Chest pain, no ischemic channges on ECG, troponin 78-->110 -continue ASA, statin, BB, cardiology consult pending -get an echo, repeat ecg abd pain - generalized with nausea and vomiting ?gastroparesis and constipation. can be referred from T7-T8 diskitis--overall better, - CT negative for acute GI findings - CBC no infection, lipase ok, LFTs normal - UA negative - bowel regimen including enema as needed - GI consult recommends relistor, dulcolax, continue miralax. bladder scan due to large bladder on CT. - continue zofran PRN for nausea, metoclopramine 5mg TID osteomyelitis/diskitis T7 now also T8 on CT - continue cefazolin TID via PICC line IDDM - SSI - resume Lantus at 20 (35 at home) - hold jardiance - diabetic diet CKD s/p transplant, Creatine within nl - continue tacrolimus and mycophenolate HTN - unable to tolerate PO meds, add hydralazine 10mg IV BID, restart carvedilol when tolerated - hold furosemide, continue carvedilol, imdure GERD - continue famotidine and pantoprazole when tolerated PO anemia- likely due to CKD, B12, Folate normal full code VTE prophy: pneumoboots and lovenox. medical need for admission due to intractable pain, nausea and vomiting. Quality Stroke Does the patient have a stroke diagnosis?: No VTE Prior VTE?: No VTE Risk Level:: Medical - moderate - high VTE Device Contraindication: N/A - Device Ordered VTE Drug Contraindication: N/A - Med Ordered
[2023-11-20 09:36] LABS: Troponin-I High Sensitivity 110.3 ng/L (<3.5-17.0)
[2023-11-20] MEDS: Insulin Glargine,Hum.rec.anlog 100 UNIT/ML 10 ML VIAL 20 UNIT SUBCUT (10:19)
[2023-11-20] MEDS: Flu Vacc TS2024-25(6mos up)/PF 0.5 ML SYRINGE IM (10:20)
--- NOTE | 2023-11-20 10:40 | PM.CNCAR ---
History of Present Illness History of Present Illness Date of Service: 11/20/23 Requesting physician: Poli Willams Chief complaint: abd pain, chest pain Narrative: [age] year female with history of gastroparesis, osteomyelitis involving the spine and reported history of coronary artery disease with previous PCI many years ago. She follows with Dr. Frida Moffett at [facility]. She has history of renal transplant and currently is on immunosuppressive medicines. She also has hypertension, hyperlipidemia, gastroesophageal reflux disease and asthma. Osteomyelitis was involving the T7 vertebra and she is on cefazolin 3 times a day. She presented with abdominal pain with significant constipation. CT scan did not show any other acute pathology and after having a bowel movement today she is feeling better from abdominal pain point of view. She is complaining of right-sided and left-sided sharp chest pain which has been ongoing since yesterday. She is saying she was getting it at home to but it was not this severe. She clearly has point tenderness over the right side of her lower ribs. This pain is pleuritic in nature and gets worse when she takes deep breaths or coughs. No fevers otherwise. Blood pressure is elevated. She is saying this pain is something new and at the time she had previous stenting she did not have similar pain. [facility] Past Medical History Medical History (Updated 11/20/23 @ 10:44 by Bill Anders MD) HTN (hypertension) CKD (chronic kidney disease) Asthma exacerbation High cholesterol Diabetes Bronchitis Surgical History Surgical History (Updated 12/14/21 @ 00:02 by Anne Burden) Renal transplant recipient Kidney transplant recipient Social History Social History Household Members: Spouse and Children Housing: House Do you presently have visiting nurse or other home services: Yes Alcohol intake: never Patient Tobacco Use Status: Never used Tobacco Second Hand Smoke Exposure: No service: No Current occupational status: unemployed Meds Allergies Allergy/AdvReac Type Severity Reaction Status Date / Time Penicillins Allergy Mild RASH Verified 11/18/23 22:26 hydrocodone [From Vicodin] Allergy Stomach Verified 11/18/23 22:26 Upset losartan AdvReac Intermediate Headache,Di Verified 11/18/23 22:26 zziness Active Medications: Current Medications Acetaminophen (Acetaminophen 325 Mg Tablet) 650 mg PO Q6H PRN PRN Reason: Pain, Mild (Pain Scale 1-3), fever or headache Albuterol Sulfate (Albuterol Sulfate 90 Mcg 8 Gm Inhaler) 2 puff INHALE Q4H PRN PRN Reason: shortness of breath or wheezing Aspirin (Aspirin Enteric Coated 81 Mg Tablet.) 81 mg PO DAILY [facility] Last Admin: 11/20/23 08:43 Dose: Not Given Atorvastatin Calcium (Atorvastatin Calcium 40 Mg Tablet) 40 mg PO BEDTIME [facility] Last Admin: 11/19/23 21:41 Dose: 40 mg Bisacodyl (Bisacodyl 5 Mg Tablet.) 5 mg PO BEDTIME [facility] Last Admin: 11/19/23 21:41 Dose: 5 mg Brimonidine Tartrate (Brimonidine Tartrate 0.2% Oph 5 Ml Bottle) 1 drop EYE-RIGHT TID [facility] Last Admin: 11/20/23 09:07 Dose: 1 drop Calcium Carbonate (Calcium Carbonate 750 Mg Tab.Chew) 750 mg PO Q4H PRN PRN Reason: Heartburn Last Admin: 11/20/23 08:36 Dose: 750 mg Carvedilol (Carvedilol 25 Mg Tablet) 25 mg PO BID [facility]; Protocol Last Admin: 11/20/23 08:25 Dose: 25 mg Cilostazol (Cilostazol 50 Mg Tablet) 50 mg PO BID [facility] Last Admin: 11/20/23 08:25 Dose: 50 mg Dorzolamide/Timolol (Dorzolamide/Timolo 2.23%/0.68% 10 Ml Drbtl) 1 drop EYE-BOTH BID [facility] Last Admin: 11/20/23 09:07 Dose: 1 drop Enoxaparin Sodium (Enoxaparin Sodium 40 Mg/0.4 Ml Syringe) 40 mg SUBCUT Q24H [facility] Last Admin: 11/20/23 08:24 Dose: 40 mg Ergocalciferol (Ergocalciferol (Vitamin D2) 1,250 Mcg Capsule) 1,250 mcg PO [facility] Glucose (Glucose Gel 15 Gm Gel..Gram.) 15 gm PO Q15M PRN; Protocol PRN Reason: per Hypoglycemia Standing Ord. Cefazolin Sodium/Dextrose (Ancef) 2 gm in 50 mls @ 100 mls/hr IV Q8H [facility] Last Infusion: 11/20/23 04:52 Dose: Infused Dextrose (D10) 250 mls @ 750 mls/hr IV Q15M PRN; Protocol PRN Reason: per Hypoglycemia Standing Ord. Insulin Glargine (Insulin Glargine,Hum.Rec.Anlog 100 Unit/Ml 10 Ml Vial) 20 unit SUBCUT DAILY [facility] Last Admin: 11/20/23 10:19 Dose: 20 unit Insulin Human Lispro (Insulin Lispro 100 Unit/Ml 3 Ml Vial) 0 unit SUBCUT QIDACHS [facility]; Protocol Last Admin: 11/20/23 08:11 Dose: 2 unit Isosorbide Mononitrate (Isosorbide Mononitrate 30 Mg Tab.Er.24h) 30 mg PO DAILY [facility]; Protocol Last Admin: 11/20/23 08:26 Dose: 30 mg Lactic Acid (Ammonium Lactate 12 % Cream 140 Gm Tube) 1 appl TOPICAL DAILY PRN; Protocol PRN Reason: foot infection Latanoprost (Latanoprost 0.005 % Ophth Loree 2.5 Ml Drops) 1 drop EYE-BOTH BEDTIME [facility] Last Admin: 11/19/23 22:28 Dose: Not Given Lidocaine (Lidocaine 4 % Patch Adh..Patch) 1 patch TRANSDERMA DAILY [facility]; Protocol Magnesium Hydroxide (Milk Of Magnesia 30 Ml Oral.Susp) 30 ml PO DAILY PRN PRN Reason: Constipation Melatonin (Melatonin 3 Mg Tablet) 6 mg PO BEDTIME PRN PRN Reason: Insomnia Methylnaltrexone [place] (Methylnaltrexone [place] 12 Mg/0.6 Ml Syringe) 12 mg SUBCUT DAILY [facility] Last Admin: 11/20/23 08:28 Dose: 12 mg Metoclopramide HCl (Metoclopramide Hcl 10 Mg/2 Ml Vial) 5 mg IVPUSH Q8H [facility] Last Admin: 11/20/23 04:01 Dose: 5 mg Morphine Sulfate (Morphine Sulfate 4 Mg/Ml Cartridge) 4 mg IVPUSH Q4H PRN; Protocol PRN Reason: Pain, Severe (Pain Scale 7-10) Last Admin: 11/20/23 08:36 Dose: 4 mg Mycophenolate Sodium (Mycophenolate Sodium 180 Mg Tablet.Dr) 180 mg PO BID [facility] Last Admin: 11/20/23 08:25 Dose: 180 mg Nitroglycerin (Nitroglycerin 0.4 Mg Tab.Subl) 0.4 mg SUBLINGUAL Q5MX3 PRN PRN Reason: Chest Pain Last Admin: 10/02/24 04:19 Dose: 0.4 mg Ondansetron HCl (Ondansetron Hcl 4 Mg/2 Ml Vial) 4 mg IVPUSH Q6H PRN PRN Reason: Nausea and Vomiting Oxycodone HCl (Oxycodone Hcl Immed Release 5 Mg Tablet) 5 mg PO QID PRN PRN Reason: Pain, Moderate(Pain Scale 4-6) Last Admin: 11/19/23 21:40 Dose: 5 mg Pantoprazole Sodium (Pantoprazole Sodium 40 Mg/10 Ml Vial) 40 mg IVPUSH DAILY@0630 [facility] Last Admin: 11/20/23 08:21 Dose: 40 mg Polyethylene Glycol (Polyethylene Glycol 3350 17 Gm Powd.Pack) 17 gm PO DAILY [facility] Last Admin: 11/20/23 08:26 Dose: 17 gm Pregabalin (Pregabalin 150 Mg Capsule) 150 mg PO BID [facility] Last Admin: 11/20/23 08:30 Dose: 150 mg Silver Sulfadiazine (Silver Sulfadiazine 1 % Cream 20 Gm Tube) 1 appl TOPICAL DAILY PRN PRN Reason: foot infection Sodium Chloride (0.9 % Sodium Chloride Flush 3 Ml Syringe) 3 ml IVFLUSH QSHIFT [facility] Last Admin: 11/20/23 08:20 Dose: 3 ml Tacrolimus (Tacrolimus 1 Mg Capsule) 2 mg PO BEDTIME [facility] Last Admin: 11/19/23 21:41 Dose: 2 mg Tacrolimus (Tacrolimus 1 Mg Capsule) 3 mg PO DAILY [facility] Last Admin: 11/20/23 08:22 Dose: 3 mg Home Medications ?Medication ?Instructions ?Recorded ?Confirmed ?Last Taken ?Type atorvastatin 40 mg tablet 1 tab PO BEDTIME 02/21/21 11/19/23 12/02/21 History dorzolamide 22.3 mg-timolol 6.8 1 drp ophthalmic (eye) BID 02/21/21 11/19/23 12/02/21 History mg/mL eye drops insulin glargine 100 unit/mL (3 35 unit subcut DAILY 02/21/21 11/19/23 12/02/21 History mL) subcutaneous pen (Lantus Solostar U-100 Insulin) insulin lispro 100 unit/mL 16 unit subcut TIDAC 02/21/21 11/19/23 12/02/21 History subcutaneous pen (Humalog KwikPen (U-100) Insulin) latanoprost 0.005 % eye drops 1 drp ophthalmic (eye) BEDTIME 02/21/21 11/19/23 12/02/21 History mycophenolate sodium 180 mg 1 tab PO BID 02/21/21 11/19/23 12/02/21 History tablet,delayed release oxycodone-acetaminophen 5 mg-325 1 tab PO QID PRN pain 02/21/21 11/19/23 Unknown History mg tablet tacrolimus 1 mg capsule, 2 cap PO BEDTIME 02/21/21 11/19/23 12/02/21 History immediate-release aspirin 81 mg tablet,delayed 81 mg PO DAILY 12/03/21 11/19/23 11/18/23 History release brimonidine 0.2 % eye drops 1 drp ophthalmic-Right TID 12/03/21 11/19/23 12/02/21 History carvedilol 25 mg tablet 1 tab PO BID 12/03/21 11/19/23 12/02/21 History furosemide 40 mg tablet 1 tab PO DAILY 12/03/21 11/19/23 12/02/21 History pregabalin 150 mg capsule 1 cap PO BID 12/03/21 11/19/23 12/02/21 History tacrolimus 1 mg capsule, 3 mg PO DAILY 12/03/21 11/19/23 12/02/21 History immediate-release ammonium lactate 12 % topical cream 1 appl topical DAILY PRN foot 11/19/23 11/19/23 Unknown History infection cefazolin 2 gram solution for 2 g IV Q8H 11/19/23 11/19/23 Unknown History injection cilostazol 50 mg tablet 50 mg PO BID 11/19/23 11/19/23 Unknown History ergocalciferol (vitamin D2) 1,250 1,250 mcg PO SA 11/19/23 11/19/23 11/16/23 History mcg (50,000 unit) capsule isosorbide mononitrate 30 mg 30 mg PO DAILY 11/19/23 11/19/23 Unknown History tablet,extended release 24 hr metoclopramide HCl 5 mg tablet 5 mg PO TIDAC 11/19/23 11/19/23 Unknown History pantoprazole 40 mg tablet,delayed 40 mg PO DAILY@0630 11/19/23 11/19/23 Unknown History release silver sulfadiazine 1 % topical 1 appl topical DAILY PRN foot 11/19/23 11/19/23 Unknown History cream infection Physical Exam Vital Signs: Vital Signs: Last Vital Signs Temp 99.9 F 11/20/23 07:08 Pulse 86 11/20/23 08:25 Resp 24 H 11/20/23 07:08 BP 168/72 H 11/20/23 08:29 Pulse Ox 97 11/20/23 07:08 O2 Del Method Nasal Cannula 11/20/23 07:08 O2 Flow Rate 2 11/20/23 07:08 Oxygen Flow Rate 2 11/18/23 22:24 BMI result Body Mass Index 37.4 GENERAL APPEARANCE: In distress due to chest pain. NECK: no carotid bruit, no jugular venous distention. SKIN: no suspicious lesions, warm and dry. HEART: no murmurs, regular rate and rhythm. LUNGS: clear to auscultation bilaterally. Rib tenderness over the right side. ABDOMEN: soft, nontender. Distended. EXTREMITIES: no edema. PERIPHERAL PULSES: equal. NEUROLOGIC: No gross deficits, AAO X 3 Objective Labs and Meds 11/20/23 05:11 11/20/23 05:11 Lab results: Laboratory Results - last 24 hr 11/19/23 11/19/23 11/19/23 13:00 13:12 16:40 WBC RBC Hgb Hct MCV MCH MCHC RDW Plt Count MPV Immature Gran % (Auto) Neut % (Auto) Lymph % (Auto) [place] % (Auto) Eos % (Auto) Baso % (Auto) Lymph # (Auto) [place] # (Auto) Eos # (Auto) Baso # (Auto) Abs Immat Gran (auto) Absolute Neuts (auto) Absolute Nucleated RBC Nucleated RBC % (auto) PT INR Sodium Potassium Chloride Carbon Dioxide Anion Gap BUN Creatinine Estim Creat Clear Calc Estimated GFR POC Glucose 170 H 218 H Random Glucose Calcium Iron 11 L TIBC 144 L % Saturation 8 L Unsat Iron Binding 133 Troponin I High Sens Vitamin B12 468 Folate 12.6 11/19/23 11/20/23 11/20/23 20:14 05:11 07:19 WBC 9.7 RBC 2.89 L Hgb 8.6 L Hct 26.5 L MCV 91.7 MCH 29.8 MCHC 32.5 RDW 13.4 Plt Count 249 MPV 10.7 Immature Gran % (Auto) 0.3 Neut % (Auto) 80.4 H Lymph % (Auto) 11.2 L [place] % (Auto) 7.5 Eos % (Auto) 0.0 Baso % (Auto) 0.6 Lymph # (Auto) 1.1 L [place] # (Auto) 0.7 Eos # (Auto) 0.0 Baso # (Auto) 0.1 Abs Immat Gran (auto) 0.03 Absolute Neuts (auto) 7.8 Absolute Nucleated RBC 0.000 Nucleated RBC % (auto) 0.0 PT 20.4 H INR 1.7 H Sodium 136 Potassium 4.3 Chloride 106 Carbon Dioxide 19 L Anion Gap 15 BUN 30 H Creatinine 1.18 Estim Creat Clear Calc 48.5 Estimated GFR 46 POC Glucose 205 H 183 H Random Glucose 194 H Calcium 9.5 Iron TIBC % Saturation Unsat Iron Binding Troponin I High Sens 78.2 H* D Vitamin B12 Folate 11/20/23 08:03 WBC RBC Hgb Hct MCV MCH MCHC RDW Plt Count MPV Immature Gran % (Auto) Neut % (Auto) Lymph % (Auto) [place] % (Auto) Eos % (Auto) Baso % (Auto) Lymph # (Auto) [place] # (Auto) Eos # (Auto) Baso # (Auto) Abs Immat Gran (auto) Absolute Neuts (auto) Absolute Nucleated RBC Nucleated RBC % (auto) PT INR Sodium Potassium Chloride Carbon Dioxide Anion Gap BUN Creatinine Estim Creat Clear Calc Estimated GFR POC Glucose Random Glucose Calcium Iron TIBC % Saturation Unsat Iron Binding Troponin I High Sens 110.3 H* Vitamin B12 Folate Imaging Radiologist's impression: Impressions Chest X-Ray 11/20/23 05:00 IMPRESSION: Findings as above. Electronically signed by: Raphael Sandhu MD 11/20/2023 07:21 AM EDT Assessment and Plan (1) Chest pain: Status: Acute (2) Abdominal pain: Qualifiers: Abdominal location: generalized Qualified Code(s): R10.84 - Generalized abdominal pain Status: Acute (3) HTN (hypertension): Status: Acute Plan [age] year female with chronic kidney disease status post renal transplant on chronic immunosuppression and reported history of coronary disease with previous PCI many years ago presenting for abdominal pain due to constipation which has improved after receiving laxatives. She is complaining of bilateral chest pain which is sharp/stabbing in character and pleuritic. Pain is reproducible over the ribs. This is likely musculoskeletal pain. Recommend symptomatic treatment for this. She has known history of coronary disease and has very mild troponin elevation. Blood pressure is elevated and should be controlled. She also has iron-deficiency and anemia which may contribute to demand supply mismatch in her case. Overall clinical story appears to be quite atypical. We will get a limited echocardiogram to assess for any wall motion abnormalities. We will follow along with you. Thank you for allowing me to participate in the care of your patient. Please feel free to contact me if you have any questions. Procedures Date of Service Date of Service: 11/20/23
[2023-11-20] MEDS: oxyCODONE HCl Immed Release 5 MG TABLET PO ×2 (10:47→18:22)
[2023-11-20] MEDS: Acetaminophen 325 MG TABLET 650 MG PO ×2 (10:47→18:21)
[2023-11-20] MEDS: Lidocaine 4 % Patch ADH..PATCH 1 PATCH TRANSDERMA (10:48)
[2023-11-20] MEDS: LORazepam 0.5 MG TABLET PO ×2 (10:56→20:38)
[2023-11-20 11:02] LABS: Glucose, Whole Blood 224 mg/dL (60-115)
[2023-11-20] MEDS: amLODIPine Besylate 2.5 MG TABLET PO (11:08)
[2023-11-20 16:12] LABS: Glucose, Whole Blood 229 mg/dL (60-115)
--- NOTE | 2023-11-20 16:17 | MHC.CM.PN ---
IMM11/20/23 FEMALE LIVES W FAMILY WALKER ASSIST ADLS MANAGER MOBILE BSVNA LT IV ABX VIA PICC DP RESUME SERVICES IN PLACE MAY NEED ASSIST W TRANSPORT.
[2023-11-20 19:42] LABS: Glucose, Whole Blood 261 mg/dL (60-115)
[2023-11-20] MEDS: Tacrolimus 1 MG CAPSULE 2 MG PO (20:37)
[2023-11-20] MEDS: Atorvastatin Calcium 40 MG TABLET PO (20:38)
[2023-11-20] MEDS: bisacodyL 5 MG TABLET.DR PO (20:38)
[2023-11-20] MEDS: Apixaban 5 MG TABLET PO (22:32)
[2023-11-21] VITALS (7 sets, daily range): BP systolic 93–155; BP diastolic 47–63; PULSE 65–87; RESP 17–18; TEMP 36.4–36.9; O2SAT 95–100
[2023-11-21] MEDS: oxyCODONE HCl Immed Release 5 MG TABLET PO (00:28)
[2023-11-21] MEDS: ceFAZolin Sodium/Dextrose,Iso 2 GM/50 ML PIGGYBACK IV ×3 (03:04→20:55)
[2023-11-21] MEDS: Metoclopramide HCl 10 MG/2 ML VIAL 5 MG IVPUSH (03:04)
--- NOTE | 2023-11-21 04:21 | PC.NURSE ---
Addendum entered by Julita Kaplan, RN 11/21/23 04:32: Pt flipped back into sinus rhythm approx 2311. She has been having PACs. Original Note: This RN alerted by [employer] pt had flipped into afib approx 2018. Alerted who ordered stat EKG which showed pt in afib. See MAR for new orders. Pt continuing to c/o 10/28 pain. Discussed w/MD, see MAR for new orders. Pt on 2L O2 nc. She attempted to move herself to the recliner in her room. Reminded of safety measures, pt placed in recliner w/chair alarm, instructed to use call austin for when she wishes to get up again. Medicated pt w/PRN oxy, pt stated the oxy does not work; pt found sleeping shortly after. Call austin within reach, chair alarm on, frequent checks.
[2023-11-21] MEDS: Pantoprazole Sodium 40 MG/10 ML VIAL IVPUSH (05:34)
--- NOTE | 2023-11-21 07:03 | PM.EVENT ---
Event Note Date of Service: 11/21/23 Event Note: Patient developed a-fib, new onset, overnight. Treatment with Eliquis has been started. Time Spent With Patient Time: Total time managing care of this patient today ____ minutes.
[2023-11-21 07:21] LABS: Glucose, Whole Blood 111 mg/dL (60-115)
[2023-11-21 07:25] LABS: Anion Gap 12 (12-20); Blood Urea Nitrogen 42 mg/dL (9-16); Calcium 9.2 mg/dL (8.4-10.2); Carbon Dioxide 21 mmol/L (22-29); Chloride 101 mmol/L (96-108); Creatinine Clr Calc Pharmacy 27.5; Estimated Glomerular Filt Rate 24; Glucose Random 130 mg/dL (60-115); Potassium 4.2 mmol/L (3.3-5.1); Sodium 130 mmol/L (135-145)
[2023-11-21 07:44] LABS: Troponin-I High Sensitivity 67.7 ng/L (<3.5-17.0)
[2023-11-21] MEDS: 0.9 % Sodium Chloride Flush 3 ML SYRINGE IVFLUSH (08:33)
[2023-11-21 08:57] LABS: ABG Base Excess -4.2 mmol/L; ABG HCO3 19 mmol/L (22-26); ABG pCO2 32 mmHg (32-45); ABG pH 7.39 (7.35-7.45); ABG pO2 91 mmHg (83-108)
[2023-11-21] MEDS: Insulin Glargine,Hum.rec.anlog 100 UNIT/ML 10 ML VIAL 20 UNIT SUBCUT (10:14)
[2023-11-21] MEDS: Apixaban 5 MG TABLET PO ×2 (10:14→20:48)
[2023-11-21] MEDS: polyethylene glycoL 3350 17 GM POWD.PACK PO (10:14)
[2023-11-21] MEDS: Pregabalin 150 MG CAPSULE PO ×2 (10:14→20:48)
[2023-11-21] MEDS: Aspirin Enteric Coated 81 MG TABLET.DR PO (10:15)
[2023-11-21] MEDS: carvediloL 25 MG TABLET PO ×2 (10:15→20:50)
[2023-11-21] MEDS: Acetaminophen 325 MG TABLET 975 MG PO ×2 (10:15→14:18)
[2023-11-21] MEDS: amLODIPine Besylate 2.5 MG TABLET PO (10:15)
[2023-11-21] MEDS: Mycophenolate Sodium 180 MG TABLET.DR PO ×2 (10:15→20:50)
[2023-11-21] MEDS: Isosorbide Mononitrate 30 MG TAB.ER.24H PO (10:15)
[2023-11-21] MEDS: cilostazoL 50 MG TABLET PO ×2 (10:15→20:49)
[2023-11-21] MEDS: Lidocaine 4 % Patch ADH..PATCH 1 PATCH TRANSDERMA (10:16)
[2023-11-21] MEDS: Dorzolamide/Timolo 2.23%/0.68% 10 ML DRBTL 1 DROP EYE-BOTH ×2 (10:27→20:59)
[2023-11-21] MEDS: Brimonidine Tartrate 0.2% Oph 5 ML BOTTLE 1 DROP EYE-RIGHT ×3 (10:27→20:59)
[2023-11-21 11:39] LABS: Glucose, Whole Blood 234 mg/dL (60-115)
[2023-11-21] MEDS: Insulin Lispro 100 UNIT/ML 3 ML VIAL SUBCUT ×2 (11:47→20:51)
--- NOTE | 2023-11-21 12:57 | HO.PM.IMPN ---
Subjective Subjective Date of Service: 11/21/23 Physical Exam Vital Signs: Vital Signs: Last Vital Signs Temp 98.5 F 11/21/23 07:50 Pulse 79 11/21/23 09:54 Resp 18 11/21/23 07:50 BP 126/49 L 11/21/23 09:54 Pulse Ox 95 11/21/23 07:50 O2 Del Method Nasal Cannula 11/21/23 07:50 O2 Flow Rate 3 11/21/23 07:50 Oxygen Flow Rate 2 11/18/23 22:24 BMI result Body Mass Index 37.4 Objective Data Active Medications Acetaminophen (Acetaminophen 325 Mg Tablet) 975 mg PO TID [facility] Last Admin: 11/21/23 10:15 Dose: 975 mg Documented By: RICKEY Albuterol Sulfate (Albuterol Sulfate 90 Mcg 8 Gm Inhaler) 2 puff INHALE Q4H PRN PRN Reason: shortness of breath or wheezing Amlodipine Besylate (Amlodipine Besylate 2.5 Mg Tablet) 2.5 mg PO DAILY [facility]; Protocol Last Admin: 11/21/23 10:15 Dose: 2.5 mg Documented By: RICKEY Apixaban (Apixaban 5 Mg Tablet) 5 mg PO BID [facility] Last Admin: 11/21/23 10:14 Dose: 5 mg Documented By: RICKEY Aspirin (Aspirin Enteric Coated 81 Mg Tablet.) 81 mg PO DAILY [facility] Last Admin: 11/21/23 10:15 Dose: 81 mg Documented By: RICKEY Atorvastatin Calcium (Atorvastatin Calcium 40 Mg Tablet) 40 mg PO BEDTIME [facility] Last Admin: 11/20/23 20:38 Dose: 40 mg Documented By: OLIVER Bisacodyl (Bisacodyl 5 Mg Tablet.) 5 mg PO BEDTIME [facility] Last Admin: 11/20/23 20:38 Dose: 5 mg Documented By: OLIVER Brimonidine Tartrate (Brimonidine Tartrate 0.2% Oph 5 Ml Bottle) 1 drop EYE-RIGHT TID [facility] Last Admin: 11/21/23 10:27 Dose: 1 drop Documented By: RICKEY Calcium Carbonate (Calcium Carbonate 750 Mg Tab.Chew) 750 mg PO Q4H PRN PRN Reason: Heartburn Last Admin: 11/20/23 08:36 Dose: 750 mg Documented By: ESTHELA Carvedilol (Carvedilol 25 Mg Tablet) 25 mg PO BID [facility]; Protocol Last Admin: 11/21/23 10:15 Dose: 25 mg Documented By: RICKEY Cilostazol (Cilostazol 50 Mg Tablet) 50 mg PO BID [facility] Last Admin: 11/21/23 10:15 Dose: 50 mg Documented By: RICKEY Dorzolamide/Timolol (Dorzolamide/Timolo 2.23%/0.68% 10 Ml Drbtl) 1 drop EYE-BOTH BID [facility] Last Admin: 11/21/23 10:27 Dose: 1 drop Documented By: RICKEY Ergocalciferol (Ergocalciferol (Vitamin D2) 1,250 Mcg Capsule) 1,250 mcg PO [facility] Glucose (Glucose Gel 15 Gm Gel..Gram.) 15 gm PO Q15M PRN; Protocol PRN Reason: per Hypoglycemia Standing Ord. Cefazolin Sodium/Dextrose (Ancef) 2 gm in 50 mls @ 100 mls/hr IV Q8H [facility] Last Infusion: 11/21/23 12:24 Dose: Infused Documented By: RICKEY Dextrose (D10) 250 mls @ 750 mls/hr IV Q15M PRN; Protocol PRN Reason: per Hypoglycemia Standing Ord. Insulin Glargine (Insulin Glargine,Hum.Rec.Anlog 100 Unit/Ml 10 Ml Vial) 20 unit SUBCUT DAILY [facility] Last Admin: 11/21/23 10:14 Dose: 20 unit Documented By: RICKEY Insulin Human Lispro (Insulin Lispro 100 Unit/Ml 3 Ml Vial) 0 unit SUBCUT QIDACHS [facility]; Protocol Last Admin: 11/21/23 11:47 Dose: 4 unit Documented By: RICKEY Isosorbide Mononitrate (Isosorbide Mononitrate 30 Mg Tab.Er.24h) 30 mg PO DAILY [facility]; Protocol Last Admin: 11/21/23 10:15 Dose: 30 mg Documented By: RICKEY Lactic Acid (Ammonium Lactate 12 % Cream 140 Gm Tube) 1 appl TOPICAL DAILY PRN; Protocol PRN Reason: foot infection Latanoprost (Latanoprost 0.005 % Ophth [place]oree 2.5 Ml Drops) 1 drop EYE-BOTH BEDTIME [facility] Last Admin: 11/20/23 20:52 Dose: Not Given Documented By: OLIVER Non-Admin Reason: Patient Refused Lidocaine (Lidocaine 4 % Patch Adh..Patch) 1 patch TRANSDERMA DAILY [facility]; Protocol Last Admin: 11/21/23 10:16 Dose: 1 patch Documented By: RICKEY Magnesium Hydroxide (Milk Of Magnesia 30 Ml Oral.Susp) 30 ml PO DAILY PRN PRN Reason: Constipation Melatonin (Melatonin 3 Mg Tablet) 6 mg PO BEDTIME PRN PRN Reason: Insomnia Methylnaltrexone [place] (Methylnaltrexone [place] 12 Mg/0.6 Ml Syringe) 12 mg SUBCUT DAILY [facility] Last Admin: 11/21/23 10:14 Dose: 12 mg Documented By: RICKEY Mycophenolate Sodium (Mycophenolate Sodium 180 Mg Tablet.Dr) 180 mg PO BID [facility] Last Admin: 11/21/23 10:15 Dose: 180 mg Documented By: RICKEY Nitroglycerin (Nitroglycerin 0.4 Mg Tab.Subl) 0.4 mg SUBLINGUAL Q5MX3 PRN PRN Reason: Chest Pain Last Admin: 11/20/23 04:19 Dose: 0.4 mg Documented By: NIOM Ondansetron HCl (Ondansetron Hcl 4 Mg/2 Ml Vial) 4 mg IVPUSH Q6H PRN PRN Reason: Nausea and Vomiting Oxycodone HCl (Oxycodone Hcl Immed Release 5 Mg Tablet) 5 mg PO QID PRN PRN Reason: Pain, Severe (Pain Scale 7-10) Last Admin: 11/21/23 00:28 Dose: 5 mg Documented By: OLIVER Pantoprazole Sodium (Pantoprazole Sodium 40 Mg/10 Ml Vial) 40 mg IVPUSH DAILY@0630 [facility] Last Admin: 11/21/23 05:34 Dose: 40 mg Documented By: OLIVER Polyethylene Glycol (Polyethylene Glycol 3350 17 Gm Powd.Pack) 17 gm PO DAILY [facility] Last Admin: 11/21/23 10:14 Dose: 17 gm Documented By: RICKEY Pregabalin (Pregabalin 150 Mg Capsule) 150 mg PO BID [facility] Last Admin: 11/21/23 10:14 Dose: 150 mg Documented By: RICKEY Silver Sulfadiazine (Silver Sulfadiazine 1 % Cream 20 Gm Tube) 1 appl TOPICAL DAILY PRN PRN Reason: foot infection Sodium Chloride (0.9 % Sodium Chloride Flush 3 Ml Syringe) 3 ml IVFLUSH QSHIFT [facility] Last Admin: 11/21/23 08:33 Dose: 3 ml Documented By: RICKEY Tacrolimus (Tacrolimus 1 Mg Capsule) 2 mg PO BEDTIME [facility] Last Admin: 11/20/23 20:37 Dose: 2 mg Documented By: OLIVER Tacrolimus (Tacrolimus 1 Mg Capsule) 3 mg PO DAILY [facility] Last Admin: 11/21/23 11:37 Dose: Not Given Documented By: RICKEY Non-Admin Reason: Physician Held Med Labs 11/20/23 05:11 11/21/23 05:26 Labs: Laboratory Results - last 24 hr 11/20/23 11/20/23 11/21/23 16:08 19:34 05:26 O2 Saturation ABG pH at Pt Temp ABG pCO2 at Pt Temp ABG pO2 at Pt Temp ABG HCO3 ABG Base Excess (Actual) Anion Gap 12 Estim Creat Clear Calc 27.5 Estimated GFR 24 POC Glucose 229 H 261 H Random Glucose 130 H Calcium 9.2 Magnesium 2.0 Troponin I High Sens 67.7 H* 11/21/23 11/21/23 11/21/23 07:14 08:47 11:36 O2 Saturation 99.0 ABG pH at Pt Temp 7.39 ABG pCO2 at Pt Temp 32 ABG pO2 at Pt Temp 91 ABG HCO3 19 L ABG Base Excess (Actual) -4.2 Anion Gap Estim Creat Clear Calc Estimated GFR POC Glucose 111 234 H Random Glucose Calcium Magnesium Troponin I High Sens Quality Stroke Does the patient have a stroke diagnosis?: No VTE Prior VTE?: No VTE Risk Level:: Medical - moderate - high VTE Device Contraindication: N/A - Device Ordered VTE Drug Contraindication: N/A - Med Ordered
[2023-11-21 13:46] LABS: ABG Refer to POC result
[2023-11-21] MEDS: Tacrolimus 1 MG CAPSULE 2 MG PO ×2 (14:18→21:51)
--- NOTE | 2023-11-21 15:21 | P.DS_ITS ---
DS: Providers Provider Date of Service: 11/21/23 Date of admission: 11/19/23 09:22 Date of discharge: 11/21/23 Primary care physician: Alvaro Augustine III, MD Consults: 11/19/23 09:35 Consult to Gastroenterology Routine Consulting Provider: [facility] Reason for consultation: intractable abd pain ?gastroparesis Has provider been notified: No 11/20/23 06:41 Consult to Cardiology Routine Consulting Provider: [facility] Reason for consultation: chest pain, elevated troponin Has provider been notified: Yes 11/21/23 08:19 Consult to Nephrology Routine Consulting Provider: [facility] Reason for consultation: mariam s/p renal transplant Has provider been notified: No DS: Diagnosis Discharge Diagnosis (1) Chest pain: Status: Acute (2) Abdominal pain: Status: Acute (3) HTN (hypertension): Status: Acute DS: Summary Hospital Course Hospital Course: History of presenting illness: Date of Service: 11/19/23 Attending physician on admission: [facility] Chief Complaint: upper abd pain 67 yo F with a pmhx of IDDM, CKD s/p kidney transplant in 2012, HLD, HTN, GERD, and mild intermittent asthma, currently being treated for osteomyelitis/diskitis T7 with cefazolin TID via PICC line, with upper abd pain and constipation x2 weeks. admitted to [facility] 1 weeks ago for ?gastroparesis and constiaption given 1 enema 6 days ago, minimal result, and no BM since. very uncomfortable, generalized abd pain, more severe in RUQ. constant 8-9/10 stabbing pain, worse with movement and eating. intractable nausea with minimal bilious vomiting. no heme. heartburn and GERD worse than baseline. reports fever and chills x2 weeks and new congestion today. Hospital course: 67 yo F with a pmhx of IDDM, CKD s/p kidney transplant on chronic immunosuppression, HLD, HTN, GERD, and mild intermittent asthma, currently being treated for osteomyelitis/diskitis T7 with cefazolin TID via PICC line, admitted with upper abd pain, nausea, vomiting and constipation x2 weeks,CT abdomen showed no acute GI findings,normal CBC ,lipase and LFTs ,UA unremarkable patient treated with antiemetics, laxatives including MiraLax, Dulcolax and relistor, seen by machine set up operator [employer] they agreed with above treatment plan, patient responded well to above treatment has had multiple stools, no further episodes of nausea, vomiting, recommend to minimize use of narcotics and to take high- fiber diet, will hold laxatives for now and recommend daily MiraLax and a stool softener once diarrhea resolves. During course of hospitalization patient developed bilateral chest pain, sharp stabbing in character and pleuritic, will mild troponin elevation, seen by lab associate Dr. Anders who felt pain is musculoskeletal recommended symptomatic treatment, patient has known history of coronary disease, also with iron deficiency anemia that may be contributing to demand supply mismatch, limited echocardiogram obtained report pending, continue statin, Imdur, Norvasc and aspirin, , last night patient went into new onset atrial fibrillation with stable ventricular rate, continue Coreg and aspirin , during day patient was in and out of atrial fibrillation but this afternoon converted back to normal sinus rhythm and remains in this rhythm for last several hours therefore will hold off on IV heparin drip. Acute kidney injury on CKD status post renal transplant, seen by services mgr Dr. Gonzales recommend to transfer patient to [facility] for further workup question biopsy, CT abdomen showed distended bladder noted to have elevated bladder scan, therefore Viera catheter placed for possible retention continue tacrolimus and mycophenolate, follow BMP. Osteomyelitis/diskitis T7/T8, CT abdomen and pelvis ,showed finding suspicious for T7/T8 diskitis osteomyelitis, recommend to continue cefazolin TID via PICC line as before and follow-up at [facility], as previously planned. IDDM recommend to continue Lantus, dose reduced to 16 units, baseline dose 35 units, continue diabetic diet, insulin sliding scale and monitor blood sugar q.i.d. HTN tolerating by mouth medication, continue all home medications, and follow blood pressure closely. Acute on chronic normocytic Anemia- likely due to CKD, B12 and Folate within normal range, low iron and % saturation, recommend iron supplements that might contribute to constipation and Procrit as per Nephrology. Time Attestation Discharge Coordination Time (in mins): 40 Quality: Safe Use of Opioids Does Pt have an Active Cancer Diagnosis on the Problem List?: No Quality: Stroke Does the patient have a stroke diagnosis?: No Physical Exam Vital Signs: Vital Signs: Last Vital Signs Temp 98.5 F 11/21/23 07:50 Pulse 79 11/21/23 09:54 Resp 18 11/21/23 07:50 BP 126/49 L 11/21/23 09:54 Pulse Ox 95 11/21/23 07:50 O2 Del Method Nasal Cannula 11/21/23 07:50 O2 Flow Rate 3 11/21/23 07:50 Oxygen Flow Rate 2 11/18/23 22:24 BMI result Body Mass Index 37.4 Const: Other: Gen: in no acute distress HEENT: sclera anicteric, moist mucus membranes Neck: supple Lungs: clear to auscultation bilaterally Heart: regular rate and rhythm Abd: soft, non-tender, obese Ext: Non pitting edema Skin: warm/well-perfused Neuro: alert and oriented x3, no focal findings Psych: appropriate affect DS: Data Data Completed and Pending Labs on day of discharge: Laboratory Results - last 24 hr 11/20/23 11/20/23 11/21/23 16:08 19:34 05:26 O2 Saturation ABG pH at Pt Temp ABG pCO2 at Pt Temp ABG pO2 at Pt Temp ABG HCO3 ABG Base Excess (Actual) Sodium 130 L Potassium 4.2 Chloride 101 Carbon Dioxide 21 L Anion Gap 12 BUN 42 H Creatinine 2.08 H Estim Creat Clear Calc 27.5 Estimated GFR 24 POC Glucose 229 H 261 H Random Glucose 130 H Calcium 9.2 Magnesium 2.0 Troponin I High Sens 67.7 H* 11/21/23 11/21/23 11/21/23 07:14 08:47 11:36 O2 Saturation 99.0 ABG pH at Pt Temp 7.39 ABG pCO2 at Pt Temp 32 ABG pO2 at Pt Temp 91 ABG HCO3 19 L ABG Base Excess (Actual) -4.2 Sodium Potassium Chloride Carbon Dioxide Anion Gap BUN Creatinine Estim Creat Clear Calc Estimated GFR POC Glucose 111 234 H Random Glucose Calcium Magnesium Troponin I High Sens Discharge Plan Discharge Anticipated Discharge Date/Time: 11/21/23 15:12 Patient Disposition: Xfer Acute Care Hospital Discharge Diagnosis: Acute kidney injury/status post renal transplant. Referrals: Alvaro Augustine III, MD [Primary Care Provider] - 1 Week Discharge Medications: New insulin lispro [Admelog U-100 Insulin lispro] 100 unit/mL Solution See Protocol subcut QIDACHS Qty: 10 0RF Protocol: Insulin Correction Scale Less than or equal to 110 ---- Give (units): 0 111 to 150 Give (units): 0 151 to 200 Give (units): 2 201 to 250 Give (units): 4 251 to 300 Give (units): 6 301 to 350 Give (units): 8 Greater than 350 Give (units): 10 Call MD if Blood Glucose > : 350 Continued latanoprost 0.005 % drops 1 drp ophthalmic (eye) BEDTIME atorvastatin 40 mg tablet 1 tab PO BEDTIME oxycodone-acetaminophen 5-325 mg tablet 1 tab PO QID PRN (Reason: pain) dorzolamide-timolol 22.3-6.8 mg/mL drops 1 drp ophthalmic (eye) BID tacrolimus 1 mg capsule 2 cap PO BEDTIME mycophenolate sodium 180 mg tablet,delayed release (DR/EC) 1 tab PO BID albuterol sulfate 90 mcg/actuation HFA aerosol inhaler 2 puff inhalation Q4-6H PRN (Reason: shortness of breath or wheezing) Qty: 8.5 0RF carvedilol 25 mg tablet 1 tab PO BID Rx Instructions: administer with meals brimonidine 0.2 % drops 1 drp ophthalmic-Right TID tacrolimus 1 mg capsule 3 mg PO DAILY pregabalin 150 mg capsule 1 cap PO BID aspirin 81 mg Tablet,Delayed Release (Dr/Ec) 81 mg PO DAILY cilostazol 50 mg tablet 50 mg PO BID isosorbide mononitrate 30 mg tablet extended release 24 hr 30 mg PO DAILY metoclopramide HCl 5 mg tablet 5 mg PO TIDAC pantoprazole 40 mg tablet,delayed release (DR/EC) 40 mg PO DAILY@0630 ergocalciferol (vitamin D2) 1,250 mcg (50,000 unit) capsule 1,250 mcg PO SA silver sulfadiazine 1 % Cream 1 appl TOPICAL DAILY PRN (Reason: foot infection) Rx Instructions: apply a 1.5 mm thickness ammonium lactate 12 % Cream 1 appl TOPICAL DAILY PRN (Reason: foot infection) cefazolin 2 gram Recon Soln 2 g IV Q8H Changed insulin glargine [Lantus Solostar U-100 Insulin] 100 unit/mL (3 mL) insulin pen 18 unit subcut DAILY Qty: 15 0RF Discontinued insulin lispro [Humalog KwikPen Insulin] 100 unit/mL insulin pen 16 unit subcut TIDAC Rx Instructions: with meals furosemide 40 mg tablet 1 tab PO DAILY Discharge Orders: Discharge Order (Routine); Ordered 11/21/23 Ordered By: Alvaro Davis Diet: Diabetic diet Activity on Discharge: As tolerated Stand Alone Forms: Patient Portal Discharge page Print Language: Kinyarwanda Care Plan Goals: Constipation resolved/recommend to minimize use of narcotics MARIAM /CT abdomen showed physiologically distended bladder, bladder scan 364, Viera catheter placed 500 mL of clear yellow urine drained Continue tacrolimus, level pending Health Concerns: Diabetes mellitus dose of Lantus reduced to 50% blood sugars 111 at fasting follow blood sugar q.i.d.AC Plan of Treatment: Outpatient follow-up with primary care physician call for appointment Continue follow-up with Nephrology for acute kidney injury with history of renal transplant in 2012 Assessment: As above
--- NOTE | 2023-11-21 16:14 | PM.CNNEP ---
History of Present Illness Reason for Consult Consult date: 11/21/23 Chief Complaint Chief complaint: abd pain, chest pain History of Present Illness Narrative: RTANE consulted for Kidnye Xplant management in setting of adm with abd pain and constipation Overall feeling better this am but this AM MARIAM with Scr 2.0 H/O Xplant ( LURT) 01/2013 and mainteined on tacro 3/2 and MMF. Recent [facility] hosp last month ( just d/c'd 11/15/23) with ecoli bacteremia and MSSA bacteremia w osteo of T7 PMH signif for LURT 2012, DM< CAD s/p CABG, PVD, HTN, HLD, GParesis Review of Systems Review of Systems Constitutional : No Weight loss, No Fever, No Chills ENT/Mouth : No sore throat, No Rhinorrhea Eyes: No Swelling, No Redness Cardiovascular : No Chest Pain, No SOB, No Edema Respiratory : No Cough, No Sputum, No Wheezing Gastrointestinal : see HPI Genitourinary : NO Dysuria, No Urinary Frequency, No Hematuria, No Urgency Musculoskeletal : + joint pain, No Myalgias, No Joint Swelling Skin : No Skin Lesions, No rash Neuro : + Weakness, No Numbness, No Dizziness, No Headache Psych : No Anxiety/Panic, No Depression Heme/Lymph: No Bruising, No Lymphadenopathy Endocrine : No Polyuria, No Polydipsia All other systems reviewed and are negative. Constitutional: Reports chills and Reports fever(s) Eyes: Denies change in vision and Reports loss of peripheral vision Reports Normal hearing present and Reports nasal congestion Cardiovascular: Reports Abdominal Distension, Reports Epigastric Pain and Denies dyspnea Respiratory: Denies cough and Denies dyspnea Gastrointestinal: Reports as per HPI, Reports abdominal pain, Reports constipation, Reports heartburn, Reports nausea and Reports vomiting Musculoskeletal: Reports back pain Reports Normal hearing present [facility] Past Medical History Medical History (Updated 11/20/23 @ 10:44 by Bill Anders MD) HTN (hypertension) CKD (chronic kidney disease) Asthma exacerbation High cholesterol Diabetes Bronchitis Family History Pertinent family history: no FH of colon cancer -ulcers Surgical History Surgical History (Updated 12/14/21 @ 00:02 by Anne Burden) Renal transplant recipient Kidney transplant recipient Social History Social History Household Members: Spouse and Children Housing: House Do you presently have visiting nurse or other home services: Yes Alcohol intake: never Patient Tobacco Use Status: Never used Tobacco Second Hand Smoke Exposure: No service: No Current occupational status: unemployed Meds Allergies Allergy/AdvReac Type Severity Reaction Status Date / Time Penicillins Allergy Mild RASH Verified 11/18/23 22:26 hydrocodone [From Vicodin] Allergy Stomach Verified 11/18/23 22:26 Upset losartan AdvReac Intermediate Headache,Di Verified 11/18/23 22:26 zziness Active Medications: Current Medications Acetaminophen (Acetaminophen 325 Mg Tablet) 975 mg PO TID [facility] Last Admin: 11/21/23 14:18 Dose: 975 mg Albuterol Sulfate (Albuterol Sulfate 90 Mcg 8 Gm Inhaler) 2 puff INHALE Q4H PRN PRN Reason: shortness of breath or wheezing Amlodipine Besylate (Amlodipine Besylate 2.5 Mg Tablet) 2.5 mg PO DAILY [facility]; Protocol Last Admin: 11/21/23 10:15 Dose: 2.5 mg Apixaban (Apixaban 5 Mg Tablet) 5 mg PO BID [facility] Last Admin: 11/21/23 10:14 Dose: 5 mg Aspirin (Aspirin Enteric Coated 81 Mg Tablet.) 81 mg PO DAILY [facility] Last Admin: 11/21/23 10:15 Dose: 81 mg Atorvastatin Calcium (Atorvastatin Calcium 40 Mg Tablet) 40 mg PO BEDTIME [facility] Last Admin: 11/20/23 20:38 Dose: 40 mg Bisacodyl (Bisacodyl 5 Mg Tablet.) 5 mg PO BEDTIME [facility] Last Admin: 11/20/23 20:38 Dose: 5 mg Brimonidine Tartrate (Brimonidine Tartrate 0.2% Oph 5 Ml Bottle) 1 drop EYE-RIGHT TID [facility] Last Admin: 11/21/23 14:20 Dose: 1 drop Calcium Carbonate (Calcium Carbonate 750 Mg Tab.Chew) 750 mg PO Q4H PRN PRN Reason: Heartburn Last Admin: 11/20/23 08:36 Dose: 750 mg Carvedilol (Carvedilol 25 Mg Tablet) 25 mg PO BID [facility]; Protocol Last Admin: 11/21/23 10:15 Dose: 25 mg Cilostazol (Cilostazol 50 Mg Tablet) 50 mg PO BID [facility] Last Admin: 11/21/23 10:15 Dose: 50 mg Dorzolamide/Timolol (Dorzolamide/Timolo 2.23%/0.68% 10 Ml Drbtl) 1 drop EYE-BOTH BID [facility] Last Admin: 11/21/23 10:27 Dose: 1 drop Ergocalciferol (Ergocalciferol (Vitamin D2) 1,250 Mcg Capsule) 1,250 mcg PO SA [facility] Glucose (Glucose Gel 15 Gm Gel..Gram.) 15 gm PO Q15M PRN; Protocol PRN Reason: per Hypoglycemia Standing Ord. Cefazolin Sodium/Dextrose (Ancef) 2 gm in 50 mls @ 100 mls/hr IV Q8H [facility] Last Infusion: 11/21/23 12:24 Dose: Infused Dextrose (D10) 250 mls @ 750 mls/hr IV Q15M PRN; Protocol PRN Reason: per Hypoglycemia Standing Ord. Insulin Glargine (Insulin Glargine,Hum.Rec.Anlog 100 Unit/Ml 10 Ml Vial) 20 unit SUBCUT DAILY [facility] Last Admin: 11/21/23 10:14 Dose: 20 unit Insulin Human Lispro (Insulin Lispro 100 Unit/Ml 3 Ml Vial) 0 unit SUBCUT QIDACHS [facility]; Protocol Last Admin: 11/21/23 11:47 Dose: 4 unit Isosorbide Mononitrate (Isosorbide Mononitrate 30 Mg Tab.Er.24h) 30 mg PO DAILY [facility]; Protocol Last Admin: 11/21/23 10:15 Dose: 30 mg Lactic Acid (Ammonium Lactate 12 % Cream 140 Gm Tube) 1 appl TOPICAL DAILY PRN; Protocol PRN Reason: foot infection Latanoprost (Latanoprost 0.005 % Ophth Loree 2.5 Ml Drops) 1 drop EYE-BOTH BEDTIME [facility] Last Admin: 11/20/23 20:52 Dose: Not Given Lidocaine (Lidocaine 4 % Patch Adh..Patch) 1 patch TRANSDERMA DAILY [facility]; Protocol Last Admin: 11/21/23 10:16 Dose: 1 patch Magnesium Hydroxide (Milk Of Magnesia 30 Ml Oral.Susp) 30 ml PO DAILY PRN PRN Reason: Constipation Melatonin (Melatonin 3 Mg Tablet) 6 mg PO BEDTIME PRN PRN Reason: Insomnia Methylnaltrexone [place] (Methylnaltrexone [place] 12 Mg/0.6 Ml Syringe) 12 mg SUBCUT DAILY [facility] Last Admin: 11/21/23 10:14 Dose: 12 mg Mycophenolate Sodium (Mycophenolate Sodium 180 Mg Tablet.Dr) 180 mg PO BID [facility] Last Admin: 11/21/23 10:15 Dose: 180 mg Nitroglycerin (Nitroglycerin 0.4 Mg Tab.Subl) 0.4 mg SUBLINGUAL Q5MX3 PRN PRN Reason: Chest Pain Last Admin: 11/20/23 04:19 Dose: 0.4 mg Ondansetron HCl (Ondansetron Hcl 4 Mg/2 Ml Vial) 4 mg IVPUSH Q6H PRN PRN Reason: Nausea and Vomiting Oxycodone HCl (Oxycodone Hcl Immed Release 5 Mg Tablet) 5 mg PO QID PRN PRN Reason: Pain, Severe (Pain Scale 7-10) Last Admin: 11/21/23 00:28 Dose: 5 mg Pantoprazole Sodium (Pantoprazole Sodium 40 Mg/10 Ml Vial) 40 mg IVPUSH DAILY@0630 [facility] Last Admin: 11/21/23 05:34 Dose: 40 mg Polyethylene Glycol (Polyethylene Glycol 3350 17 Gm Powd.Pack) 17 gm PO DAILY [facility] Last Admin: 11/21/23 10:14 Dose: 17 gm Pregabalin (Pregabalin 150 Mg Capsule) 150 mg PO BID [facility] Last Admin: 11/21/23 10:14 Dose: 150 mg Silver Sulfadiazine (Silver Sulfadiazine 1 % Cream 20 Gm Tube) 1 appl TOPICAL DAILY PRN PRN Reason: foot infection Sodium Chloride (0.9 % Sodium Chloride Flush 3 Ml Syringe) 3 ml IVFLUSH QSHIFT [facility] Last Admin: 11/21/23 08:33 Dose: 3 ml Tacrolimus (Tacrolimus 1 Mg Capsule) 2 mg PO BEDTIME [facility] Last Admin: 11/20/23 20:37 Dose: 2 mg Tacrolimus (Tacrolimus 1 Mg Capsule) 3 mg PO DAILY [facility] Last Admin: 11/21/23 11:37 Dose: Not Given Home Medications ?Medication ?Instructions ?Recorded ?Confirmed ?Last Taken ?Type atorvastatin 40 mg tablet 1 tab PO BEDTIME 02/21/21 11/19/23 12/02/21 History dorzolamide 22.3 mg-timolol 6.8 1 drp ophthalmic (eye) BID 02/21/21 11/19/23 12/02/21 History mg/mL eye drops insulin glargine 100 unit/mL (3 35 unit subcut DAILY 02/21/21 11/19/23 12/02/21 History mL) subcutaneous pen (Lantus Solostar U-100 Insulin) insulin lispro 100 unit/mL 16 unit subcut TIDAC 02/21/21 11/19/23 12/02/21 History subcutaneous pen (Humalog KwikPen (U-100) Insulin) latanoprost 0.005 % eye drops 1 drp ophthalmic (eye) BEDTIME 02/21/21 11/19/23 12/02/21 History mycophenolate sodium 180 mg 1 tab PO BID 02/21/21 11/19/23 12/02/21 History tablet,delayed release oxycodone-acetaminophen 5 mg-325 1 tab PO QID PRN pain 02/21/21 11/19/23 Unknown History mg tablet tacrolimus 1 mg capsule, 2 cap PO BEDTIME 02/21/21 11/19/23 12/02/21 History immediate-release aspirin 81 mg tablet,delayed 81 mg PO DAILY 12/03/21 11/19/23 11/18/23 History release brimonidine 0.2 % eye drops 1 drp ophthalmic-Right TID 12/03/21 11/19/23 12/02/21 History carvedilol 25 mg tablet 1 tab PO BID 12/03/21 11/19/23 12/02/21 History furosemide 40 mg tablet 1 tab PO DAILY 12/03/21 11/19/23 12/02/21 History pregabalin 150 mg capsule 1 cap PO BID 12/03/21 11/19/23 12/02/21 History tacrolimus 1 mg capsule, 3 mg PO DAILY 12/03/21 11/19/23 12/02/21 History immediate-release ammonium lactate 12 % topical cream 1 appl topical DAILY PRN foot 11/19/23 11/19/23 Unknown History infection cefazolin 2 gram solution for 2 g IV Q8H 11/19/23 11/19/23 Unknown History injection cilostazol 50 mg tablet 50 mg PO BID 11/19/23 11/19/23 Unknown History ergocalciferol (vitamin D2) 1,250 1,250 mcg PO SA 11/19/23 11/19/23 11/16/23 History mcg (50,000 unit) capsule isosorbide mononitrate 30 mg 30 mg PO DAILY 11/19/23 11/19/23 Unknown History tablet,extended release 24 hr metoclopramide HCl 5 mg tablet 5 mg PO TIDAC 11/19/23 11/19/23 Unknown History pantoprazole 40 mg tablet,delayed 40 mg PO DAILY@0630 11/19/23 11/19/23 Unknown History release silver sulfadiazine 1 % topical 1 appl topical DAILY PRN foot 11/19/23 11/19/23 Unknown History cream infection Physical Exam Vital Signs: Last Vital Signs Temp 97.6 F 11/21/23 15:35 Pulse 67 11/21/23 15:35 Resp 17 11/21/23 15:35 BP 93/47 L 11/21/23 15:35 Pulse Ox 100 11/21/23 15:35 O2 Del Method Nasal Cannula 11/21/23 15:35 O2 Flow Rate 3 11/21/23 15:35 Oxygen Flow Rate 2 11/18/23 22:24 BMI result Body Mass Index 37.4 Const Other: Gen: in no acute distress HEENT: sclera anicteric, moist mucus membranes Neck: supple Lungs: clear to auscultation bilaterally Heart: regular rate and rhythm Abd: soft, non-tender, obese Ext: Non pitting edema Skin: warm/well-perfused Neuro: alert and oriented x3, no focal findings Psych: appropriate affect Neuro Cranial nerves: Yes Normal hearing present Results Lab Results 11/20/23 05:11 11/21/23 05:26 Lab results: Chemistry 11/18/23 11/20/23 11/21/23 23:46 05:11 05:26 Sodium 137 136 130 L Potassium 4.8 4.3 4.2 Carbon Dioxide 20 L 19 L 21 L BUN 35 H 30 H 42 H Creatinine 1.23 1.18 2.08 H Calcium 9.4 9.5 9.2 Hematology 11/18/23 11/20/23 23:46 05:11 WBC 6.7 9.7 Hgb 8.9 L D 8.6 L Plt Count 242 D 249 Urinalysis 11/19/23 04:23 Urine Color Yellow Urine Appearance Clear Urine pH 5.5 Ur Specific [place] 1.015 Urine Protein Trace Urine Glucose (UA) Negative Urine Ketones Negative Urine Blood Negative Urine Nitrite Negative Ur Leukocyte Esterase Negative Assessment and Plan (1) Chest pain: Status: Acute (2) Abdominal pain: Qualifiers: Abdominal location: generalized Qualified Code(s): R10.84 - Generalized abdominal pain Status: Acute (3) HTN (hypertension): Status: Acute Plan 1. MARIAM: wide ddx including vol depletion/pre-renal; AGN or AIN related to recent infection or ABx less likely given UA negative; Obs uropathy also unlikely Rejection or Tacro toxcity also very much a concern 2. IS: maintained tacro/MMF as noted am tacro held ( ? why) 3. Veterbral osteo: on ABx as noted REC: xfer to [facility] so can track tacro levels nad renal func; repeat UA and get DSA levels ( at [facility]); avoid NTOxins I d/w Hospitalist and PT and her sister Jocelyn ( [phone]) who is very involved Procedures Date of Service Date of Service: 11/21/23
[2023-11-21 16:17] LABS: Glucose, Whole Blood 201 mg/dL (60-115)
--- NOTE | 2023-11-21 17:50 | PM.PNCARD ---
Subjective Subjective Date of Service: 11/21/23 Interval history: Seen examined at bedside in the morning. Confused and sleepy. Creatinine elevated. Tacrolimus dose was held and tacrolimus level was sent. Physical Exam Vital Signs: Last Vital Signs Temp 97.6 F 11/21/23 15:35 Pulse 67 11/21/23 16:20 Resp 17 11/21/23 15:35 BP 113/53 L 11/21/23 16:20 Pulse Ox 100 11/21/23 15:35 O2 Del Method Nasal Cannula 11/21/23 15:35 O2 Flow Rate 3 11/21/23 15:35 Oxygen Flow Rate 2 11/18/23 22:24 BMI result Body Mass Index 37.4 GENERAL APPEARANCE: Sleepy but arousable. Appears encephalopathy. NECK: no carotid bruit, no jugular venous distention. SKIN: no suspicious lesions, warm and dry. HEART: no murmurs, regular rate and rhythm. LUNGS: clear to auscultation bilaterally. ABDOMEN: soft, nontender. Distended. EXTREMITIES: no edema. PERIPHERAL PULSES: equal. NEUROLOGIC: No gross deficits, AAO X 3 Objective Labs and Meds 11/20/23 05:11 11/21/23 17:41 Lab results: Laboratory Results - last 24 hr 11/20/23 11/21/23 11/21/23 19:34 05:26 07:14 O2 Saturation ABG pH at Pt Temp ABG pCO2 at Pt Temp ABG pO2 at Pt Temp ABG HCO3 ABG Base Excess (Actual) Sodium 130 L Potassium 4.2 Chloride 101 Carbon Dioxide 21 L Anion Gap 12 BUN 42 H Creatinine 2.08 H Estim Creat Clear Calc 27.5 Estimated GFR 24 POC Glucose 261 H 111 Random Glucose 130 H Calcium 9.2 Magnesium 2.0 Troponin I High Sens 67.7 H* 11/21/23 11/21/23 11/21/23 08:47 11:36 16:12 O2 Saturation 99.0 ABG pH at Pt Temp 7.39 ABG pCO2 at Pt Temp 32 ABG pO2 at Pt Temp 91 ABG HCO3 19 L ABG Base Excess (Actual) -4.2 Sodium Potassium Chloride Carbon Dioxide Anion Gap BUN Creatinine Estim Creat Clear Calc Estimated GFR POC Glucose 234 H 201 H Random Glucose Calcium Magnesium Troponin I High Sens Progress Note: A&P Assessment and plan (1) HTN (hypertension): Status: Acute (2) Chest pain: Status: Acute (3) MARIAM (acute kidney injury): Status: Resolved Plan Pleasant 67 year female who presented with abdominal pain which was thought to be due to constipation and has improved. She also complained of some atypical chest pain which was reproducible. Today she had acute kidney injury and has been confused. She is on immunosuppressant due to renal transplant. Tacrolimus was held and level was sent. Nephrology will be involved. Not clinically ACS. Blood pressure control is okay currently. We will follow along with you. Thank you for allowing me to participate in the care of your patient. Please feel free to contact me if you have any questions. Time Spent With Patient Time: Total time managing care of this patient today ____ minutes. Progress Note: Quality Stroke Does the patient have a stroke diagnosis?: No Procedures Date of Service Date of Service: 11/21/23
[2023-11-21 18:01] LABS: Anion Gap 12 (12-20); Blood Urea Nitrogen 52 mg/dL (9-16); Calcium 8.5 mg/dL (8.4-10.2); Carbon Dioxide 20 mmol/L (22-29); Chloride 100 mmol/L (96-108); Creatinine Clr Calc Pharmacy 23.9; Estimated Glomerular Filt Rate 20; Glucose Random 201 mg/dL (60-115); Potassium 3.7 mmol/L (3.3-5.1); Sodium 128 mmol/L (135-145)
[2023-11-21 20:03] LABS: Glucose, Whole Blood 220 mg/dL (60-115)
[2023-11-21] MEDS: Atorvastatin Calcium 40 MG TABLET PO (20:48)
[2023-11-21] MEDS: Latanoprost 0.005 % Ophth Sol 2.5 ML DROPS 1 DROP EYE-BOTH (21:02)
[2023-11-22] MEDS: Acetaminophen 325 MG TABLET 975 MG PO (00:43)
[2023-11-22] MEDS: 0.9 % Sodium Chloride Flush 3 ML SYRINGE IVFLUSH (01:18)
[2023-11-22] MEDS: oxyCODONE HCl Immed Release 5 MG TABLET PO (02:39)
[2023-11-22] MEDS: ceFAZolin Sodium/Dextrose,Iso 2 GM/50 ML PIGGYBACK IV (03:36)
[2023-11-22 03:49] VITALS: BP 116/53; PULSE 67; RESP 18; TEMP 36.2; O2SAT 98
[2023-11-22] MEDS: Pantoprazole Sodium 40 MG/10 ML VIAL IVPUSH (05:26)
[2023-11-22 07:48] LABS: Glucose, Whole Blood 207 mg/dL (60-115)
[2023-11-22 07:55] VITALS: BP 143/63; PULSE 74; RESP 12; TEMP 36.1; O2SAT 100
--- NOTE | 2023-11-22 08:15 | P.PNIM_ITS ---
Subjective Subjective Date of Service: 11/21/23 Interval History: Patient noted to be lethargic, sleepy this morning, later became more awake alert answering questions appropriately patient had another episode of sleepiness with normal vitals but was un arousable, Later became awake alert, however was noted to have elevated creatinine, patient denies nausea, vomiting, tolerating diet, had 2-3 episode of semi formed/loose stools, CT abdomen showed physiologically distended bladder, with elevated bladder scan therefore Viera catheter placed with 500 urinary output. Complaining of lower back pain that is chronic due to diskitis, denies chest pain, no shortness of breath, no chest pain, no palpitations. Review of Systems All other system reviewed and are negative Physical Exam 2 Vital Signs: Vital Signs: Last Vital Signs Temp 96.9 F 11/22/23 07:55 Pulse 74 11/22/23 07:55 Resp 12 11/22/23 07:55 BP 143/63 H 11/22/23 07:55 Pulse Ox 100 11/22/23 07:55 O2 Del Method Nasal Cannula 11/22/23 07:55 O2 Flow Rate 2 11/22/23 07:55 Oxygen Flow Rate 2 11/18/23 22:24 BMI result Body Mass Index 37.4 Const: Other: Gen: in no acute distress HEENT: sclera anicteric, moist mucus membranes Neck: supple Lungs: clear to auscultation bilaterally Heart: regular rate and rhythm Abd: soft, non-tender, obese Ext: Non pitting edema Skin: warm/well-perfused Neuro: alert and oriented x3, no focal findings Psych: appropriate affect shut Objective Data Active Medications Acetaminophen (Acetaminophen 325 Mg Tablet) 975 mg PO TID [facility] Last Admin: 11/22/23 00:43 Dose: 975 mg Documented By: TIM Albuterol Sulfate (Albuterol Sulfate 90 Mcg 8 Gm Inhaler) 2 puff INHALE Q4H PRN PRN Reason: shortness of breath or wheezing Amlodipine Besylate (Amlodipine Besylate 2.5 Mg Tablet) 2.5 mg PO DAILY [facility]; Protocol Last Admin: 11/21/23 10:15 Dose: 2.5 mg Documented By: RICKEY Apixaban (Apixaban 5 Mg Tablet) 5 mg PO BID [facility] Last Admin: 11/21/23 20:48 Dose: 5 mg Documented By: TIM Aspirin (Aspirin Enteric Coated 81 Mg Tablet.) 81 mg PO DAILY [facility] Last Admin: 11/21/23 10:15 Dose: 81 mg Documented By: RICKEY Atorvastatin Calcium (Atorvastatin Calcium 40 Mg Tablet) 40 mg PO BEDTIME [facility] Last Admin: 11/21/23 20:48 Dose: 40 mg Documented By: TIM Bisacodyl (Bisacodyl 5 Mg Tablet.) 5 mg PO BEDTIME [facility] Last Admin: 11/21/23 20:49 Dose: Not Given Documented By: TIM Non-Admin Reason: Patient Refused Brimonidine Tartrate (Brimonidine Tartrate 0.2% Oph 5 Ml Bottle) 1 drop EYE- RIGHT TID [facility] Last Admin: 11/21/23 20:59 Dose: 1 drop Documented By: TIM Calcium Carbonate (Calcium Carbonate 750 Mg Tab.Chew) 750 mg PO Q4H PRN PRN Reason: Heartburn Last Admin: 11/20/23 08:36 Dose: 750 mg Documented By: ESTHELA Carvedilol (Carvedilol 25 Mg Tablet) 25 mg PO BID [facility]; Protocol Last Admin: 11/21/23 20:50 Dose: 25 mg Documented By: TIM Cilostazol (Cilostazol 50 Mg Tablet) 50 mg PO BID [facility] Last Admin: 11/21/23 20:49 Dose: 50 mg Documented By: TIM Dorzolamide/Timolol (Dorzolamide/Timolo 2.23%/0.68% 10 Ml Drbtl) 1 drop EYE- BOTH BID [facility] Last Admin: 11/21/23 20:59 Dose: 1 drop Documented By: TIM Ergocalciferol (Ergocalciferol (Vitamin D2) 1,250 Mcg Capsule) 1,250 mcg PO [facility] Glucose (Glucose Gel 15 Gm Gel..Gram.) 15 gm PO Q15M PRN; Protocol PRN Reason: per Hypoglycemia Standing Ord. Cefazolin Sodium/Dextrose (Ancef) 2 gm in 50 mls @ 100 mls/hr IV Q8H [facility] Last Infusion: 11/22/23 04:08 Dose: Infused Documented By: TIM Dextrose (D10) 250 mls @ 750 mls/hr IV Q15M PRN; Protocol PRN Reason: per Hypoglycemia Standing Ord. Insulin Glargine (Insulin Glargine,Hum.Rec.Anlog 100 Unit/Ml 10 Ml Vial) 20 unit SUBCUT DAILY [facility] Last Admin: 11/21/23 10:14 Dose: 20 unit Documented By: RICKEY Insulin Human Lispro (Insulin Lispro 100 Unit/Ml 3 Ml Vial) 0 unit SUBCUT QIDACHS [facility]; Protocol Last Admin: 11/21/23 20:51 Dose: 4 unit Documented By: TIM Isosorbide Mononitrate (Isosorbide Mononitrate 30 Mg Tab.Er.24h) 30 mg PO DAILY [facility]; Protocol Last Admin: 11/21/23 10:15 Dose: 30 mg Documented By: RICKEY Lactic Acid (Ammonium Lactate 12 % Cream 140 Gm Tube) 1 appl TOPICAL DAILY PRN; Protocol PRN Reason: foot infection Latanoprost (Latanoprost 0.005 % Ophth Loree 2.5 Ml Drops) 1 drop EYE-BOTH BEDTIME [facility] Last Admin: 11/21/23 21:02 Dose: 1 drop Documented By: TIM Lidocaine (Lidocaine 4 % Patch Adh..Patch) 1 patch TRANSDERMA DAILY [facility]; Protocol Last Admin: 11/21/23 10:16 Dose: 1 patch Documented By: RICKEY Magnesium Hydroxide (Milk Of Magnesia 30 Ml Oral.Susp) 30 ml PO DAILY PRN PRN Reason: Constipation Melatonin (Melatonin 3 Mg Tablet) 6 mg PO BEDTIME PRN PRN Reason: Insomnia Methylnaltrexone [place] (Methylnaltrexone [place] 12 Mg/0.6 Ml Syringe) 12 mg SUBCUT DAILY [facility] Last Admin: 11/21/23 10:14 Dose: 12 mg Documented By: RICKEY Mycophenolate Sodium (Mycophenolate Sodium 180 Mg Tablet.Dr) 180 mg PO BID [facility] Last Admin: 11/21/23 20:50 Dose: 180 mg Documented By: TIM Nitroglycerin (Nitroglycerin 0.4 Mg Tab.Subl) 0.4 mg SUBLINGUAL Q5MX3 PRN PRN Reason: Chest Pain Last Admin: 11/20/23 04:19 Dose: 0.4 mg Documented By: NIMO Ondansetron HCl (Ondansetron Hcl 4 Mg/2 Ml Vial) 4 mg IVPUSH Q6H PRN PRN Reason: Nausea and Vomiting Oxycodone HCl (Oxycodone Hcl Immed Release 5 Mg Tablet) 5 mg PO QID PRN PRN Reason: Pain, Severe (Pain Scale 7-10) Last Admin: 11/22/23 02:39 Dose: 5 mg Documented By: TIM Pantoprazole Sodium (Pantoprazole Sodium 40 Mg/10 Ml Vial) 40 mg IVPUSH DAILY@0630 [facility] Last Admin: 11/22/23 05:26 Dose: 40 mg Documented By: TIM Polyethylene Glycol (Polyethylene Glycol 3350 17 Gm Powd.Pack) 17 gm PO DAILY [facility] Last Admin: 11/21/23 10:14 Dose: 17 gm Documented By: RICKEY Pregabalin (Pregabalin 150 Mg Capsule) 150 mg PO BID [facility] Last Admin: 11/21/23 20:48 Dose: 150 mg Documented By: TIM Silver Sulfadiazine (Silver Sulfadiazine 1 % Cream 20 Gm Tube) 1 appl TOPICAL DAILY PRN PRN Reason: foot infection Sodium Chloride (0.9 % Sodium Chloride Flush 3 Ml Syringe) 3 ml IVFLUSH QSHIFT [facility] Last Admin: 11/22/23 01:18 Dose: 3 ml Documented By: TIM Tacrolimus (Tacrolimus 1 Mg Capsule) 2 mg PO BEDTIME [facility] Last Admin: 11/21/23 21:51 Dose: 2 mg Documented By: TIM Tacrolimus (Tacrolimus 1 Mg Capsule) 3 mg PO DAILY [facility] Last Admin: 11/21/23 11:37 Dose: Not Given Documented By: RICKEY Non-Admin Reason: Physician Held Med Labs 11/20/23 05:11 11/21/23 17:41 Labs: Laboratory Results - last 24 hr 11/21/23 11/21/23 11/21/23 08:47 11:36 16:12 O2 Saturation 99.0 ABG pH at Pt Temp 7.39 ABG pCO2 at Pt Temp 32 ABG pO2 at Pt Temp 91 ABG HCO3 19 L ABG Base Excess (Actual) -4.2 Anion Gap Estim Creat Clear Calc Estimated GFR POC Glucose 234 H 201 H Random Glucose Calcium 11/21/23 11/21/23 11/22/23 17:41 19:56 07:42 O2 Saturation ABG pH at Pt Temp ABG pCO2 at Pt Temp ABG pO2 at Pt Temp ABG HCO3 ABG Base Excess (Actual) Anion Gap 12 Estim Creat Clear Calc 23.9 Estimated GFR 20 POC Glucose 220 H 207 H Random Glucose 201 H Calcium 8.5 D Assessment and Plan (1) HTN (hypertension): Status: Acute Plan 67 yo F with a pmhx of IDDM, CKD s/p kidney transplant on chronic immunosuppression, HLD, HTN, GERD, and mild intermittent asthma, currently being treated for osteomyelitis/diskitis T7 with cefazolin TID via PICC line, admitted with upper abd pain, nausea, vomiting and constipation x2 weeks,CT abdomen showed no acute GI findings,normal CBC ,lipase and LFTs ,UA unremarkable patient treated with antiemetics, laxatives including MiraLax, Dulcolax and relistor, seen by campaign director they agreed with above treatment plan, patient responded well to above treatment has had multiple stools, no further episodes of nausea, vomiting, recommend to minimize use of narcotics and to take high- fiber diet, will hold laxatives for now and recommend daily MiraLax and a stool softener once diarrhea resolves. chest pain, sharp stabbing in character and pleuritic, will mild troponin elevation, seen by hydraulic oil tool operator Dr. Anders who felt pain is musculoskeletal recommended symptomatic treatment, patient has known history of coronary disease, also with iron deficiency anemia that may be contributing to demand supply mismatch, limited echocardiogram obtained report pending, continue statin, Imdur, Norvasc and aspirin, , last night patient went into new onset atrial fibrillation with stable ventricular rate, continue Coreg and aspirin , during day patient was in and out of atrial fibrillation but this afternoon converted back to normal sinus rhythm and remains in this rhythm for last several hours therefore will hold off on IV heparin drip. Acute kidney injury on CKD status post renal transplant, seen by community health advocate Dr. Gonzales recommend to transfer patient to [facility] for further workup question biopsy, CT abdomen showed distended bladder noted to have elevated bladder scan, therefore Viera catheter placed for possible retention continue tacrolimus and mycophenolate, follow BMP. Osteomyelitis/diskitis T7/T8, CT abdomen and pelvis ,showed finding suspicious for T7/T8 diskitis osteomyelitis, recommend to continue cefazolin TID via PICC line as before and follow-up at [facility], as previously planned. IDDM recommend to continue Lantus, dose reduced to 16 units, baseline dose 35 units, continue diabetic diet, insulin sliding scale and monitor blood sugar q.i.d. HTN tolerating by mouth medication, continue all home medications, and follow blood pressure closely. Acute on chronic normocytic Anemia- likely due to CKD, B12 and Folate within normal range, low iron and % saturation, recommend iron supplements that might contribute to constipation and Procrit as per Nephrology. DVT prophylaxis compression boots Patient is scheduled to discharge to [facility] due to MARIAM with hx of renal transplant . Quality Stroke Does the patient have a stroke diagnosis?: No VTE Prior VTE?: No VTE Risk Level:: Medical - moderate - high VTE Device Contraindication: N/A - Device Ordered VTE Drug Contraindication: N/A - Med Ordered
--- NOTE | 2023-11-22 10:42 | MHC.CM.PN ---
PATIENT WAS ACUTE CARE TRANSFER TO [facility]
[2023-11-23 03:28] LABS: Tacrolimus Prograf 3.7 mcg/L
== END 2023-11-22 09:01 | disposition short-term general hospital (02) | DRG 74 ==
LOC: HO.ED 11-19 07:01 → HO.EDOVER 11-19 09:36 → HO.S3 11-19 16:50
PROVIDERS: Emergency Medicine; Internal Medicine; Admitting Provider Physician Assistant; Emergency Provider Emergency Medicine; PCP Internal Medicine; Visit Provider Hospitalist
DX: E11.43 Type 2 diabetes mellitus with diabetic autonomic (poly)neuropathy (principal); D84.821 Immunodeficiency due to drugs; T86.12 Kidney transplant failure; M46.24 Osteomyelitis of vertebra, thoracic region; I12.9 Hypertensive chronic kidney disease with stage 1 through stage 4 chronic kidney disease, or unspecified chronic kidney disease; E11.22 Type 2 diabetes mellitus with diabetic chronic kidney disease; K31.84 Gastroparesis; N18.30 Chronic kidney disease, stage 3 unspecified; E11.69 Type 2 diabetes mellitus with other specified complication; I25.10 Atherosclerotic heart disease of native coronary artery without angina pectoris; J45.20 Mild intermittent asthma, uncomplicated; R07.89 Other chest pain; M46.44 Discitis, unspecified, thoracic region; K59.00 Constipation, unspecified; K21.9 Gastro-esophageal reflux disease without esophagitis; I48.91 Unspecified atrial fibrillation; D63.1 Anemia in chronic kidney disease; Z95.5 Presence of coronary angioplasty implant and graft; Z20.822 Contact with and (suspected) exposure to COVID-19; Z79.621 Long term (current) use of calcineurin inhibitor; Z23 Encounter for immunization; Z79.82 Long term (current) use of aspirin; Z79.4 Long term (current) use of insulin; Z79.899 Other long term (current) drug therapy
CPT/HCPCS: 0241U; 36415; 36600; 71045; 74176; 80048; 80076; 80197; 81003; 82607; 82746; 82803; 82947; 83540; 83605; 83690; 83735; 84484; 85025; 85610; 90656; 93005; 93306; 99285; C1758; J0360; J0690; J1171; J1650; J2212; J2270; J2405; J2470; J2765; Q9957

== ENCOUNTER 2023-11-19 09:22 | Outpatient (BNV) | payer MEDICARE, MEDICAID, SELFPAY | END 2023-11-20 07:00 | PROVIDERS: Admitting Provider Physician Assistant; Emergency Provider Emergency Medicine; PCP Internal Medicine; Visit Provider Internal Medicine Cardiovascular Disease | DX: I27.20 Pulmonary hypertension, unspecified (principal) | CPT/HCPCS: 93306 ==

== ENCOUNTER → 2023-11-19 09:22 | Outpatient (BNV) | payer MEDICARE, MEDICAID, SELFPAY | PROVIDERS: Admitting Provider Physician Assistant; Emergency Provider Emergency Medicine; PCP Internal Medicine; Visit Provider Physician Assistant | DX: R10.9 Unspecified abdominal pain (principal); M86.9 Osteomyelitis, unspecified | CPT/HCPCS: 99222; 99233; 99239; 99499 ==

== ENCOUNTER → 2023-11-19 09:22 | Outpatient (BNV) | payer MEDICARE, MEDICAID, SELFPAY | PROVIDERS: Admitting Provider Physician Assistant; Emergency Provider Emergency Medicine; PCP Internal Medicine; Visit Provider Internal Medicine Cardiovascular Disease | DX: R07.9 Chest pain, unspecified (principal); R10.84 Generalized abdominal pain; I10 Essential (primary) hypertension; N17.9 Acute kidney failure, unspecified | CPT/HCPCS: 99223; 99233 ==

== ENCOUNTER → 2023-11-19 09:22 | Outpatient (BNV) | payer MEDICARE, MEDICAID, SELFPAY | PROVIDERS: Admitting Provider Physician Assistant; Emergency Provider Emergency Medicine; PCP Internal Medicine; Visit Provider Internal Medicine Gastroenterology | DX: R10.84 Generalized abdominal pain (principal) | CPT/HCPCS: 99223 ==